=== PATIENT | female | born 1945 | race Caucasian/White ===

== ENCOUNTER → 2022-03-27 13:14 | Outpatient (CLI) | payer MEDICARE, OTHER, SELFPAY ==
[2022-03-27 14:10] VITALS: PULSE 93
--- NOTE | 2022-03-27 14:30 | PC.NURSE ---
ATTEMPTED DLCO MULTIPLE TIMES. PT UNABLE TO DO TEST. AUDIBLY WHEEZING AND WOULD BE SOA AFTER ANY EXERTION TAKING AWHILE TO RECOVER.
[2022-03-27 14:40] VITALS: BP 146/91; BP 164/97; PULSE 85; PULSE 86; RESP 24; RESP 28; O2SAT 91; O2SAT 95
--- NOTE | 2022-03-27 14:48 | CT_ITS ---
FINAL REPORT TECHNIQUE: Axial CT images were performed from the lung apices through the upper abdomen. Coronal reformats were submitted. This study was performed with techniques to keep radiation doses as low as reasonably achievable (ALARA). Individualized dose reduction techniques using automated exposure control or adjustment of mA and/or kV according to the patient's size were employed. CLINICAL HISTORY: f/u Lung nodule FINDINGS: There is no axillary adenopathy. There is no hilar or mediastinal mass or adenopathy. Heart size is normal. There is no pericardial or pleural effusion. Limited images of the upper abdomen are unremarkable. There is severe emphysema. Mild scarring is noted. There is a 5 mm nodule in the medial right upper lobe seen on image 14. A calcified granuloma is present in the left lower lobe. There is no dominant mass or suspicious nodule. IMPRESSION: 5 mm right upper lobe nodule. Recommend CT follow-up in 12 months. Reviewed, Interpreted and Dictated by Zeeshan Bullard III, MD Transcribed by Christina Anders Authenticated and [facility]
== END ==
PROVIDERS: PCP Internal Medicine Adolescent Medicine; Visit Provider Internal Medicine Pulmonary Disease
DX: R06.09 Other forms of dyspnea (principal); R91.8 Other nonspecific abnormal finding of lung field
CPT/HCPCS: 71250; 94060; 94618; 94640; 94727; 94729

== ENCOUNTER → 2022-07-27 09:27 | Outpatient (CLI) | payer MEDICARE, SELFPAY ==
--- NOTE | 2022-07-27 09:32 | XR_ITS ---
FINAL REPORT TECHNIQUE: Bone densitometry calculations of the lumbar spine and left hip were obtained. CLINICAL HISTORY: . OSTEOPOROSIS FINDINGS: DEXA BONE DENSITY AXIAL SKELETON Using L1-4, the bone mineral density of the spine is 0.966 g/cm2, corresponding to T-score of -0.7. Using the right hip, the bone mineral density of the femoral neck is 0.616 g/cm2, corresponding to a T-score of -2.7. NOTE: T-score: Standard deviation compared with peak bone mass of young adult mean. *Following the recommendations of the International Society of Bone Densitometry, classification of hip BMD is based on the lower of two T-scores; total hip or femoral neck. IMPRESSION: Osteoporosis: Lowest T-score is at or below -2.5. This patient's T-score meets the World Health Organization criteria for osteoporosis. Reviewed, Interpreted and Dictated by Zeeshan Bullard III, MD Transcribed by Antoinette Iglesias Authenticated and [facility]
--- NOTE | 2022-07-27 09:32 | MM_ITS ---
PROCEDURE INFORMATION: Exam: Bilateral Screening 3D Mammography Exam date and time: 07/27/2022 9:29 AM Age: 76 years old Clinical indication: Screening examination TECHNIQUE: Imaging protocol: Bilateral Screening tomosynthesis and 2D mammography including computer-aided detection (CAD) when performed. COMPARISON: No relevant prior studies available. FINDINGS: MAMMOGRAPHY: Breast composition: The breasts are extremely dense, which lowers the sensitivity of mammography. Mass: None. Architectural distortion: None. Calcifications: No suspicious calcifications. Asymmetric density: None. Skin thickening: None. Axillary adenopathy: None. IMPRESSION: No mammographic evidence of malignancy. Annual screening is recommended unless otherwise clinically indicated. ASSESSMENT: BI-RADS Category 1: Negative
== END ==
PROVIDERS: PCP Internal Medicine Adolescent Medicine; Visit Provider Nurse Practitioner Family
DX: Z12.31 Encounter for screening mammogram for malignant neoplasm of breast (principal); M81.0 Age-related osteoporosis without current pathological fracture
CPT/HCPCS: 77063; 77067; 77080

== ENCOUNTER → 2023-04-19 09:49 | Outpatient (CLI) | payer MEDICARE, OTHER, SELFPAY ==
--- NOTE | 2023-04-19 10:14 | CT_ITS ---
FINAL REPORT TECHNIQUE: The patient was injected with IV contrast. Axial images were obtained through the chest in a PE protocol. 3-D reconstruction images were also performed. Individualized dose reduction techniques using automated exposure control or adjustment of the MA and/or KV according to patient's size were employed. CLINICAL HISTORY: HYpoxia adn chest pain COMPARISON: 03/27/2022 FINDINGS: Mediastinal vasculature is adequately opacified. No pulmonary artery filling defects are identified to suggest PE. There is no aortic dissection. There is no axillary adenopathy. There is no hilar or mediastinal adenopathy. The heart size is normal. There is no pericardial or pleural effusion. There are advanced changes of centrilobular emphysema. Irregular density is seen in the posterior right upper lobe which appears less nodular than on prior exam, favor scarring. No new mass or nodule is seen. There is a moderate size hiatal hernia. Limited imaging of the upper abdomen demonstrates no acute abnormality. IMPRESSION: No pulmonary embolus or dissection. Advanced changes of centrilobular emphysema without significant progression from prior exam. Reviewed, Interpreted and Dictated by Enzo Harrell MD Transcribed by Shira Mays Authenticated and [facility]
[2023-04-19 10:21] LABS: Blood Urea Nitrogen 26 mg/dl (7-17); Estimated Glomerular Filt Rate 97 ml/min (>60); GFR (African American) 118 ML/MIN (>60)
== END ==
PROVIDERS: PCP Internal Medicine Adolescent Medicine; Visit Provider Internal Medicine Pulmonary Disease
DX: R06.09 Other forms of dyspnea; R07.9 Chest pain, unspecified
CPT/HCPCS: 36415; 71275; 82565; 84520; Q9967

== ENCOUNTER → 2023-05-13 12:07 | Outpatient (CLI) | payer MEDICARE, OTHER, SELFPAY ==
[2023-05-13 13:12] LABS: Basophils # 0.1 K/mm3 (0-0.2); Basophils % 1.9 % (0.1-2.0); Eosinophils # 0.3 K/mm3 (0.0-0.4); Eosinophils % 5.5 % (0.1-12.0); Hematocrit 41.5 % (37.0-47.0); Lymphocytes # 1.7 K/mm3 (0.7-4.5); Lymphocytes % 32.1 % (10-50); Mean Corpuscular HGB Conc 31.5 g/dL (31.8-35.4); Mean Corpuscular Hemoglobin 30.8 pg (27.0-31.2); Mean Corpuscular Volume 97.8 fl (81-99); Mean Platelet Volume 8.6 fl (7.4-10.4); Monocytes # 0.3 K/mm3 (0.1-1.0); Monocytes % 4.8 % (1.7-9.3); Neutrophils % 55.7 % (37.0-80.0); Platelet Count 233 K/mm3 (142-424); Red Blood Count 4.24 M/mm3 (4.20-5.40); Red Cell Distribution Width 12.4 % (11.5-17.5); White Blood Count 5.4 K/mm3 (4.8-10.8)
[2023-05-13 13:41] LABS: Alanine Aminotransferase 22 U/L (12-78); Albumin Level 4.1 g/dl (3.5-5.0); Alkaline Phosphatase 97 U/L (38-126); Anion Gap 11.6 mEq/L (5-15); Aspartate Amino Transferase 24 U/L (14-36); Bilirubin,Direct 0.2 mg/dl (0.0-0.4); Bilirubin,Indirect 0.4 mg/dL (0.0-0.9); Bilirubin,Total 0.6 mg/dl (0.2-1.3); Bilirubin,Unconjugated 0.4 mg/dL (0.0-1.1); Blood Urea Nitrogen 25 mg/dl (7-17); Calcium 9.4 mg/dl (8.4-10.2); Carbon Dioxide 36 mmol/L (22.0-30.0); Chloride 91 mmol/L (98-107); Chol/HDL Ratio 1.9 (1-3.5); Cholesterol 181 mg/dl (140-200); Estimated Glomerular Filt Rate 97 ml/min (>60); GFR (African American) 118 ML/MIN (>60); Glucose 84 mg/dl (74-100); HDL Cholesterol 96 mg/dl (40-60); Magnesium 1.6 mg/dl (1.6-2.3); Potassium 4.6 mmoL/L (3.5-5.1); Sodium 134 mmol/L (136-145); Triglycerides 71 mg/dl (30-150); VLDL Cholesterol 14 mg/dL (0-40)
[2023-05-13 13:53] LABS: Direct LDL Cholesterol 76.26 mg/dL (100-129)
[2023-05-13 13:58] LABS: Free T4 (Free Thyroxine) 1.11 ng/dl (0.78-2.19)
[2023-05-13 14:10] LABS: Thyroid Stimulating Hormone 0.89 uIU/mL (0.465-4.68)
== END ==
PROVIDERS: PCP Internal Medicine Adolescent Medicine; Visit Provider Physician Assistant
DX: I10 Essential (primary) hypertension (principal); J44.9 Chronic obstructive pulmonary disease, unspecified; R00.0 Tachycardia, unspecified; R06.09 Other forms of dyspnea; R07.89 Other chest pain
CPT/HCPCS: 36415; 80048; 80061; 80076; 83735; 84439; 84443; 85025; 93270

== ENCOUNTER → 2023-05-27 09:00 | Outpatient (CLI) | payer MEDICARE, OTHER, SELFPAY ==
[2023-05-27] VITALS (8 sets, daily range): BP systolic 133–161; BP diastolic 71–88; PULSE 68–88; RESP 18–22; TEMP 36.8; O2SAT 96–98; BMI 17.9
--- NOTE | 2023-05-27 09:01 | CT_ITS ---
APPROVED REPORT Sales Project Coordinator: CLINICAL INDICATION Chest Pain TECHNIQUE Image Acquisition: A 128 slice MDCT scanner (AG&Pa View) was used for data acquisition. A noncontrast coronary calcium scan was performed. Bolus tracking in the ascending aorta with a threshold of 180 HU was performed. Immediately afterwards, ECG synchronized cardiac CT was then performed from the cardiac base to apex using retrospective gating with ECG tube current modulation. A total of 85 mL of Isovue 370 mg/mL contrast medium was administered at 5 mL/sec followed by a saline flush using a biphasic injection protocol. A tube voltage of 120 KVp was used. The patient received the following medications prior to the cardiac CT. 100 mg of oral metoprolol 30 mg of intravenous metoprolol. 0.8 mg of sublingual nitroglycerin. The average heart rate at the time of acquisition was 66 bpm and regular. Image Reconstruction Transaxial images were reconstructed at 0.67 mm slide thickness. Data was reviewed interactively on an advanced workstation capable of 2 and 3-dimensional displays in all conventional reconstruction formats, including multiplanar reformations, maximum intensity projections, curved multiplanar reformations, and volume rendered reconstructions. When applicable, selected routine images describing the relevant coronary anatomy and pathology were saved and sent to PACS. Complications None Technical Quality Overall image quality was good. Coronary artery opacification was adequate. Total DLP (Dose-Length Product) is 1481.6 mGy-cm. The reported value represents the total of one or more individual components during the CT acquisition of this date and at this time, and as such, the same value may appear in more than one CT report depending on the interpreting/reporting physicians. COMPARISON None FINDINGS CT Coronary Calcium Scoring LMA (Left Main Artery) = 0 LAD (Left Anterior Descending) = 549 LCX (Left Coronary Circumflex) = 0 RCA (Right Coronary Artery) = 2 Total Calcium Score = 551 using the AJ-130 method. The interpretation of the calcium heart score is based on the following continuum*: 0 = no calcified plaque detected (risk of coronary artery disease is very low ??? less than 5%) 1-10 = calcium detected in extremely minimal levels (risk of coronary diseases is still low ??? less than 10%) 11-100 = mild levels of plaque detected with certainty (mild or minimal narrowing of heart arteries is likely) 101-400 = definite,at least moderate levels of plaque detected (relatively high risk of a heart attack within 3-5 years) >401-999 = extensive levels of plaque detected (high risk of heart attack, high levels of vascular disease are present, high likelihood of at least one significant coronary narrowing) *The calcium heart score quantifies the burden of coronary calcification/plaque in the coronary arteries. The calcium heart score is not able to evaluate the presence or burden of non-calcified (i.e. soft) plaque. The observed calcium score of 551 is at 75 percentile for subjects of the same age, sex, and race/ethnicity. There is also identifiable calcification in the ascending and descending aorta, aortic valve, and mitral annulus. Coronary CT Angiography Coronaries have normal origin and proximal course. The coronary arterial system is right dominant. Note: Stenosis is reported as maximum percentage diameter stenosis. Stenosis grading is reported using the following scheme: Quantitative Stenosis Grading: Left Main (LM): The left main originates normally from the left sinus of Valsalva. The LM bifurcates into the left anterior descending artery and left circumflex artery. The LM is patent with no evidence of atherosclerosis. Left A
--- NOTE | 2023-05-27 09:17 | CA_ITS ---
APPROVED REPORT EXAM: Comprehensive 2D, Doppler, and color-flow Echocardiogram Balance Wheel Arm Burnisher: LUIGI Dowling, RVS Ht: 5 ft 0 in Wt: 92lbs BSA: 1.34 BP: 135/75 mmHg Indications: COPD, SOB, HAMILTON, HTN, MURMUR Echo Enhancing Agent Comments: Patient scanned upright due to destauration of O2- dyspnea with any exertion. 2D Dimensions Aortic Root 2.19 cm F: 2.7 - 3.3 LA Volume 30.70 mL Left Atrium 2.14 cm F: 2.7 - 3.8 LA Volume Index 22.91 mL/m2 (M/F) 16-34 LVOT 1.89 cm (M/F) 1.5-2.5 M-Mode Dimensions RVDd 1.85 cm (0.9-2.6) LA Diam 3.67 cm (1.9-4.0) LVDd 4.20 cm (3.5-5.7) Ao Diam 3.53 cm (2.0-3.7) LVDs 2.95 cm (3.5-5.7) IVSd 0.81 cm (0.6-1.1) PWd 0.64 cm (0.6-1.1) EF (Teich) 57.30% EPSs 0.37 cm FS 29.80% EDV (Teich) 78.60 mL TAPSE 1.88 (<1.7) ESV (Teich) 33.60 mL LV Diastology E Decel Time 200.00 (160-240 msec) E/A Ratio 0.83 MED E' 7.00 (< 7 cm/sec) MED A' 13.00 cm/s E'/MED E' Ratio 12.56 (>14) LAT E' 8.80 (<10 cm/sec) LAT A' 14.00 cm/s E/LAT E' Ratio 9.99 (>14) Aortic Valve LVOT Max 110.00 (70-110 cm/s) LVOT VTI 26.71 cm AoV Peak Noe. 104.00 (50-130 cm/s) AO Peak GR. 4.40 mmHg AO Mean GR. 2.20 (<5 mmHg) AO VTI 23.67 (18-25 cm) JANIE (VTI) 3.17 (2.5-4.5 cm2) Mitral Valve MV A Velocity 107.00 (40-130 cm/s) E/A Ratio 0.83 MV Decel. Time 200.00 (160-240 ms) Pulmonary Valve PV Peak Velocity 80.00 (50-150 cm/s) IL End VMAX 252.00 cm/s Tricuspid Valve TR P. Velocity 285.00 cm/s RAP Estimate 12.00 mmHg RVSP 44.60 mmHg Left Ventricle The left ventricle is normal size. The left ventricular systolic function is normal. The left ventricular ejection fraction is within the normal range. There is increased LV wall thickness (IVSd=1.4 cm). There is no LVOT gradient at rest. There is normal LV segmental wall motion. Transmitral Doppler flow pattern suggests impaired LV relaxation. LVEF is 65%. Right Ventricle The right ventricle is normal size. The right ventricular systolic function is normal. Atria The left atrium size is normal. The right atrium size is normal. There is no Doppler evidence of interatrial shunt. Aortic Valve The aortic valve is mildly thickened. There is no aortic valvular stenosis. No aortic regurgitation is present. Mitral Valve The mitral valve is mildly thickened. There is chordal systolic anterior motion (COLIN), but no COLIN of the leaflet itself. No evidence of mitral valve stenosis. Mild mitral regurgitation. Tricuspid Valve The tricuspid valve leaflets are thin and pliable. Trace tricuspid regurgitation. There is insufficient TR jet to estimate RVSP. Pulmonic Valve The pulmonary valve is normal in structure. Trace pulmonic regurgitation. Great Vessels The aortic root is normal in size. The ascending aorta is not well visualized. IVC is normal in size and collapses >50% with inspiration. Pericardium There is no pericardial effusion. Other Information Study Quality: Fair Conclusion Normal biventricular systolic function. Markedly increased LV wall thickness (IVSd 1.4 cm). Mild MR. Further evaluation for infiltrative disease, namely amyloidosis and HCM, is recommended. Cardiac MRI, PYP scan, and lab testing for amyloidosis is suggested, if clinically indicated. Electronically signed by : Swetha Hale MD 05/29/2023 23:12:21
--- NOTE | 2023-05-27 13:52 | PC.NURSE ---
1215- pt arrived in postop via stretcher, [facility]I was given report from Viola- pt comfortable on stretcher with O2 NC @ 3L, VSS 1230- ECHO staff took pt for procedure via her WC with O2 NC @ 3L during transport, Echo staff to [place] pt
== END ==
PROVIDERS: PCP Internal Medicine Adolescent Medicine; Visit Provider Physician Assistant
DX: I10 Essential (primary) hypertension (principal); J44.9 Chronic obstructive pulmonary disease, unspecified; R00.0 Tachycardia, unspecified; R06.09 Other forms of dyspnea; R07.89 Other chest pain
CPT/HCPCS: 75574; 93306; Q9967

== ENCOUNTER 2023-06-24 08:05 | Day surgery (SDC) | payer MEDICARE, OTHER, SELFPAY ==
[2023-06-24] VITALS (13 sets, daily range): BP systolic 142–186; BP diastolic 52–105; PULSE 62–79; RESP 17–18; O2SAT 90–100; BMI 15.4
--- NOTE | 2023-06-24 07:08 | IR_ITS ---
APPROVED REPORT Patient Location: Outpatient Java Programmer Analyst: EDILMA Willingham RT (R) PROCEDURES Selective coronary angiogram Drug-eluting stent deployment to the mid LAD INDICATION Coronary artery disease, Abnormal CCTA, Informed consent was obtained prior to the procedure. COMPLICATIONS NONE Estimated Blood Loss: LESS THAN 10 ML TECHNIQUE One percent lidocaine used to anesthetize the right anterior aspect of the wrist. The right radial artery was accessed via the Seldinger technique. A 6 [place] sheath was placed in the right radial artery. 2.5 mg of Verapamil, 800 mcg of nitroglycerin, 1mg Lidocaine and 5000 U Heparin were given through the arterial sheath. The papa catheter was also used to perform selective coronary angiogram. At the end of the diagnostic angiogram therapeutic heparin was administered giving a therapeutic ACT and the guide catheter was placed in the left main artery followed by Choice PT extra-support wire placed distally. A 2.75 x 26 mm [place] frontier stent was deployed in the mid LAD at 18 taran reducing the severe stenosis to 0%. CARSON-3 flow was present before and after the procedure. At the end of the procedure the apparatus was removed the sheath was removed and hemostasis was achieved using TR banding patient was transferred to the postop holding in stable condition ANGIOGRAPHIC RESULTS The left main artery Normal The left anterior descending artery Has mild calcified proximal 10 to 20% stenosis with a mid vessel 30% stenosis followed by an additional mid vessel eccentric calcified 70 to 80% stenosis. A large first diagonal artery has an ostial proximal smooth 30% stenosis The circumflex artery Is nondominant yet still large and has mild atheromatous plaque nothing greater than 10 to 20% The right coronary artery Is a dominant vessel and has a proximal eccentric 30 to 40% calcified stenosis The HARDEN ventriculogram reveals Not performed The left ventricular end-diastolic pressure Not measured IMPRESSION Severe mid LAD disease as described above Successful stenting of the mid LAD severe disease reduced to 0% with 1 drug-eluting stent Persistent mild to moderate stenosis in the proximal dominant right coronary artery, first diagonal artery, and mild disease in the nondominant circumflex artery PLAN 1. Plavix 75+ aspirin 81 mg daily 2. LDL less than 55 to be achieved with high intensity statin 3. Avoidance of tobacco products 4. Risk factor modification 5. Cardiac rehabilitation Electronically signed by : Rory Simpson MD 06/24/2023 10:31:56
[2023-06-24 08:52] LABS: Basophils # 0.1 K/mm3 (0-0.2); Basophils % 1.2 % (0.1-2.0); Eosinophils # 0.4 K/mm3 (0.0-0.4); Eosinophils % 4.6 % (0.1-12.0); Hematocrit 41.3 % (37.0-47.0); Hemoglobin 13.5 g/dL (12.2-16.2); Lymphocytes # 1.9 K/mm3 (0.7-4.5); Lymphocytes % 24.9 % (10-50); Mean Corpuscular HGB Conc 32.7 g/dL (31.8-35.4); Mean Corpuscular Hemoglobin 32.4 pg (27.0-31.2); Mean Corpuscular Volume 99.1 fl (81-99); Mean Platelet Volume 8.3 fl (7.4-10.4); Monocytes # 0.3 K/mm3 (0.1-1.0); Monocytes % 3.8 % (1.7-9.3); Neutrophils # 5.1 K/mm3 (1.8-7.8); Neutrophils % 65.4 % (37.0-80.0); Platelet Count 229 K/mm3 (142-424); Red Blood Count 4.17 M/mm3 (4.20-5.40); Red Cell Distribution Width 12.2 % (11.5-17.5); White Blood Count 7.8 K/mm3 (4.8-10.8)
[2023-06-24 09:01] LABS: Blood Urea Nitrogen 21 mg/dl (7-17); Calcium 8.9 mg/dl (8.4-10.2); Carbon Dioxide 37 mmol/L (22.0-30.0); Chloride 93 mmol/L (98-107); Creatinine Clearance Estimated 31 mL/min (50-200); Estimated Glomerular Filt Rate 97 ml/min (>60); GFR (African American) 118 ML/MIN (>60); Glucose 101 mg/dl (74-100); Sodium 139 mmol/L (136-145)
[2023-06-24 11:07] LABS: CATHL Activated Clotting Time 351 SEC (74-125)
== END 2023-06-24 14:08 | disposition home or self-care (01) ==
LOC: CATHLAB 08:06
PROVIDERS: PCP Internal Medicine Adolescent Medicine; Visit Provider Internal Medicine
DX: R06.09 Other forms of dyspnea (principal); R93.1 Abnormal findings on diagnostic imaging of heart and coronary circulation; R94.31 Abnormal electrocardiogram [ECG] [EKG]; Z79.899 Other long term (current) drug therapy; J96.11 Chronic respiratory failure with hypoxia; Z99.81 Dependence on supplemental oxygen; J44.9 Chronic obstructive pulmonary disease, unspecified; I10 Essential (primary) hypertension; I25.10 Atherosclerotic heart disease of native coronary artery without angina pectoris
CPT/HCPCS: 80048; 85025; 85347; 92928; 93454; 99152; C1725; C1769; C1876; C9600; J1644; Q9967

== ENCOUNTER 2023-07-17 08:16 | Observation (INO) | payer MEDICARE, OTHER, SELFPAY ==
[2023-07-17] VITALS (27 sets, daily range): BP systolic 135–198; BP diastolic 75–135; PULSE 74–89; RESP 15–26; TEMP 36.6–36.7; O2SAT 90–99; BMI 17.9; BMI 18.2
--- NOTE | 2023-07-17 08:20 | XR_ITS ---
PROCEDURE INFORMATION: Exam: XR Chest Exam date and time: 07/17/2023 8:22 AM Age: 77 years old Clinical indication: Cough; Additional info: Copd, stents, SOA TECHNIQUE: Imaging protocol: Radiologic exam of the chest. Views: 1 view. COMPARISON: CT ANGIO CHEST PE PROTOCOL 04/19/2023 10:35 AM FINDINGS: Lungs: Hyperexpanded lung castro consistent with COPD. Opacities in both bases may represent atelectasis or pneumonia.. Emphysematous changes in the upper lobes Pleural spaces: Unremarkable. No pleural effusion. No pneumothorax. Heart/Mediastinum: Unremarkable. No cardiomegaly. Bones/joints: Unremarkable. IMPRESSION: 1. Hyperexpanded lung castro consistent with COPD. 2. Opacities in both bases may represent atelectasis or pneumonia..
--- NOTE | 2023-07-17 08:45 | HMH.EDCP ---
Discharge Plan Disposition Patient Disposition: Admitted Chief Complaint: Shortness of Breath/Dyspnea Clinical Impressions Clinical Impression: COPD exacerbation Discharge ED Provider: Moreno Glover HPI General Chief Complaint: Shortness of Breath/Dyspnea Stated Complaint: SOA/ no energy/ stent 2w ago Time Seen by Provider: 07/17/23 08:20 Mode of Arrival: Wheelchair Source of Information: Patient and Relative Limitations: No Limitations Description of Symptoms (Recalled from ER Triage Doc. by RN): Per relative patient has had increased shortness of breath and low energy since having a stent placed in her LAD on 06/24. Patient is requiring more oxygen that usual. History of Present Illness HPI narrative: 77-year-old female history of hypertension, hyperlipidemia, CAD status post LAD stenting on 06/24/2023 currently on aspirin and Plavix, COPD on 3 L nasal cannula at home presenting with shortness of breath. Patient states that shortness of breath has been going on for the past couple of days. Family at bedside to corroborate story. He states that for the past couple days, she has been getting short of breath with even standing up and ambulating across the room. Today, was so short of breath she was unable to get up out of bed and walk to a chair, so brought her in for further evaluation. They have not turned her oxygen up, but intermittently bouncing between 3-3.5, which they state is usual. Patient has been coughing, but denies change in cough, change in sputum, change in color, fevers or chills, nausea or vomiting, dysuria, hematuria, chest pain, PND, orthopnea, or any other concerns. Related Data Home Medications Medication Instructions Recorded Confirmed alendronate 70 mg tablet 70 mg PO WEEKLY 03/18/22 07/17/23 losartan 50 mg tablet 50 mg PO DAILY 03/18/22 07/17/23 cholecalciferol (vitamin D3) 1,250 1,250 mcg PO WEEKLY 08/05/22 07/17/23 mcg (50,000 unit) tablet metoprolol succinate 25 mg 25 mg PO DAILY 07/17/23 07/17/23 tablet,extended release 24 hr Previous Rx's Medication Instructions Recorded ipratropium 0.5 mg-albuterol 3 mg 3 ml inhalation QID PRN shortness 08/05/22 (2.5 mg base)/3 mL nebulization of breath or wheezing 90 days #270 soln mL umeclidinium 62.5 mcg/actuation 1 inh inhalation DAILY 90 days #90 08/05/22 blister powder for inhalation ea (Incruse Ellipta) fluticasone 500 mcg-salmeterol 50 1 inh inhalation BID #180 ea 03/23/23 mcg/dose blistr powdr for inhalation (Advair Diskus) albuterol sulfate 90 mcg/actuation 2 inh inhalation QID PRN shortness 06/24/23 aerosol inhaler of breath or wheezing 90 days #8.5 grams aspirin 81 mg chewable tablet 81 mg PO DAILY #30 tabs 06/24/23 atorvastatin 20 mg tablet 20 mg PO DAILY #30 tabs 06/24/23 clopidogrel 75 mg tablet (Plavix) 75 mg PO DAILY #30 tabs 06/24/23 Allergies Allergy/AdvReac Type Severity Reaction Status Date / Time No Known Allergies Allergy Verified 07/05/23 10:18 [facility] Disclaimer: The information contained in this section may have been updated after the patient was seen, as this information can be updated by other users. Medical History (Updated 07/17/23 @ 11:53 by Moreno Glover MD) Abnormal cardiac CT angiography Abnormal ECG Chest pain Chronic respiratory failure with hypoxia, on home oxygen therapy COPD (chronic obstructive pulmonary disease) COPD exacerbation Coronary artery disease Dyspnea on exertion History of COPD HTN (hypertension) Lung nodule Respiratory failure with hypoxia Stopped smoking with greater than 30 pack year history Tachycardia Surgical History (Updated 07/05/23 @ 10:17 by Christen Jennings, RN) History of arthroplasty of left ankle History of coronary artery stent placement Hx of cholecystectomy Family History Brother History of heart disease Social History Smoking
--- NOTE | 2023-07-17 08:55 | ECG_ITS ---
APPROVED REPORT Exam: Resting ECG HR:77 bpm ECG Measurements Heart Rate 77 AXES HI 154 P 78 QRSd 82 QRS 79 QT 379 T 69 QTc 411 Conclusion SINUS RHYTHM INDETERMINATE AXIS NORMAL ECG UNCONFIRMED REPORT Electronically signed by : Shawn Mata MD 07/19/2023 08:25:37
[2023-07-17 08:59] LABS: Basophils # 0.1 K/mm3 (0-0.2); Basophils % 0.8 % (0.1-2.0); Eosinophils # 0.3 K/mm3 (0.0-0.4); Eosinophils % 2.4 % (0.1-12.0); Hematocrit 42.2 % (37.0-47.0); Hemoglobin 13.3 g/dL (12.2-16.2); Lymphocytes # 1.4 K/mm3 (0.7-4.5); Mean Corpuscular HGB Conc 31.5 g/dL (31.8-35.4); Mean Corpuscular Hemoglobin 31.7 pg (27.0-31.2); Mean Corpuscular Volume 100.6 fl (81-99); Mean Platelet Volume 8.4 fl (7.4-10.4); Monocytes # 0.5 K/mm3 (0.1-1.0); Monocytes % 4.7 % (1.7-9.3); Neutrophils # 8.7 K/mm3 (1.8-7.8); Neutrophils % 79.1 % (37.0-80.0); Platelet Count 233 K/mm3 (142-424); Red Blood Count 4.19 M/mm3 (4.20-5.40); Red Cell Distribution Width 12.7 % (11.5-17.5)
[2023-07-17 09:00] LABS: VBG Base Excess 14.2 mmol/L (-2.4-2.3); VBG HCO3 40.4 mmol/L (23-30); VBG Oxygen Saturation 63.6 % (50-70); VBG PH 7.31 mmol/L (7.31-7.41); VBG PO2 33.2 mmol/L (28-40); VBG Total CO2 42.9 mmol/L (23-27)
[2023-07-17 09:03] LABS: VBG PCO2 81.7 mmol/L (35-51)
[2023-07-17 09:06] LABS: Alanine Aminotransferase 29 U/L (12-78); Albumin/Globulin Ratio 1.3 (1.1-1.8); Alkaline Phosphatase 147 U/L (38-126); Aspartate Amino Transferase 28 U/L (14-36); Bilirubin,Total 0.5 mg/dl (0.2-1.3); Blood Urea Nitrogen 22 mg/dl (7-17); Calcium 8.6 mg/dl (8.4-10.2); Chloride 89 mmol/L (98-107); Creatinine Clearance Estimated 32 mL/min (50-200); Estimated Glomerular Filt Rate 97 ml/min (>60); GFR (African American) 118 ML/MIN (>60); Globulin 3.1 g/dL (1.3-3.2); Glucose 109 mg/dl (74-100); Potassium 4.1 mmoL/L (3.5-5.1); Sodium 136 mmol/L (136-145); Total Protein,Serum 7.1 g/dl (6.3-8.2)
--- NOTE | 2023-07-17 09:06 | PC.NURSE ---
VBG results called to . Bipap order placed by
--- NOTE | 2023-07-17 09:12 | PC.NURSE ---
Respiratory at BS for BIPAP
[2023-07-17 09:13] LABS: Anion Gap 10.1 mEq/L (5-15); Carbon Dioxide 41 mmol/L (22.0-30.0)
[2023-07-17 09:18] LABS: NT Pro Brain Natriuretic Pep. 1350 pg/mL (0-450); Troponin I < 0.01 ng/ml (0.00-0.034)
[2023-07-17 10:48] LABS: VBG Base Excess 15.6 mmol/L (-2.4-2.3); VBG HCO3 41.6 mmol/L (23-30); VBG Oxygen Saturation 70.3 % (50-70); VBG PH 7.32 mmol/L (7.31-7.41); VBG PO2 36.8 mmol/L (28-40); VBG Total CO2 44.2 mmol/L (23-27)
[2023-07-17 10:51] LABS: VBG PCO2 82.1 mmol/L (35-51)
--- NOTE | 2023-07-17 11:31 | PC.NURSE ---
Dr Barahona, hospitalist at the bedside
--- NOTE | 2023-07-17 11:49 | EXP.HP ---
History of Present Illness *Admission Date: 07/17/23 *Reason for visit:: dyspnea *History of present illness: Ms. Rodríguez is a 77-year-old female on chronic oxygen therapy with COPD and CAD. Recently had stents placed to her LAD on 06 24. Has been requiring more oxygen than usual. She presented to the ER because of her shortness of breath. States that over the past few days she has been having increased dyspnea with exertion. Had to go up from 3 L to 4 L. Nebulizer not giving her benefit. On arrival to the ER. In distress. Shortness of breath with inability to walk from bed to her chair. On evaluation, chest imaging concerning for hyperinflation. White cell count elevated 11,000. Also has an elevation in her BNP. Was initiated on BiPAP. Given her distress, medicine was consulted for admission and further management. No significant improvement in air movement with nebulizers. On evaluation, patient states she is breathing a little bit better than when she came in. She denies any change in her cough, increased sputum, fever or chills, nausea or vomiting. Denies any chest pain. Discussed adjusting treatment and sending her home with treatment for COPD versus inpatient management and observation overnight. Patient does not feel comfortable going home given her current situation and distress with symptoms. [facility] Disclaimer: The information contained in this section may have been updated after the patient was seen, as this information can be updated by other users. Medical History Abnormal cardiac CT angiography Abnormal ECG Chest pain Chronic respiratory failure with hypoxia, on home oxygen therapy COPD (chronic obstructive pulmonary disease) COPD exacerbation Coronary artery disease Dyspnea on exertion History of COPD HTN (hypertension) Lung nodule Respiratory failure with hypoxia Stopped smoking with greater than 30 pack year history Tachycardia Surgical History History of arthroplasty of left ankle History of coronary artery stent placement Hx of cholecystectomy Family History History of heart disease Brother Social History Smoking Status: Former smoker alcohol intake: never current occupational status: retired Travel in the last 8 weeks: None Review of Systems Review of Systems Review of systems (narrative): Review of system Meds Home Medications and Allergies Home Medications Medication Instructions Recorded Confirmed Type alendronate 70 mg tablet 70 mg PO WEEKLY Oseoporosis 03/18/22 07/17/23 History losartan 50 mg tablet 50 mg PO DAILY High Blood Pressure 03/18/22 07/17/23 History cholecalciferol (vitamin D3) 1,250 1,250 mcg PO WEEKLY Supplement 08/05/22 07/17/23 History mcg (50,000 unit) tablet albuterol sulfate 90 mcg/actuation 2 inh inhalation QIDP PRN 07/17/23 07/17/23 History aerosol inhaler shortness of breath or wheezing aspirin 81 mg chewable tablet 81 mg PO DAILY Heart Disease 07/17/23 07/17/23 History atorvastatin 20 mg tablet 20 mg PO DAILY Cholesterol 07/17/23 07/17/23 History clopidogrel 75 mg tablet (Plavix) 75 mg PO DAILY Blood Thinner 07/17/23 07/17/23 History fluticasone 500 mcg-salmeterol 50 1 inh inhalation BIDRT Copd 07/17/23 07/17/23 History mcg/dose blistr powdr for inhalation (Advair Diskus) ipratropium 0.5 mg-albuterol 3 mg 3 ml inhalation QIDP PRN shortness 07/17/23 07/17/23 History (2.5 mg base)/3 mL nebulization of breath or wheezing soln metoprolol succinate 25 mg 25 mg PO DAILY High Blood Pressure 07/17/23 07/17/23 History tablet,extended release 24 hr umeclidinium 62.5 mcg/actuation 1 inh inhalation DAILY Copd 07/17/23 07/17/23 History blister powder for inhalation (Incruse Ellipta) New Prescriptions to Start Prescriptions:
--- NOTE | 2023-07-17 12:42 | HMH.PHAINT1 ---
Pharmacy Intervention Comments: MEDICATION RECONCILIATION COMPLETE USING EXTERNAL PHARMACY FILL HISTORY AND MOST RECENT CARDIOLOGY OFFICE VISIT NOTE.
--- NOTE | 2023-07-17 12:45 | PC.NURSE ---
Per MD Gray pt to come off bipap and be put on 4 L NC. Respiratory aware
--- NOTE | 2023-07-17 13:31 | PC.NURSE ---
arrived by w/c from ED
[2023-07-17 13:59] LABS: Adenovirus,PCR Not Detected (NotDetected); Coronavirus 19, PCR Not Detected (NotDetected); Coronavirus 229E Not Detected (NotDetected); Coronavirus NL63 Not Detected (NotDetected); Coronavirus OC43 Not Detected (NotDetected); Coronovirus HKU1,PCR Not Detected (NotDetected); Human Metapneumovirus Not Detected (NotDetected); Influenza A, PCR Not Detected (NotDetected); Influenza AH1, 2009 Not Detected (NotDetected); Influenza AH1, PCR Not Detected (NotDetected); Influenza AH3,PCR Not Detected (NotDetected); Influenza B, PCR Not Detected (NotDetected); Parainfluenza 1, PCR Not Detected (NotDetected); Parainfluenza 2, PCR Not Detected (NotDetected); Parainfluenza 3, PCR Not Detected (NotDetected); Parainfluenza 4, PCR Not Detected (NotDetected); Respiratory Syncytial Virus Not Detected (NotDetected); Rhinovirus/Enterovirus Not Detected (NotDetected)
[2023-07-18 00:04] VITALS: PULSE 81
[2023-07-18 00:05] VITALS: PULSE 80
[2023-07-18 04:00] VITALS: BP 141/90; PULSE 95; RESP 20; TEMP 36.8; O2SAT 90; BMI 18.2
--- NOTE | 2023-07-18 05:35 | PC.NURSE ---
Patient has been asleep most the shift. No acute changes. Complained at beginning of shift of increased shortness of breath called respiratory and breathing treatment was given. Patient since has had no complaints. New orders received for Ativan PRN patient did not have any episodes of anxiety this shift. Patients lungs are clear but diminished throughout. Remains on 3LNC, no edema noted. Call chester, personal belongings, water pitcher, and bedside table all within reach. Will continue with POC and medsurg protocols.
[2023-07-18 06:27] VITALS: PULSE 87; PULSE 89; O2SAT 94
[2023-07-18 07:43] VITALS: BP 160/94; PULSE 99; RESP 19; TEMP 36.6; O2SAT 92
[2023-07-18 07:44] LABS: Basophils % 0.2 % (0.1-2.0); Eosinophils % 0.1 % (0.1-12.0); Hematocrit 40.7 % (37.0-47.0); Hemoglobin 13.1 g/dL (12.2-16.2); Lymphocytes # 0.7 K/mm3 (0.7-4.5); Lymphocytes % 10.9 % (10-50); Mean Corpuscular HGB Conc 32.2 g/dL (31.8-35.4); Mean Corpuscular Hemoglobin 32.1 pg (27.0-31.2); Mean Corpuscular Volume 99.6 fl (81-99); Mean Platelet Volume 8.5 fl (7.4-10.4); Monocytes # 0.1 K/mm3 (0.1-1.0); Monocytes % 1.8 % (1.7-9.3); Neutrophils # 5.6 K/mm3 (1.8-7.8); Platelet Count 225 K/mm3 (142-424); Red Blood Count 4.09 M/mm3 (4.20-5.40); Red Cell Distribution Width 12.6 % (11.5-17.5); White Blood Count 6.4 K/mm3 (4.8-10.8)
[2023-07-18 07:56] LABS: MANUAL DIFFERENTIAL MANUAL DIFFERENTIAL (MANUAL DIFF)
[2023-07-18 07:59] LABS: Alanine Aminotransferase 25 U/L (12-78); Albumin Level 3.7 g/dl (3.5-5.0); Albumin/Globulin Ratio 1.2 (1.1-1.8); Alkaline Phosphatase 127 U/L (38-126); Aspartate Amino Transferase 32 U/L (14-36); Bilirubin,Total 0.4 mg/dl (0.2-1.3); Blood Urea Nitrogen 23 mg/dl (7-17); Calcium 8.6 mg/dl (8.4-10.2); Chloride 87 mmol/L (98-107); Creatinine Clearance Estimated 32 mL/min (50-200); Estimated Glomerular Filt Rate 120 ml/min (>60); GFR (African American) 145 ML/MIN (>60); Globulin 3.2 g/dL (1.3-3.2); Glucose 166 mg/dl (74-100); Magnesium 1.3 mg/dl (1.6-2.3); Potassium 4.1 mmoL/L (3.5-5.1); Sodium 134 mmol/L (136-145); Total Protein,Serum 6.9 g/dl (6.3-8.2)
--- NOTE | 2023-07-18 08:00 | XR_ITS ---
PROCEDURE INFORMATION: Exam: XR Chest Exam date and time: 07/18/2023 8:20 AM Age: 77 years old Clinical indication: Dyspnea TECHNIQUE: Imaging protocol: Radiologic exam of the chest. Views: 1 view. COMPARISON: 1. CR XR CHEST PORTABLE 07/17/2023 8:[address] ANGIO CHEST PE PROTOCOL 04/19/2023 10:35 AM FINDINGS: Lungs: Pulmonary hyperexpansion, similar to comparison. Minimal hazy interstitial prominence at the right lung base. Small area of nodular consolidation at the left lung base. No other focal consolidation. Pleural spaces: Unremarkable. No pleural effusion. No pneumothorax. Heart/Mediastinum: Unremarkable. No cardiomegaly. Bones/joints: Unremarkable. IMPRESSION: 1. Chronic obstructive pulmonary disease. 2. Interstitial prominence at the right lung base may represent edema or pneumonia. Area of nodular consolidation at the left lung base may represent pneumonia or neoplasm. If clinical concern exists, further evaluation with CT would be helpful to differentiate.
[2023-07-18 08:12] LABS: Anion Gap 11.1 mEq/L (5-15); Carbon Dioxide 40 mmol/L (22.0-30.0)
[2023-07-18 10:52] LABS: Eosinophils % 1 % (0-3); Lymphocytes % 4 % (10-50); Monocytes % 2 % (2-9); Neutrophils % 93 % (42-76); Platelet Estimate Normal; RBC Morphology Normal; Total Cells Counted 100
[2023-07-18 11:01] VITALS: PULSE 84; PULSE 87
--- NOTE | 2023-07-18 11:27 | EXP.DC.SUM ---
General Admission date:: 07/17/23 Discharge date: 07/18/23 HPI HPI HPI: Ms. Rodríguez is a 77-year-old female on chronic oxygen therapy with COPD and CAD. Recently had stents placed to her LAD on 06 24. Has been requiring more oxygen than usual. She presented to the ER because of her shortness of breath. States that over the past few days she has been having increased dyspnea with exertion. Had to go up from 3 L to 4 L. Nebulizer not giving her benefit. On arrival to the ER. In distress. Shortness of breath with inability to walk from bed to her chair. On evaluation, chest imaging concerning for hyperinflation. White cell count elevated 11,000. Also has an elevation in her BNP. Was initiated on BiPAP. Given her distress, medicine was consulted for admission and further management. No significant improvement in air movement with nebulizers. On evaluation, patient states she is breathing a little bit better than when she came in. She denies any change in her cough, increased sputum, fever or chills, nausea or vomiting. Denies any chest pain. Discussed adjusting treatment and sending her home with treatment for COPD versus inpatient management and observation overnight. Patient does not feel comfortable going home given her current situation and distress with symptoms. Hospital Course Hospital Course Hospital Course: 77-year-old female with COPD on chronic oxygen therapy, presents with exacerbation and acute hypoxia. Initial concern on workup in the ER for hypercarbia, appears chronic and compensated however. No improvement with BiPAP. Mentation normal. Discussed case with ER physician, request admission for further management given patient's respiratory distress, increased oxygen requirement, high risk of decompensation. Medicine agreed to admit for further management. Patient started on antibiotics and steroids. Showing improvement by morning. On baseline oxygen. Moving air better though still poorly. Appears at baseline function. Patient comfortable with going home for continued treatment for COPD exacerbation. Noted to have anxiety overnight. Stable for discharge. Problems addressed as follows Acute on chronic hypoxemic respiratory failure COPD exacerbation increased oxygen from baseline, respiratory distress on arrival, -X-ray personally reviewed with significant hyperexpansion of lungs and flattening of diaphragm. Bilateral lower lobe patchy airspace findings concerning for pneumonia versus CHF versus scarring. Given elevation in BNP, diuresed with Lasix 40 mg IV x 1. Patient had good response. Had some anxiety overnight as well that responded well to low-dose Ativan. Started on ceftriaxone in the ER and methylprednisolone. Initiated on DuoNebs and budesonide at admission. Stable oxygen requirement since arriving to the floor at baseline 3 L. Transition to prednisone 40 mg daily to complete 5-day course and cefdinir to complete 5-day course of antibiotics. Continue home oxygen 3 L for goal saturation greater 90%. Leukocytosis improved to 6.4 by morning. Recommend repeat CBC and CMP in 1 week Hypertension Hyperlipidemia CAD -Continue metoprolol 25 mg daily, losartan 50 mg daily, Plavix 75 mg daily, Lipitor 20 mg daily, aspirin 81 mg daily Exam Data for Last 24 hours Vital signs and Labs for Last 24 Hours: Temp Pulse Resp BP Pulse Ox O2 Del Method O2 Flow Rate 97.8 F 87 19 160/94 H 92 L Nasal Cannula 3 07/18/23 07:43 07/18/23 11:01 07/18/23 07:43 07/18/23 07:43 07/18/23 07:43 07/18/23 07:43 07/18/23 07:43 FiO2 40 07/17/23 09:28 Laboratory Results - last 24 hr 07/17/23 13:55: Chlamy pneumoniae PCR TNP, Adenovirus (PCR) Not detected, B. pertussis DNA (PCR) TNP, Coronavirus OC43 (PCR) Not detected, Coronavirus HKU1 (PCR) Not detected, Coronavirus 229E (PCR) Not detected, SARS-CoV-2 (PCR) Not detected, Coronavirus NL63 (PCR) Not detected, Human Metapneumovir PCR Not detected, Influenza A (H
--- NOTE | 2023-07-18 12:10 | HMH.PHAINT1 ---
Pharmacy Intervention Comments: DISCHARGE MEDICATION COUNSELING PROVIDED. DISCUSSED STARTING THE FOLLOWING: -CEFDINIR (ANTIBIOTIC, TWICE DAILY, TAKE WITH FOOD, N/V/D POSSIBLE) -PREDNISONE (STEROID, DAILY, TAKE WITH FOOD IN THE MORNING, INSOMNIA, N/V/D POSSIBLE) -LORAZEPAM (TWICE DAILY NEEDED FOR ANXIETY, DIZZINESS, LIGHTHEADEDNESS, DROWSINESS, DECREASED RESPIRATIONS POSSIBLE) PATIENT VERBALIZED NO QUESTIONS AT THIS TIME.
--- NOTE | 2023-07-19 15:52 | CARE MANAGER ---
Called and spoke with patient regarding recent discharge. Patient stated that she is doing well, has started new medication prescribed at discharge. Patient plans to call and schedule her f/u appts. No questions or concerns at time of call.
== END 2023-07-18 13:06 | disposition home or self-care (01) ==
LOC: ER 08:34 → 2ND 11:51
PROVIDERS: Admitting Provider Internal Medicine Adolescent Medicine; Emergency Provider Emergency Medicine; PCP Internal Medicine Adolescent Medicine; Visit Provider Internal Medicine Adolescent Medicine
DX: J44.1 Chronic obstructive pulmonary disease with (acute) exacerbation (principal); J96.21 Acute and chronic respiratory failure with hypoxia; Z99.81 Dependence on supplemental oxygen; I25.10 Atherosclerotic heart disease of native coronary artery without angina pectoris; I10 Essential (primary) hypertension; Z87.891 Personal history of nicotine dependence; Z79.01 Long term (current) use of anticoagulants; Z79.899 Other long term (current) drug therapy; Z95.5 Presence of coronary angioplasty implant and graft; R06.9 Unspecified abnormalities of breathing
CPT/HCPCS: 71045; 80053; 82803; 83735; 83880; 84484; 85007; 85025; 87632; 87635; 93005; 94640; 99291; G0378; J0696; J3475

== ENCOUNTER → 2023-07-26 11:51 | Outpatient (CLI) | payer MEDICARE, OTHER, SELFPAY ==
[2023-07-26 12:44] LABS: Basophils # 0.1 K/mm3 (0-0.2); Basophils % 0.7 % (0.1-2.0); Eosinophils # 0.4 K/mm3 (0.0-0.4); Eosinophils % 4.3 % (0.1-12.0); Hematocrit 40.5 % (37.0-47.0); Mean Corpuscular HGB Conc 32.1 g/dL (31.8-35.4); Mean Corpuscular Volume 99.8 fl (81-99); Mean Platelet Volume 7.7 fl (7.4-10.4); Monocytes # 0.5 K/mm3 (0.1-1.0); Monocytes % 5.7 % (1.7-9.3); Neutrophils % 67.3 % (37.0-80.0); Platelet Count 226 K/mm3 (142-424); Red Blood Count 4.06 M/mm3 (4.20-5.40); Red Cell Distribution Width 12.4 % (11.5-17.5); White Blood Count 8.9 K/mm3 (4.8-10.8)
[2023-07-26 13:14] LABS: Chloride 91 mmol/L (98-107); Potassium 4.3 mmoL/L (3.5-5.1); Sodium 136 mmol/L (136-145)
[2023-07-26 13:17] LABS: Anion Gap 10.3 mEq/L (5-15); Blood Urea Nitrogen 23 mg/dl (7-17); Calcium 9.6 mg/dl (8.4-10.2); Carbon Dioxide 39 mmol/L (22.0-30.0); Estimated Glomerular Filt Rate 97 ml/min (>60); GFR (African American) 118 ML/MIN (>60); Glucose 90 mg/dl (74-100)
== END ==
PROVIDERS: PCP Internal Medicine Adolescent Medicine; Visit Provider Nurse Practitioner Family
DX: J44.1 Chronic obstructive pulmonary disease with (acute) exacerbation (principal)
CPT/HCPCS: 36415; 80048; 85025

== ENCOUNTER → 2023-08-20 09:54 | Outpatient (CLI) | payer MEDICARE, OTHER, SELFPAY ==
[2023-08-20 10:41] LABS: Blood Urea Nitrogen 21 mg/dl (7-17); Estimated Glomerular Filt Rate 70 ml/min (>60); GFR (African American) 84 ML/MIN (>60)
== END ==
LOC: LAB 09:56
PROVIDERS: PCP Internal Medicine Adolescent Medicine; Visit Provider Nurse Practitioner Family
DX: Z01.812 Encounter for preprocedural laboratory examination (principal)
CPT/HCPCS: 36415; 82565; 84520

== ENCOUNTER 2023-08-25 09:48 | Outpatient (CLI) | payer MEDICARE, OTHER, SELFPAY | END 2023-08-25 23:59 | LOC: RAD 09:49 | PROVIDERS: PCP Internal Medicine Adolescent Medicine; Visit Provider Nurse Practitioner Family | DX: I42.1 Obstructive hypertrophic cardiomyopathy (principal); R93.1 Abnormal findings on diagnostic imaging of heart and coronary circulation ==

== ENCOUNTER 2023-09-23 09:45 | Outpatient (CLI) | payer MEDICARE, OTHER, SELFPAY ==
[2023-09-23 10:15] VITALS: PULSE 78; PULSE 79
[2023-09-23] MEDS: ALBUTEROL 0.083% 2.5 MG/3 ML NEB IH (10:15)
== END 2023-09-23 23:59 ==
LOC: RT 09:45
PROVIDERS: PCP Internal Medicine Adolescent Medicine; Visit Provider Internal Medicine Pulmonary Disease
DX: R06.09 Other forms of dyspnea
CPT/HCPCS: 94060; 94618; 94640

== ENCOUNTER 2024-03-17 08:54 | Outpatient (CLI) | payer MEDICARE, OTHER, SELFPAY ==
--- NOTE | 2024-03-17 08:58 | XR_ITS ---
FINAL REPORT CLINICAL HISTORY: SCREENING COMPARISON: 07/27/2022 FINDINGS: Using L1-4, the bone mineral density of the spine is 0.963 g/cm2, corresponding to T-score of -0.8 which is within normal limits. Previously was 0.966 with a T-score of -0.7. Using the left hip, the bone mineral density of the femoral neck is 0.560 g/cm2, corresponding to a T-score of -2.6 which is consistent with osteoporosis. Previously was 0.619 with T-score of -2.6. Using the right hip, the bone mineral density of the femoral neck is 0.527 g/cm2, corresponding to a T-score of -2.9 which is consistent with osteoporosis. Previously was 0.616 with T-score of -2.7. FRAX not reported because the patient is being treated for osteoporosis. NOTE: T-score: Standard deviation compared with peak bone mass of young adult mean. *Following the recommendations of the International Society of Bone densitometry, classification of hip BMD is based on the lower of two T-scores; total hip or femoral neck. IMPRESSION: Diminished bone mineral density consistent with osteoporosis with no significant interval bone loss. Reviewed, Interpreted and Dictated by Gene Mesa MD Transcribed by Larisa Tyler Authenticated and . [facility]
== END 2024-03-17 23:59 | disposition home or self-care (01) ==
LOC: RAD 08:55
PROVIDERS: PCP Nurse Practitioner Family; Visit Provider Nurse Practitioner Family
DX: M81.0 Age-related osteoporosis without current pathological fracture (principal)
CPT/HCPCS: 77080

== ENCOUNTER 2024-05-23 08:37 | Inpatient (IN) | payer MEDICARE, OTHER, SELFPAY ==
[2024-05-23] VITALS (53 sets, daily range): BP systolic 93–154; BP diastolic 55–95; PULSE 61–91; RESP 10–22; TEMP 33.1–37.2; O2SAT 23–100; BMI 16.7
--- NOTE | 2024-05-23 08:53 | XR_ITS ---
FINAL REPORT CLINICAL HISTORY: tube placement COMPARISON: 07/18/2023 FINDINGS: SINGLE-VIEW CHEST The heart size is normal. The mediastinum is normal. Patient has been intubated. Endotracheal tube tip is approximately 5 cm superior to the reginald. Chronic changes are seen in both lungs. Interstitial opacity in the lung bases is less evident than prior, probably due to resolved edema. There is no pneumothorax. IMPRESSION: Endotracheal tube as above. Interstitial opacity is less evident than previous, probably due to resolved edema. Reviewed, Interpreted and Dictated by Enzo Harrell MD Transcribed by Nita Nichols Authenticated and [facility]
--- NOTE | 2024-05-23 08:58 | CT_ITS ---
FINAL REPORT TECHNIQUE: NASCET technique utilized for stenosis evaluation. This study was performed with techniques to keep radiation doses as low as reasonably achievable (ALARA). Individualized dose reduction techniques using automated exposure control or adjustment of mA and/or kV according to the patient's size were employed. CLINICAL HISTORY: found down copd FINDINGS: The patient has been intubated. RIGHT CAROTID: No significant stenosis is seen of the cervical common or internal carotid artery. There is vascular calcification at the carotid bifurcation. LEFT CAROTID: No significant stenosis seen of the cervical common or internal carotid artery. There is vascular calcification at the carotid bifurcation. VERTEBRALS: The left vertebral artery is dominant. The right vertebral artery is diminutive. No significant stenosis is present. IMPRESSION: No significant arterial abnormality. Reviewed, Interpreted and Dictated by Enzo Harrell MD Transcribed by Nita Nichols Authenticated and . [facility]
--- NOTE | 2024-05-23 08:58 | CT_ITS ---
FINAL REPORT TECHNIQUE: thin section axial CT with and without IV contrast supplemented with multiplanar 3-D reconstruction of the head. This study was performed with techniques to keep radiation doses as low as reasonably achievable, (ALARA)individualized dose reduction techniques using automated exposure control or adjustment of mA and/or kV according to the patient's size were employed. NASCET technique utilized for stenosis evaluation. CLINICAL HISTORY: found down copd FINDINGS: HEAD CT: There is moderate diffuse cortical atrophy and proportional ventriculomegaly. There is patchy but confluent decreased attenuation throughout the deep white matter bilaterally. 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 There is no evidence of acute hemorrhage, mass effect, or edema. There is a small retention cyst or polyp in the left maxillary sinus. CTA: The cranial circulation is unremarkable. There is no significant stenosis, aneurysm or occlusion. IMPRESSION: Chronic appearing findings without acute intracranial abnormality. No significant stenosis or major branch occlusion. Reviewed, Interpreted and Dictated by Enzo Harrell MD Transcribed by Nita Nichols Authenticated and . [facility]
--- NOTE | 2024-05-23 08:58 | CT_ITS ---
FINAL REPORT TECHNIQUE: After the administration of intravenous contrast, axial images were obtained through the abdomen and pelvis by computed tomography. The study was performed with techniques to keep radiation dose as low as reasonably achievable, (ALARA). Individual dose reduction techniques using automated exposure control or adjustment of mA and/or kV according to the patient's size were employed. CLINICAL HISTORY: found down copd FINDINGS: Abdomen: The liver parenchyma is homogeneous. The gallbladder is absent. The spleen and pancreas are unremarkable. There is bilateral adrenal gland hyperplasia. There is a benign-appearing cyst in the left kidney. The right kidney is unremarkable. The aorta is normal in caliber. There is no free fluid or adenopathy. Pelvis: The appendix is not identified. There is a large amount of retained stool throughout the colon. Barahona balloon catheter is seen in a decompressed urinary bladder. There is no free fluid or adenopathy. IMPRESSION: Bilateral adrenal gland hyperplasia. Reviewed, Interpreted and Dictated by Enzo Harrell MD Transcribed by Nita Nichols Authenticated and [facility]
--- NOTE | 2024-05-23 08:58 | CT_ITS ---
FINAL REPORT TECHNIQUE: The patient was injected with IV contrast. Axial images were obtained through the chest in a PE protocol. 3-D reconstruction images were also performed. Individualized dose reduction techniques using automated exposure control or adjustment of the MA and/or KV according to patient's size were employed. CLINICAL HISTORY: found down copd COMPARISON: 04/19/2023 FINDINGS: Patient has been intubated. Endotracheal tube is in proper position. Mediastinal vasculature is adequately opacified. No pulmonary artery filling defects are identified to suggest PE. There is no aortic dissection. There is no axillary adenopathy. There is no hilar or mediastinal adenopathy. The heart size is normal. There is no pericardial or pleural effusion. There are advanced changes of centrilobular emphysema. There is scarring at the right apex. No suspicious infiltrate or nodule is identified. IMPRESSION: No pulmonary embolus or dissection. Advanced centrilobular emphysema. Reviewed, Interpreted and Dictated by Enzo Harrell MD Transcribed by Nita Nichols Authenticated and [facility]
--- NOTE | 2024-05-23 09:00 | ECG_ITS ---
APPROVED REPORT Exam: Resting ECG HR:83 bpm ECG Measurements Heart Rate 83 AXES IA 180 P 84 QRSd 84 QRS 67 QT 407 T 46 QTc 447 Conclusion SINUS RHYTHM POSSIBLE LEFT ATRIAL ENLARGEMENT [-0.1mV P-WAVE IN V1/V2] LOW QRS VOLTAGE IN EXTREMITY LEADS [QRS DEFLECTION < 0.5 mV IN LIMB LEADS] SEPTAL MYOCARDIAL INFARCTION , OF INDETERMINATE AGE [40+ ms Q WAVE IN V1/V2] ABNORMAL ECG UNCONFIRMED REPORT Electronically signed by : ALFIE MARTINEZ, 05/24/2024 05:20:00
[2024-05-23 09:06] LABS: Basophils # 0.1 K/mm3 (0-0.2); Basophils % 0.7 % (0.1-2.0); Eosinophils % 0.4 % (0.1-12.0); Hematocrit 39.3 % (37.0-47.0); Hemoglobin 11.7 g/dL (12.2-16.2); Lymphocytes # 0.9 K/mm3 (0.7-4.5); Lymphocytes % 9.9 % (10-50); Mean Corpuscular HGB Conc 29.8 g/dL (31.8-35.4); Mean Corpuscular Volume 110.9 fl (81-99); Mean Platelet Volume 8.4 fl (7.4-10.4); Monocytes # 0.6 K/mm3 (0.1-1.0); Monocytes % 6.9 % (1.7-9.3); Neutrophils # 7.6 K/mm3 (1.8-7.8); Neutrophils % 82.2 % (37.0-80.0); Platelet Count 302 K/mm3 (142-424); Red Blood Count 3.55 M/mm3 (4.20-5.40); Red Cell Distribution Width 13.4 % (11.5-17.5); White Blood Count 9.2 K/mm3 (4.8-10.8)
[2024-05-23] MEDS: MAGNESIUM SULFATE IN WATER 2 GM/50 ML PIGGYBACK IV (09:09)
[2024-05-23] MEDS: METHYLPREDNISOLONE SOD SUCC 125MG VIAL 125 MG IV (09:09)
[2024-05-23 09:15] LABS: Chloride 95 mmol/L (98-107)
[2024-05-23] MEDS: IPRATROPIUM/ALBUTEROL 3 ML NEB IH ×3 (09:15→23:32)
[2024-05-23 09:16] LABS: Potassium 5.7 mmoL/L (3.5-5.1); Sodium 141 mmol/L (136-145)
[2024-05-23 09:18] LABS: Blood Urea Nitrogen 28 mg/dl (7-17); Creatinine Clearance Estimated 29 mL/min (50-200); Estimated Glomerular Filt Rate 81 ml/min (>60); GFR (African American) 98 ML/MIN (>60)
[2024-05-23 09:19] LABS: Alanine Aminotransferase 175 U/L (12-78); Albumin/Globulin Ratio 1.5 (1.1-1.8); Alkaline Phosphatase 94 U/L (38-126); Anion Gap 26.7 mEq/L (5-15); Aspartate Amino Transferase 230 U/L (14-36); Bilirubin,Total 1.3 mg/dl (0.2-1.3); Calcium 9.1 mg/dl (8.4-10.2); Carbon Dioxide 25 mmol/L (22.0-30.0); Globulin 2.6 g/dL (1.3-3.2); Glucose 57 mg/dl (74-100); Lipase 89 U/L (23-300); Magnesium 1.5 mg/dl (1.6-2.3); Total Protein,Serum 6.6 g/dl (6.3-8.2)
[2024-05-23] MEDS: VANCOMYCIN CONSULT REQUEST 1 EACH NOTAPPLIC (09:27)
--- NOTE | 2024-05-23 09:33 | PC.NURSE ---
Troponin of 0.[address] Stephen.
[2024-05-23 09:41] LABS: NT Pro Brain Natriuretic Pep. 15200 pg/mL (0-450)
--- NOTE | 2024-05-23 09:41 | ED_ITS ---
Discharge Plan Disposition Chief Complaint: Altered Mental Status Prescriptions Prescriptions: No Action cholecalciferol (vitamin D3) 1,250 mcg (50,000 unit) tablet 1,250 mcg PO WEEKLY fluticasone propionate [Flonase Allergy Relief] 50 mcg/actuation spray,suspension 1 spray intranasal DAILY 90 Days Qty: 16 3RF Rx Instructions: administer into each nostril losartan 50 mg tablet 50 mg PO DAILY alendronate 70 mg tablet 70 mg PO WEEKLY Incruse Ellipta 62.5 mcg/actuation blister with device 1 inh inhalation DAILY 90 Days Qty: 90 3RF atorvastatin 20 mg tablet 20 mg PO DAILY Qty: 30 5RF clopidogrel [Plavix] 75 mg tablet 75 mg PO DAILY Qty: 30 5RF metoprolol succinate 25 mg tablet extended release 24 hr 25 mg PO DAILY Qty: 90 1RF ipratropium-albuterol 0.5 mg-3 mg(2.5 mg base)/3 mL solution for nebulization 3 ml IH QIDP PRN (Reason: shortness of breath or wheezing) fluticasone propion-salmeterol [Advair Diskus] 500-50 mcg/dose blister with device 1 inh IH BIDRT aspirin 81 mg tablet,chewable 81 mg PO DAILY albuterol sulfate 90 mcg/actuation HFA aerosol inhaler 2 inh IH QIDP PRN (Reason: shortness of breath or wheezing) lorazepam 0.5 mg Tablet 0.25 mg PO BIDP PRN (Reason: Anxiety) 3 Days Qty: 3 0RF Referrals Follow up/Referrals: Provider,Referral, MD [Primary Care Provider] - See instructions Clinical Impressions Clinical Impression: Acidosis, lactic, COPD exacerbation, Acute and chronic respiratory failure with hypoxia, Hyperkalemia, Adrenal hyperplasia, Non-ST elevation SC (NSTEMI), Hypertrophic cardiomyopathy, Transaminitis Instructions Patient Instructions: DI for Altered Mental Status Print Language Print Language: Slovenian Discharge ED Provider: Efrain Stephen General Adult HPI General Chief complaint: Altered Mental Status Stated complaint: very non responsive cold to touch Time Seen by Provider: 05/23/24 08:40 Mode of Arrival: Wheelchair Source of Information: Relative Limitations: Altered Mental Status Description of Symptoms (Recalled from ER Triage Doc. by RN): pt was brought in by wheelchair due to being less responsive,pale, and cold @ home. pt noted to have slow respirations. unresponsive, fsbs 60 History of Present Illness HPI narrative: Patient is a 78-year-old female with history of hypertrophic cardiomyopathy without definitive diagnosis of outflow obstruction, hypertension, COPD on 3.5 L at home who presents to the emergency department after being found down. Last night in the evening between 9 and 10 PM patient was at her her baseline which is able to complete activities of daily living with difficulty on her home oxygen but is largely bedbound. Her daughter works manager [employer] and found her curled up in a position minimally responsive at home. Brief discussion was had as to the patient's wishes and per and daughter we will proceed with full code at this time. Related Data Home Medications ?Medication ?Instructions ?Recorded ?Confirmed alendronate 70 mg tablet 70 mg PO WEEKLY Oseoporosis 03/18/22 01/04/24 losartan 50 mg tablet 50 mg PO DAILY High Blood Pressure 03/18/22 01/04/24 cholecalciferol (vitamin D3) 1,250 1,250 mcg PO WEEKLY Supplement 08/05/22 01/04/24 mcg (50,000 unit) tablet albuterol sulfate 90 mcg/actuation 2 inh inhalation QIDP PRN 07/17/23 01/04/24 aerosol inhaler shortness of breath or wheezing aspirin 81 mg chewable tablet 81 mg PO DAILY Heart Disease 07/17/23 01/04/24 fluticasone 500 mcg-salmeterol 50 1 inh inhalation BIDRT Copd 07/17/23 01/04/24 mcg/dose blistr powdr for inhalation (Advair Diskus) ipratropium 0.5 mg-albuterol 3 mg 3 ml inhalation QIDP PRN shortness 07/17/23 01/04/24 (2.5 mg base)/3 mL nebulization of breath or wheezing soln Previous Rx's ?Medication ?Instructions ?Recorded lorazepam 0.5 mg tablet 0.25 mg (1/2 x 0.5 mg) PO BIDP PRN 07/18/23 Anxiety 3 days #3 tabs umeclidinium 62.5 mcg/actuation 1 inh inhalation DAILY 90 days #90 10/27/23 blister powder for inhalation ea (Incruse Ellipta) fluticasone propionate 50 1 spray intranasal DAILY 90 days 01/04/24 mcg/actuation nasal #16 grams spray,suspension (Flonase Allergy Relief) atorvastatin 20 mg tablet 20 mg PO DAILY Cholesterol #30 tabs 01/19/24 clopidogrel 75 mg tablet (Plavix) 75 mg PO DAILY Blood Thinner #30 03/20/24 tabs metoprolol succinate 25 mg 25 mg PO DAILY High Blood Pressure 05/18/24 tablet,extended release 24 hr #90 tabs Allergies Allergy/AdvReac Type Severity Reaction Status Date / Time No Known Allergies Allergy Verified 01/04/24 14:35 ROS Obtained: Yes unobtainable due to mental status Physical Exam General General appearance: lethargic Head Head exam: atraumatic Eye Eye exam: Present PERRL ENT ENT exam: Present other (Dentures in place) Respiratory Respiratory exam: Present other (Minimal air movement with wheezing in all lung castro, bradypnic) Cardiovascular Cardiovascular exam: Present regular rate and normal rhythm Abdominal Exam Abdominal exam: Present soft; Absent distention or tenderness Extremities Exam Extremities exam: Present other (1+ edema around the ankles) Neurological Exam Neurological exam: Present other (GCS 3 the majority of the time not responding to noxious stimuli with intermittent nonsensical movement throughout my examination of all extremities) Medical Decision Making Medical Records Screening: Per USPSTF and CDC recommendations, given the prevalence of disease in our region, it is our hospital?s policy to screen for HIV and viral Hepatitis for all patients aged 18 and over and those with ongoing risk factors. Moe Inquiry Pt receiving controlled substance: No Vital Signs: 05/23/24 08:39 05/23/24 08:55 05/23/24 09:33 Temperature 91.6 F L 95.0 F L Temperature Source Core Pulse Rate 91 H Pulse Rate [Right] 86 Respiratory Rate 10 L 18 18 Blood Pressure 109/79 L Blood Pressure [Right Arm] 133/70 Blood Pressure Mean Blood Pressure Mean [Right Arm] 91 02 Sat by Pulse Oximetry 23 L 94 L Oxygen Delivery Method Nasal Cannula Mechanical Ventilation 05/23/24 09:34 05/23/24 09:35 05/23/24 09:38 Temperature 95.0 F L 95.2 F L 95.2 F L Temperature Source Pulse Rate Pulse Rate [Right] Respiratory Rate 18 18 18 Blood Pressure 121/70 118/84 145/89 H Blood Pressure [Right Arm] Blood Pressure Mean Blood Pressure Mean [Right Arm] 02 Sat by Pulse Oximetry Oxygen Delivery Method Mechanical Ventilation Mechanical Ventilation 05/23/24 09:40 05/23/24 10:06 05/23/24 10:11 Temperature 95.2 F L 95.0 F L 95.0 F L Temperature Source Pulse Rate 72 Pulse Rate [Right] Respiratory Rate 18 18 17 Blood Pressure 131/81 120/64 152/80 H Blood Pressure [Right Arm] Blood Pressure Mean 82 104 Blood Pressure Mean [Right Arm] 02 Sat by Pulse Oximetry 63 L 68 L Oxygen Delivery Method Mechanical Ventilation Mechanical Ventilation 05/23/24 10:16 05/23/24 10:21 05/23/24 10:23 Temperature 95.0 F L 95.2 F L Temperature Source Pulse Rate 61 77 77 Pulse Rate [Right] Respiratory Rate 18 18 Blood Pressure 129/89 132/87 Blood Pressure [Right Arm] Blood Pressure Mean 107 102 Blood Pressure Mean [Right Arm] 02 Sat by Pulse Oximetry 66 L 92 L Oxygen Delivery Method Mechanical Ventilation Mechanical Ventilation 05/23/24 10:23 05/23/24 10:27 05/23/24 11:30 Temperature 96.6 F L Temperature Source Pulse Rate 75 75 Pulse Rate [Right] Respiratory Rate 18 Blood Pressure 93/55 L Blood Pressure [Right Arm] Blood Pressure Mean Blood Pressure Mean [Right Arm] 02 Sat by Pulse Oximetry 94 L Oxygen Delivery Method Mechanical Ventilation Mechanical Ventilation 05/23/24 11:45 05/23/24 12:00 05/23/24 12:15 Temperature 97.0 F L 97.3 F L 97.7 F Temperature Source Pulse Rate 76 77 79 Pulse Rate [Right] Respiratory Rate 18 18 18 Blood Pressure Blood Pressure [Right Arm] Blood Pressure Mean Blood Pressure Mean [Right Arm] 02 Sat by Pulse Oximetry 94 L 94 L 95 Oxygen Delivery Method Mechanical Ventilation Mechanical Ventilation Mechanical Ventilation 05/23/24 12:21 05/23/24 12:25 05/23/24 12:30 Temperature 97.9 F 98.1 F 98.1 F Temperature Source Pulse Rate 78 Pulse Rate [Right] Respiratory Rate 18 18 18 Blood Pressure 96/64 L 120/74 109/71 L Blood Pressure [Right Arm] Blood Pressure Mean Blood Pressure Mean [Right Arm] 02 Sat by Pulse Oximetry 96 Oxygen Delivery Method Mechanical Ventilation 05/23/24 12:35 05/23/24 12:40 05/23/24 12:45 Temperature 97.9 F 97.9 F 97.9 F Temperature Source Pulse Rate 74 Pulse Rate [Right] Respiratory Rate 18 18 18 Blood Pressure 119/78 119/76 119/77 Blood Pressure [Right Arm] Blood Pressure Mean Blood Pressure Mean [Right Arm] 02 Sat by Pulse Oximetry 96 96 Oxygen Delivery Method Mechanical Ventilation Mechanical Ventilation 05/23/24 12:50 Temperature 97.9 F Temperature Source Pulse Rate 75 Pulse Rate [Right] Respiratory Rate 18 Blood Pressure 117/80 Blood Pressure [Right Arm] Blood Pressure Mean Blood Pressure Mean [Right Arm] 02 Sat by Pulse Oximetry 97 Oxygen Delivery Method Mechanical Ventilation Lab Data Lab Results 05/23/24 08:57: WBC 9.2, RBC 3.55 L, Hgb 11.7 L, Hct 39.3, MCV 110.9 H, MCH 33.0 H, MCHC 29.8 L, RDW 13.4, Plt Count 302, MPV 8.4, Neut % (Auto) 82.2 H, Lymph % (Auto) 9.9 L, Evans % (Auto) 6.9, Eos % (Auto) 0.4, Baso % (Auto) 0.7, Neut # (Auto) 7.6, Lymph # (Auto) 0.9, Evans # (Auto) 0.6, Eos # (Auto) 0.0, Baso # (Auto) 0.1, Sodium 141, Potassium 5.7 H, Chloride 95 L, Carbon Dioxide 25, Anion Gap 26.7 H, BUN 28 H, Creatinine 0.70, Estimated Creat Clear 29, Estimated GFR 81, Est GFR ( Amer) 98, Glucose 57 L, Calcium 9.1, Magnesium 1.5 L, Total Bilirubin 1.3, AST 230 H, ALT 175 H, Alkaline Phosphatase 94, Total Creatine Kinase 85, Troponin I 0.20 H, NT-Pro-B Natriuret Pep 50437 H, Total Protein 6.6, Albumin 4.0, Globulin 2.6, Albumin/Globulin Ratio 1.5, Lipase 89, Salicylates < 1.0 L, Acetaminophen < 10 L, Plasma/Serum Alcohol < 10 05/23/24 09:11: Urine Color Yellow, Urine Appearance Clear, Urine pH 6.0, Ur Specific [place] >= 1.030, Urine Protein 1+ A, Urine Glucose (UA) Negative, Urine Ketones Negative, Urine Blood Negative, Urine Nitrate Negative, Urine Bilirubin 1+ A, Urine Urobilinogen 4.0, Ur Leukocyte Esterase Negative, Urine RBC Occasional, Urine WBC Occasional, Ur Squamous Epith Cells Occasional, Urine Bacteria None, Urine Opiates Screen Negative, Urine Methadone Screen Negative, Ur Barbituates Screen Negative, Ur Phencyclidine Scrn Negative, Ur Amphetamines Screen Negative, U Benzodiazepines Scrn Negative, Urine Cocaine Screen Negative, U Marijuana (THC) Screen Negative 05/23/24 09:42: Specimen Source [place], O2 % 100%, ABG pH 7.28 L, ABG pCO2 47.3 H, ABG pO2 67.0 L, ABG HCO3 21.5 L, ABG Total CO2 22.9 L, ABG O2 Saturation 89 L , ABG Base Excess -5.3 L, ABG Sodium 138, ABG Potassium 4.6, ABG Chloride 99, A BG Lactate 8.5 H, Vent Rate 18, Tidal Volume 320, PEEP 5, Arterial Blood Potassium 4.6, Arterial Blood Chloride 99 05/23/24 11:10: HIV 1&2 Antibody Rapid Nonreactive 05/23/24 11:25: Specimen Source [place], O2 % 100, ABG pH 7.31 L, ABG pCO2 47.4 H, ABG pO2 70.6 L, ABG HCO3 23.4, ABG Total CO2 24.9, ABG O2 Saturation 92, ABG Base Excess -2.8 L, ABG Lactate 4.3 H, Vent Rate 18, Tidal Volume 320, PEEP 10 05/23/24 : TSH 0.25 L, Thyroxine (T4) 11.1 H 05/23/24 08:57 05/23/24 08:57 Orders (Tests/Meds): ED MEDICATIONS Generic Name Dose Route Start Last Admin Trade Name Freq PRN Reason Stop Dose Admin Lactated Ringer's 1,000 mls @ 75 mls/hr 05/23/24 12:00 Lactated Ringer's 1000 Ml Bag IV 06/22/24 11:59 .[id number] LAINE Miscellaneous 1 each 05/23/24 09:00 05/23/24 09:27 Vancomycin Consult Request NOTAPPLIC 06/22/24 08:59 1 each CONSULT PHARMACY LAINE Administration Discontinued Medications Generic Name Dose Route Start Last Admin Trade Name Freq PRN Reason Stop Dose Admin Albuterol/Ipratropium 3 ml 05/23/24 08:59 10/01/24 09:15 Ipratropium/Albuterol 3 Ml Neb IH 05/23/24 09:00 3 ml ONCE ONE Administration Magnesium Sulfate 2 gm in 50 mls @ 50 mls/hr 05/23/24 08:59 05/23/24 09:09 Magnesium Sulfate 2gm/50ml Premix IV 05/23/24 09:58 50 mls/hr ONCE ONE Administration Piperacillin Sod/Tazobactam 100 mls @ 200 mls/hr 05/23/24 09:01 05/23/24 11:14 Sod 4.5 gm/ Sodium Chloride IV 05/23/24 09:30 200 mls/hr ONCE ONE Administration Vancomycin HCl 750 mg/ Sodium 250 mls @ 125 mls/hr 05/23/24 09:30 05/23/24 13:18 Chloride IV 05/23/24 11:29 125 mls/hr ONCE ONE Administration Lactated Ringer's 500 mls @ 999 mls/hr 05/23/24 12:15 05/23/24 12:15 Lactated Ringer's 500ml IV 05/23/24 12:45 999 mls/hr .Q31M ONE Administration Iopamidol 100 ml 05/23/24 09:52 05/23/24 09:53 Iopamidol-370 (76%);100ml Bottle IV 05/23/24 09:53 100 ml ONCE ONE Administration Methylprednisolone Sodium Succinate 125 mg 05/23/24 08:59 05/23/24 09:09 Methylprednisolone Sod Succ 125mg Vial IV 05/23/24 09:00 125 mg ONCE ONE Administration Sodium Chloride 10 ml 05/23/24 09:52 05/23/24 09:53 Sodium Chloride 0.9% 10ml Syr (Rad Only) IV 05/23/24 09:53 10 ml ONCE ONE Administration Sodium Chloride 50 ml 05/23/24 09:52 05/23/24 09:53 0.9 % Sodium Chloride 50 Ml Vial IV 05/23/24 09:53 50 ml ONCE ONE Administration ORDERS Category Date Time Status CT abdomen pelvis w con Stat Cat Scan 05/23/24 08:[address] angio chest - dissection Stat Cat Scan 05/23/24 08:[address] angio neck Stat Cat Scan 05/23/24 08:58 Completed Cardiology Consult [Consult to Cardiology] [CONS] Cons 05/23/24 11:09 Active Routine Pulmonology Consult [Consult to Pulmonology] [CONS] Cons 05/23/24 12:[address] angio head with & w/o Stat Exams 05/23/24 08:58 Completed Chest XR -- portable [XR chest portable] Stat Exams 05/23/24 08:53 Completed POCUS Point of Care (ER Only) Stat Exams 05/23/24 08:58 Completed Acetaminophen Stat Lab 05/23/24 08:57 Completed BNP [NT Pro Brain Natriuretic Pep.] Stat Lab 05/23/24 08:57 Completed CBC w/Auto Diff [Complete Blood Count Auto Diff] Stat Lab 05/23/24 08:57 Completed CMP [Comprehensive Metabolic Panel] Stat Lab 05/23/24 08:57 Completed Creatine Kinase Stat Lab 05/23/24 08:57 Completed Drug Screen,Urine Stat Lab 05/23/24 09:11 Completed Ethanol [Ethyl Alcohol] Stat Lab 05/23/24 08:57 Completed HIV (1&2) Antibody Rapid Stat Lab 05/23/24 11:10 Completed Hep C Ab with Reflex to RNA Stat Lab 05/23/24 09:13 Ordered Lipase Stat Lab 05/23/24 08:57 Completed MG [Magnesium] Stat Lab 05/23/24 08:57 Completed Salicylate Stat Lab 05/23/24 08:57 Completed T4 (Thyroxine) Stat Lab 05/23/24 Completed TSH [Thyroid Stimulating Hormone] Stat Lab 05/23/24 Completed Trop I [Troponin I] Stat Lab 05/23/24 08:57 Completed Troponin I Q3H Lab 05/23/24 15:00 Ordered Troponin I Routine Lab 05/23/24 Received UA [Urinalysis and Microscopic] Stat Lab 05/23/24 09:11 Completed Blood Culture Stat Micro 05/23/24 Received Sputum Culture & Gram Stain Stat Micro 05/23/24 09:05 Received ABG [Arterial Blood Gas] Stat RT 05/23/24 09:42 Results ABG [Arterial Blood Gas] Stat RT 05/23/24 11:25 Completed Electrolytes Arterial Stat RT 05/23/24 09:42 Results Lactate Arterial Stat RT 05/23/24 09:42 Results Lactate Arterial Stat RT 05/23/24 11:25 Completed CA echo doppler complete Stat Y 05/23/24 11:36 Ordered ECG Data Tracing #1: Independently interpreted by me rate is 83, rhythm is regular, axis is normal, no ST elevation in anatomical contiguous leads, QTc 447. Tracing #2: Independently interpreted by me rate of 77, rhythm is regular, no ST elevation in anatomical contiguous leads, QTc 464 Medical Decision Narrative: In summary patient is 78-year-old female past medical history described above who presents emergency department for being found down. Patient is hypotensive upon arrival, hypothermic, borderline silent chest with extremely low ventilation on auscultation. Passive rewarming will be initiated. Fingerstick blood glucose borderline acceptable at 60. Patient underwent [id number] while set up for intubation with rocuronium and etomidate which was successfully completed with 1 attempt. EKG at bedside shows no ST elevation in anatomical contiguous leads, no dysrhythmia currently. Differential includes severe CO2 narcosis with COPD exacerbation, NSTEMI, sepsis, among others. Workup will be conducted with broad hematologic labs, 1 L crystalloid will be administered, [id number] ultrasound at bedside shows lung sliding, very thickened left ventricle with decreased ejection fraction. Chest x-ray shows both lungs are up. Broad-spectrum antibiotics will be initiated with vancomycin and Zosyn after blood cultures were obtained. Left brachial vein 18-gauge IV was placed due to difficulty obtaining IV access and need for large-bore IV. Left radial A-line placed with success. Patient will undergo CT imaging of the head, neck, thorax. Upon further family discussion at bedside it is unknown exactly how many hours she was down and giving her significant hypoxia in the 20s upon arrival neuro prognostication in my opinion is very poor. Due to this at bedside wishes to continue ventilation at this time however does not want CPR or feeding tube as of 10:45 AM. Initial workup reviewed by me, no significant leukocytosis, no actionable anemia, metabolic acidosis with mild hypercapnia, severely elevated lactate 8.5 is being volume resuscitated, hypomagnesemia which is being repleted, mild hyperkalemia which is not high enough to cause cardiac dysrhythmias and is currently nonactionable, mild transaminitis, initial troponin 0.2 and BNP 15,200. EKG will be repeated. Tissue reperfusion assessment performed approximately 11 AM, delayed capillary refill. Patient's blood pressure is acceptable at this point or additional crystalloid resuscitation in the setting of thickened LVH without definitive diagnosis of HOCM with significantly elevated BNP will be deferred. Cardiology will be consulted at this point for recommendations. Per review of their last note 07-05-2023 patient had normal biventricular function with severely increased LV wall thickness, 1 drug-eluting stent placed to the mid LAD. CTA chest informally visualized by me, no saddle pulmonary embolism, no obvious significant dissection. No large pneumothorax, significant pulmonary disease. Repeat VBG shows improving acid-base status. Maintenance fluids will be initiated. Upon repeat evaluation mean arterial pressure is downtrending, 500 cc of Ringer's will be bolused. CT imaging formally reviewed, no acute intracranial abnormality, no major branch occlusion, no significant stenosis. Neck CTA nonactionable. Chest CTA advanced emphysema, no PE or dissection. Abdomen pelvis CT no acute findings, bilateral adrenal gland hyperplasia. Coingestants with salicylates and Tylenol level, UDS, ethanol level, TSH and free T4 will be added on. My current suspicion is that patient had cardiac dysrhythmia with resultant hypoxia with prolonged downtime. Patient is volume responsive to 500 cc bolus of lactated Ringer's. At this time she has received 38 cc /kg crystalloid resuscitation and further blood pressure support will need to be conducted with vasopressor should fall again. Repeat physical exam conducted approximately 12:35 PM. Patient reacts to confrontation of her eyes, winces to pain but does not have any meaningful movement of any extremity, does gag with her endotracheal tube. In my opinion her prognosis is still poor however true neuro prognostication cannot be conducted at this time. The case was discussed with hospital medicine at length regarding management and patient will be admitted to their service for continued evaluation at this time. Procedure: Procedure performed was left radial A-line. Procedure performed by Efrain Stepehn. Indication was hypotension and need for continuous blood pressure monitoring. 20-gauge left radial A-line was placed, number of attempts was 1. It was sutured in place with nonabsorbable suture. It was secured in place with dressing. Images were not saved to apartment archive. There were no immediate complications. Procedure: Procedure performed was ultrasound-guided IV. Procedure performed by Efrain Stephen. Using real-time ultrasound the left brachial vein was identified and an 18-gauge long peripheral IV catheter was placed with success. Vessel cannula was patent. Images were not saved to apartment archive. There were no immediate complications. Procedure: Procedure performed was cardiac ultrasound. Procedure performed by Efrain Stephen. Using real-time ultrasound curvilinear probe with subxiphoid approach apical four-chamber was obtained. Grossly normal ejection fraction, severely thickened left ventricle, no large pericardial effusion. Images were saved to permanent archive. There were no immediate complications. Procedures Intubation Time out performed: No sedative: Etomidate Mg Given: 20 paralytic: Rocuronium Mg Given: 100 Laryngoscope: Gloria ET Tube Size: 7 ET Tube Uncuffed: Yes Tube Secured Depth (cm): 19 Tube Secured Location: other (gum) Tube Placement Confirmation: visualized tube passing through cords, equal breath sounds bilaterally and confirmation by capnometry Patient Tolerated Procedure: no complications Intubation Complications: none Critical Care Critical Care Time Critical Care Time: Yes Attestation: On 05/23/24, the high probability of a clinically significant, sudden or life threatening deterioration of the following system(s) required my full and direct attention, intervention and personal management. The time I documented below is in addition to time spent performing reported procedures but includes the following listed in this critical care notation. Total Time Total Critical Care Time: 80
--- NOTE | 2024-05-23 09:44 | PC.NURSE ---
Patient is gone to CT.
[2024-05-23 09:45] LABS: ABG Base Excess -5.3 mmol/L (-2.4-2.3); ABG HCO3 21.5 mmhg (22.0-26.0); ABG Oxygen Saturation 89 % (90-100); ABG PCO2 47.3 mmhg (35.0-45.0); ABG PH 7.28 mmol/L (7.35-7.45); ABG TCO2 22.9 mmhg (23-27); Chloride, Arterial 99 mmol/L (98-107); Potassium, Arterial 4.6 mmoL/L (3.5-5.1); Sodium Arterial 138 mmol/L (137-145)
[2024-05-23] MEDS: SODIUM CHLORIDE 0.9% 10ML SYR (RAD ONLY) 10 ML IV (09:53)
[2024-05-23] MEDS: 0.9 % SODIUM CHLORIDE 50 ML VIAL IV (09:53)
[2024-05-23] MEDS: IOPAMIDOL-370 (76%);100ML BOTTLE 100 ML IV (09:53)
[2024-05-23 09:54] LABS: Oxygen 100% %; Tidal Volume 320
[2024-05-23 09:55] LABS: Calcium, Arterial 4.5 mg/dL (8.5-10.1); PEEP 5; Source ARTLINE; Vent Rate 18
[2024-05-23 09:56] LABS: Lactate Arterial 8.5 mmol/L (0.4-2.0)
--- NOTE | 2024-05-23 09:58 | PC.NURSE ---
0835 PT PLACED ON ZOLL 0851 ORDERS FOR INTUBATION ETOMIDATE 20 JAH 100 0852 20 TO BILATERAL AC, BLOOD DRAWN 0854, INTUBATION 7.0 ETT, COLOR CHANGE. BILATERAL BREATH SOUNDS, ETT 19 AT THE GUM PT MOVED TO ROOM 2, 0855 TEMP SENSING JOSÉ PLACED UNDER STERILE TECHNIQUE, WARM BLANKETS ON PT, TEMP 95.0 0856 18G IV PLACED VIA US BY DR MATHEWS, LEFT UPPER ARM 0900 ARTERIAL LINE PLACED LEFT WRIST BY DR MATHEWS [address]
--- NOTE | 2024-05-23 10:00 | PC.NURSE ---
Patient is back in room from CT.
--- NOTE | 2024-05-23 10:20 | PC.NURSE ---
DR MATHEWS AT BEDSIDE TO UPDATE FAMILY ON POC
[2024-05-23 10:24] LABS: Creatine Kinase 85 U/L (30-135)
--- NOTE | 2024-05-23 10:30 | PC.NURSE ---
attempted mutiple times to get bc, unable to obtain at this time, lab is aware and will be to collect
--- NOTE | 2024-05-23 11:10 | PC.NURSE ---
MULTIPLE ATTEMPTS TO COLLECT ADDITIONAL BLOOD AND BLOOD CULTURE BY ED RNS AND LAB STAFF. ONE SET OF BLOOD CULTURES COLLECTED. OK'D BY DR MATHEWS TO START IV ABX
[2024-05-23] MEDS: PIPERACILLIN/TAZO 4.5 GM in 0.9 % SODIUM CHLORIDE 100 ML IV (11:14)
--- NOTE | 2024-05-23 11:16 | ECG_ITS ---
APPROVED REPORT Exam: Resting ECG HR:77 bpm ECG Measurements Heart Rate 77 AXES ND 189 P 86 QRSd 87 QRS 79 QT 432 T 41 QTc 464 Conclusion SINUS RHYTHM POSSIBLE LEFT ATRIAL ENLARGEMENT [-0.1mV P-WAVE IN V1/V2] LOW QRS VOLTAGE IN EXTREMITY LEADS [QRS DEFLECTION < 0.5 mV IN LIMB LEADS] MINIMAL ST DEPRESSION [0.025+ mV ST DEPRESSION] PROLONGED QT INTERVAL ABNORMAL ECG UNCONFIRMED REPORT Electronically signed by : ALFIE MARTINEZ, 05/24/2024 05:19:36
[2024-05-23 11:33] LABS: Microscopic, Urine URINE MICROSCOPIC (MICROSCOPIC)
--- NOTE | 2024-05-23 11:33 | PC.NURSE ---
CARDIOLOGY AT BEDSIDE
[2024-05-23 11:36] LABS: ABG Base Excess -2.8 mmol/L (-2.4-2.3); ABG HCO3 23.4 mmhg (22.0-26.0); ABG Oxygen Saturation 92 % (90-100); ABG PCO2 47.4 mmhg (35.0-45.0); ABG PH 7.31 mmol/L (7.35-7.45); ABG PO2 70.6 mmhg (80-100); ABG TCO2 24.9 mmhg (23-27)
--- NOTE | 2024-05-23 11:36 | CA_ITS ---
APPROVED REPORT EXAM: Comprehensive 2D, Doppler, and color-flow Echocardiogram Project Portfolio Analyst: Shweta Stringer, RT(R) Ht: 5 ft 0 in Wt: 86lbs BSA: 1.30 BP: 93/55 mmHg Indications: Found unresponsvie, cold to touch, mechanical ventilalation, CAD, abn EKG, hx LVH, ex smoker, COPD, HTN, home O2. 2D Dimensions IVSd 1.36 cm F: 0.6-1.0 LVEF (Visual) 43.20 % PWd 1.03 cm F: 0.6 - 1.0 LVDd 1.94 cm F: 3.9 - 5.3 LVDs 1.56 cm F: 2.2 - 3.5 M-Mode Dimensions RVDd 1.87 cm (0.9-2.6) LVDd 2.52 cm (3.5-5.7) LVDs 1.90 cm (3.5-5.7) IVSd 1.53 cm (0.6-1.1) PWd 0.72 cm (0.6-1.1) EF (Teich) 50.90% FS 24.60% EDV (Teich) 22.80 mL ESV (Teich) 11.20 mL LV Diastology E Decel Time 150 (160-240 msec) E/A Ratio 0.6 Mitral Valve MV E Max Noe. 49.0 (40-130 cm/s) MV A Velocity 80.0 (40-130 cm/s) E/A Ratio 0.61 MV PHT 44.0 ms Tricuspid Valve TR P. Velocity 214.00 cm/s RAP Estimate 10.00 mmHg RVSP 28.40 mmHg Left Ventricle The left ventricle is normal size. The left ventricular systolic function is normal. The left ventricular ejection fraction is within the normal range. There is increased LV wall thickness. There is normal LV segmental wall motion. Diastolic function is indeterminate. LVEF is 55%. Right Ventricle Right ventricle is moderately dilated. Right ventricle is severely hypokinetic. Atria The left atrium size is normal. The right atrium is moderately dilated. The interatrial septum is not well-visualized. Aortic Valve The aortic valve is mildly thickened. There is no aortic valvular stenosis. No aortic regurgitation is present. Mitral Valve The mitral valve is mildly thickened. No evidence of mitral valve stenosis. Trace mitral regurgitation. Tricuspid Valve The tricuspid valve leaflets are thin and pliable. Mild tricuspid regurgitation. RVSP is 30 mmHg + RA pressure. Pulmonic Valve The pulmonary valve is normal in structure. Mild pulmonic regurgitation. Great Vessels The aortic root is not well-visualized. The IVC is not well-visualized. Pericardium There is no pericardial effusion. Other Information Study Quality: Technically Difficult Conclusion Technically difficult study due to poor acoustic windows. Normal LV systolic function. Moderate RV dilation with severe reduction in LV function. Moderate RA dilation. Mild TR. RVSP 30 mmHg + RA pressure. Electronically signed by : Swetha Hale MD 05/23/2024 13:31:12
[2024-05-23 11:38] LABS: Lactate Arterial 4.3 mmol/L (0.4-2.0)
[2024-05-23 11:39] LABS: Oxygen 100 %; PEEP 10; Source ALINE; Tidal Volume 320; Vent Rate 18
[2024-05-23 11:43] LABS: Appearance,Urine CLEAR (Clear); Blood, Urine Negative (Negative); Color,Urine YELLOW (Yellow); Glucose,Urine (UA) Negative (Negative); Ketones,Urine Negative (Negative); Leukocyte Esterase,Urine Negative (Negative); Nitrate,Urine Negative (Negative); Protein,Urine 1+ (Negative); Specific Gravity, Urine >= 1.030 (1.005-1.030)
--- NOTE | 2024-05-23 11:43 | P.CONCA_ITS ---
History of Present Illness History of Present Illness Consult date: 05/23/24 Requesting physician: Efrain Stephen Chief complaint: AMS History of present illness: 78-year-old white female established patient of our office last seen in June 2023. She had stenting of her LAD at that time. RCA had mild persistent disease. She had normal BiV function but severe LVH at 1.4 cm. Further cardiac testing was ordered to evaluate her hypertrophy and but she did not follow-up or keep any of these tests. In addition to cardiac history patient has severe COPD on 3.5 L/min O2. She lives with her daughter for the past 15 years. Patient's daughter reports she came home this morning and found patient in position and very cool to touch. She was responsive but altered. EMS was called and patient was found to have O2 around 20% and she was hypotensive and hypothermic around 90 ?F. Extensive workup is in process. White count normal. Lactic acid 8, proBNP 15,000, EKG shows sinus rhythm without Q waves or ST changes. All CTs are currently pending but per ER physician no large PE or saddle embolus. Initial troponin 0.2, AST ALT mildly elevated, creatinine normal. Patient is intubated but family does not want CPR if it were to be necessary. She is on telemetry normal sinus rhythm. [facility] Disclaimer: The information contained in this section may have been updated after the patient was seen, as this information can be updated by other users. Medical History Allergic rhinitis Coronary artery disease Abnormal ECG Abnormal cardiac CT angiography HTN (hypertension) Tachycardia COPD exacerbation Respiratory failure with hypoxia Chest pain Stopped smoking with greater than 30 pack year history COPD (chronic obstructive pulmonary disease) Lung nodule History of COPD Chronic respiratory failure with hypoxia, on home oxygen therapy Dyspnea on exertion Surgical History History of coronary artery stent placement History of arthroplasty of left ankle Hx of cholecystectomy Family History Brother History of heart disease Social History Smoking Status: Former smoker alcohol intake: never current occupational status: retired Travel in the last 8 weeks: None Review of Systems Review of Systems Review of systems:: unable to obtain Exam Data for Last 24 hours Vital signs and Labs for Last 24 Hours: Temp Pulse Resp BP Pulse Ox O2 Del Method FiO2 96.6 F L 75 18 93/55 L 94 L Mechanical Ventilation 100 05/23/24 11:30 05/23/24 11:30 05/23/24 11:30 05/23/24 11:30 05/23/24 11:30 05/23/24 11:30 05/23/24 10:27 Laboratory Results - last 24 hr 05/23/24 08:57: WBC 9.2, RBC 3.55 L, Hgb 11.7 L, Hct 39.3, MCV 110.9 H, MCH 33.0 H, MCHC 29.8 L, RDW 13.4, Plt Count 302, MPV 8.4, Neut % (Auto) 82.2 H, Lymph % (Auto) 9.9 L, [place] % (Auto) 6.9, Eos % (Auto) 0.4, Baso % (Auto) 0.7, Neut # (Auto) 7.6, Lymph # (Auto) 0.9, [place] # (Auto) 0.6, Eos # (Auto) 0.0, Baso # (Auto) 0.1, Sodium 141, Potassium 5.7 H, Chloride 95 L, Carbon Dioxide 25, Anion Gap 26.7 H, BUN 28 H, Creatinine 0.70, Estimated Creat Clear 29, Estimated GFR 81, Est GFR ( Amer) 98, Glucose 57 L, Calcium 9.1, Magnesium 1.5 L, Total Bilirubin 1.3, AST 230 H, ALT 175 H, Alkaline Phosphatase 94, Total Creatine Kinase 85, Troponin I 0.20 H, NT-Pro-B Natriuret Pep 02381 H, Total Protein 6.6, Albumin 4.0, Globulin 2.6, Albumin/Globulin Ratio 1.5, Lipase 89 05/23/24 09:42: Specimen Source Artline, O2 % 100%, ABG pH 7.28 L, ABG pCO2 47.3 H, ABG pO2 67.0 L, ABG HCO3 21.5 L, ABG Total CO2 22.9 L, ABG O2 Saturation 89 L , ABG Base Excess -5.3 L, ABG Sodium 138, ABG Potassium 4.6, ABG Chloride 99, ABG Lactate 8.5 H, Vent Rate 18, Tidal Volume 320, PEEP 5, Arterial Blood Potassium 4.6, Arterial Blood Chloride 99 05/23/24 11:25: Specimen Source Karyn, O2 % 100, ABG pH 7.31 L, ABG pCO2 47.4 H, ABG pO2 70.6 L, ABG HCO3 23.4, ABG Total CO2 24.9, ABG O2 Saturation 92, ABG Bas e Excess -2.8 L, ABG Lactate 4.3 H, Vent Rate 18, Tidal Volume 320, PEEP 10 I & O for Last 24 hours: Intake & Output 05/20/24 05/21/24 05/22/24 05/23/24 23:59 23:59 23:59 23:59 Weight 86 lb Constitutional Constitutional: cachectic and obtunded *Routine HEENT Exam Eye: Present PERRL *Routine Respiratory Exam Respiratory: Present CTA bilaterally; Absent accessory muscle use, wheezes or crackles Comments: intubated *Routine Cardiovascular Exam Cardiovascular: Present RRR, Normal S1 and Normal S2; Absent murmur, gallop or rubs *Routine Abdominal Exam Abdominal: Present soft and tenderness; Absent distended *Routine Extremities Exam Extremities: Present pulses intact; Absent cyanosis or edema Comments: BLE cold and mottled *Routine Skin Exam Skin: Present intact; Absent erythema or wounds *Routine Neurological Exam Neurological: Present alert and oriented X3 Routine Psychiatric Exam Psychiatric: Present cooperative Meds Home Medications and Allergies Home Medications ?Medication ?Instructions ?Recorded ?Confirmed ?Type alendronate 70 mg tablet 70 mg PO WEEKLY Oseoporosis 03/18/22 01/04/24 History losartan 50 mg tablet 50 mg PO DAILY High Blood Pressure 03/18/22 01/04/24 History cholecalciferol (vitamin D3) 1,250 1,250 mcg PO WEEKLY Supplement 08/05/22 01/04/24 History mcg (50,000 unit) tablet albuterol sulfate 90 mcg/actuation 2 inh inhalation QIDP PRN 07/17/23 01/04/24 History aerosol inhaler shortness of breath or wheezing aspirin 81 mg chewable tablet 81 mg PO DAILY Heart Disease 07/17/23 01/04/24 History fluticasone 500 mcg-salmeterol 50 1 inh inhalation BIDRT Copd 07/17/23 01/04/24 History mcg/dose blistr powdr for inhalation (Advair Diskus) ipratropium 0.5 mg-albuterol 3 mg 3 ml inhalation QIDP PRN shortness 07/17/23 01/04/24 History (2.5 mg base)/3 mL nebulization of breath or wheezing soln lorazepam 0.5 mg tablet 0.25 mg (1/2 x 0.5 mg) PO BIDP PRN 07/18/23 01/04/24 Rx Anxiety 3 days #3 tabs umeclidinium 62.5 mcg/actuation 1 inh inhalation DAILY 90 days #90 10/27/23 Rx blister powder for inhalation ea (Incruse Ellipta) fluticasone propionate 50 1 spray intranasal DAILY 90 days 01/04/24 01/04/24 Rx mcg/actuation nasal #16 grams spray,suspension (Flonase Allergy Relief) atorvastatin 20 mg tablet 20 mg PO DAILY Cholesterol #30 tabs 01/19/24 Rx clopidogrel 75 mg tablet (Plavix) 75 mg PO DAILY Blood Thinner #30 03/20/24 Rx tabs metoprolol succinate 25 mg 25 mg PO DAILY High Blood Pressure 05/18/24 Rx tablet,extended release 24 hr #90 tabs New Prescriptions to Start Prescriptions: Allergies Allergy/AdvReac Type Severity Reaction Status Date / Time No Known Allergies Allergy Verified 01/04/24 14:35 Assessment and Plan *Assessment and plan (1) Multiorgan failure: Status: Acute Category: Medical (2) Anoxic brain injury: Status: Acute Category: Medical Code(s): G93.1 - Anoxic brain damage, not elsewhere classified (3) Acute on chronic hypoxic respiratory failure: Status: Acute Category: Medical Code(s): J96.21 - Acute and chronic respiratory failure with hypoxia (4) Coronary artery disease: Status: Chronic Qualifiers: Coronary Disease-Associated Artery/Lesion type: [place] artery [place] vs. transplanted heart: [place] heart Associated angina: without angina Qualified Code(s): I25.10 - Atherosclerotic heart disease of [place] coronary a rtery without angina pectoris Category: Medical Code(s): I25.10 - Atherosclerotic heart disease of [place] coronary artery without angina pectoris (5) COPD (chronic obstructive pulmonary disease): Status: Chronic Qualifiers: COPD type: emphysema Emphysema type: unspecified Qualified Code(s): J43.9 - Emphysema, unspecified Category: Medical Code(s): J44.9 - Chronic obstructive pulmonary disease, unspecified (6) Cachexia: Status: Acute Category: Medical Code(s): R64 - Cachexia Plan Multiorgan failure - O2 20% Temp 90F, Rising Troponin, LFTs, AMS - Broad Differential, workup in process - Consider CV etiology EKG: SR without ischemic changes Trop: 0.[address] Chest: Pending, prelim shows no large PE ECHO: Bedside ECHO per ER MD - normal EF, severe LVH. Full ECHO is pending - Continue Telemetry Monitoring - UA pending Anoxic Brain Injury - pt found down in position with O2 20% - Lactic 8 - CT head pending CAD s/p TRACEY 06/2023 - Trop 0.2 - No recent c/o CP per family - EKG: SR without ischemia - ECHO pending LVH - LVH 1.4cm 06/2023 on ECHO but pt did not f/u for HOCM evaluation -monitor for VT Acute on Chronic Hypoxic Resp Failure - 3.5L/min baseline - O2 20% and Temp 90F on arrival - CT chest pending - Nml WBC Hypotension - fluid resusc in process *Pt severely hypothermic and unresponsive which portends a very poor prognosis - family aware. Further CV recommendations pending test results.
[2024-05-23 11:49] LABS: Bilirubin,Urine 1+ (Negative)
[2024-05-23 12:09] LABS: RBC,Urine Occasional #/hpf (0-3); Squamous Epithelial Cell,Urine Occasional #/hpf (0-5); WBC,Urine Occasional #/hpf (0-3)
--- NOTE | 2024-05-23 12:10 | PC.NURSE ---
DR MATHEWS NOTIFIED OF ARTERIAL PRESSURE 87/50, ORDERS FOR 500ML LR BOLUS
[2024-05-23 12:14] LABS: HIV (1&2) Antibody Rapid NONREACTIVE (NONREACTIVE)
[2024-05-23] MEDS: RINGERS SOLUTION,LACTATED 500 ML 999 ML IV (12:15)
[2024-05-23 12:16] LABS: Ethyl Alcohol < 10 mg/dl (0-10)
--- NOTE | 2024-05-23 12:17 | PC.NURSE ---
Dr. Panda's office made aware of patient status.
[2024-05-23 12:24] LABS: Acetaminophen < 10 ug/ml (10-30); Salicylate < 1.0 mg/dL (2.0-20.0)
--- NOTE | 2024-05-23 12:24 | PC.NURSE ---
CURRENT ARTERIAL PRESSURE 104/59
[2024-05-23 12:25] LABS: Amphetamine/Metha Screen,Urine Negative ng/ml (<1000)
[2024-05-23 12:26] LABS: Barbiturates Screen,Urine Negative ng/ml (<200); Benzodiazepines Screen,Urine Negative ng/ml (<200)
[2024-05-23 12:27] LABS: Cannabinoid Screen,Urine Negative ng/ml (<50); Cocaine Screen,Urine Negative ng/ml (<300)
[2024-05-23 12:28] LABS: Methadone Screen,Urine Negative ng/ml (<300)
[2024-05-23 12:29] LABS: Opiate Screen,Urine Negative ng/ml (<300); Phencyclidine Screen,Urine Negative ng/ml (<25)
--- NOTE | 2024-05-23 12:30 | PC.NURSE ---
DR MATHEWS AT BEDSIDE TO UPDATE FAMILY
[2024-05-23 12:58] LABS: T4 (Thyroxine) 11.1 ug/dl (5.53-11.0)
--- NOTE | 2024-05-23 13:01 | PC.NURSE ---
ECHO AT BEDSIDE
[2024-05-23 13:12] LABS: Thyroid Stimulating Hormone 0.25 uIU/mL (0.465-4.68)
--- NOTE | 2024-05-23 13:15 | PC.NURSE ---
DR CESPEDES AT BEDSIDE
[2024-05-23] MEDS: VANCOMYCIN HCL 750 MG in 0.9 % SODIUM CHLORIDE 250 ML 125 MG IV (13:18)
--- NOTE | 2024-05-23 13:23 | P.CONS_ITS ---
History of Present Illness History of present illness: Ms. Rodríguez is a 78-year-old female greater than [id number] smoking history last month around 1999 because of diagnosis of COPD chronic hypoxic respiratory failure on 3 to 4 L oxygen supplementation at baseline, CAD status post stenting was found to be altered and lethargic when family presented to house this morning and was brought to the ER for further evaluation and management. Patient family states that she was fine yesterday evening before the daughter left to work. [facility] Disclaimer: The information contained in this section may have been updated after the patient was seen, as this information can be updated by other users. Medical History (Updated 05/23/24 @ 14:57 by Kayleigh Sibley MD) On mechanically assisted ventilation Allergic rhinitis Coronary artery disease Abnormal ECG Abnormal cardiac CT angiography HTN (hypertension) Tachycardia COPD exacerbation Respiratory failure with hypoxia Chest pain Stopped smoking with greater than 30 pack year history COPD (chronic obstructive pulmonary disease) Lung nodule History of COPD Chronic respiratory failure with hypoxia, on home oxygen therapy Dyspnea on exertion Surgical History History of coronary artery stent placement History of arthroplasty of left ankle Hx of cholecystectomy Family History Brother History of heart disease Social History Smoking Status: Former smoker alcohol intake: never current occupational status: retired Travel in the last 8 weeks: None Review of Systems Review of Systems Review of systems:: unable to obtain Pulmonology Exam Inpatient Vital signs and Labs for Last 24 Hours: Temp Pulse Resp BP Pulse Ox O2 Del Method FiO2 97.9 F 75 18 117/80 97 Mechanical Ventilation 100 05/23/24 12:50 05/23/24 12:50 05/23/24 12:50 05/23/24 12:50 05/23/24 12:50 05/23/24 12:50 05/23/24 10:27 Laboratory Results - last 24 hr 05/23/24 08:57: WBC 9.2, RBC 3.55 L, Hgb 11.7 L, Hct 39.3, MCV 110.9 H, MCH 33.0 H, MCHC 29.8 L, RDW 13.4, Plt Count 302, MPV 8.4, Neut % (Auto) 82.2 H, Lymph % (Auto) 9.9 L, [place] % (Auto) 6.9, Eos % (Auto) 0.4, Baso % (Auto) 0.7, Neut # (Auto) 7.6, Lymph # (Auto) 0.9, [place] # (Auto) 0.6, Eos # (Auto) 0.0, Baso # (Auto) 0.1, Sodium 141, Potassium 5.7 H, Chloride 95 L, Carbon Dioxide 25, Anion Gap 26.7 H, BUN 28 H, Creatinine 0.70, Estimated Creat Clear 29, Estimated GFR 81, Est GFR ( Amer) 98, Glucose 57 L, Calcium 9.1, Magnesium 1.5 L, Total Bilirubin 1.3, AST 230 H, ALT 175 H, Alkaline Phosphatase 94, Total Creatine Kinase 85, Troponin I 0.20 H, NT-Pro-B Natriuret Pep 68154 H, Total Protein 6.6, Albumin 4.0, Globulin 2.6, Albumin/Globulin Ratio 1.5, Lipase 89, Salicylates < 1.0 L, Acetaminophen < 10 L, Plasma/Serum Alcohol < 10 05/23/24 09:11: Urine Color Yellow, Urine Appearance Clear, Urine pH 6.0, Ur Specific [place] >= 1.030, Urine Protein 1+ A, Urine Glucose (UA) Negative, Urine Ketones Negative, Urine Blood Negative, Urine Nitrate Negative, Urine Bilirubin 1+ A, Urine Urobilinogen 4.0, Ur Leukocyte Esterase Negative, Urine RBC Occasional, Urine WBC Occasional, Ur Squamous Epith Cells Occasional, Urine Bacteria None, Urine Opiates Screen Negative, Urine Methadone Screen Negative, Ur Barbituates Screen Negative, Ur Phencyclidine Scrn Negative, Ur Amphetamines Screen Negative, U Benzodiazepines Scrn Negative, Urine Cocaine Screen Negative, U Marijuana (THC) Screen Negative 05/23/24 09:42: Specimen Source Artline, O2 % 100%, ABG pH 7.28 L, ABG pCO2 47.3 H, ABG pO2 67.0 L, ABG HCO3 21.5 L, ABG Total CO2 22.9 L, ABG O2 Saturation 89 L , ABG Base Excess -5.3 L, ABG Sodium 138, ABG Potassium 4.6, ABG Chloride 99, A BG Lactate 8.5 H, Vent Rate 18, Tidal Volume 320, PEEP 5, Arterial Blood Potassium 4.6, Arterial Blood Chloride 99 05/23/24 11:10: HIV 1&2 Antibody Rapid Nonreactive 05/23/24 11:25: Specimen Source Karyn, O2 % 100, ABG pH 7.31 L, ABG pCO2 47.4 H, ABG pO2 70.6 L, ABG HCO3 23.4, ABG Total CO2 24.9, ABG O2 Saturation 92, ABG Base Excess -2.8 L, ABG Lactate 4.3 H, Vent Rate 18, Tidal Volume 320, PEEP 10 05/23/24 : TSH 0.25 L, Thyroxine (T4) 11.1 H I & O for Labs for Last 24 Hours: Intake & Output 05/20/24 05/21/24 05/22/24 05/23/24 23:59 23:59 23:59 23:59 Output Total 700 / 700 Balance -700 / -700 Weight 86 lb Constitutional: Present severe distress Comment:: Intubated and Sedated Head: Present normocephalic and atraumatic ENT: Present normal exam, normal oropharynx and mucous membranes moist Neck: Present normal inspection and full ROM Respiratory: Present prolonged expiratory phase, respiratory distress and diminished air movement; Absent wheezes, crackles or able to speak in complete sentences Cardiac: Present S1/S2, Tachycardia and radial pulses present GI: Present soft and distention; Absent tenderness or guarding Rectal (female): Present deferred (female): Present deferred Skin: Present intact; Absent cyanosis or jaundice Neuro: Absent alert, awake or oriented x 3 Comment:: Intubated and sedated Extremities: Present normal inspection; Absent clubbing or cyanosis Meds Home Medications and Allergies Home Medications ?Medication ?Instructions ?Recorded ?Confirmed ?Type alendronate 70 mg tablet 70 mg PO WEEKLY Oseoporosis 03/18/22 01/04/24 History losartan 50 mg tablet 50 mg PO DAILY High Blood Pressure 03/18/22 01/04/24 History cholecalciferol (vitamin D3) 1,250 1,250 mcg PO WEEKLY Supplement 08/05/22 01/04/24 History mcg (50,000 unit) tablet albuterol sulfate 90 mcg/actuation 2 inh inhalation QIDP PRN 07/17/23 01/04/24 History aerosol inhaler shortness of breath or wheezing aspirin 81 mg chewable tablet 81 mg PO DAILY Heart Disease 07/17/23 01/04/24 History fluticasone 500 mcg-salmeterol 50 1 inh inhalation BIDRT Copd 07/17/23 01/04/24 History mcg/dose blistr powdr for inhalation (Advair Diskus) ipratropium 0.5 mg-albuterol 3 mg 3 ml inhalation QIDP PRN shortness 07/17/23 01/04/24 History (2.5 mg base)/3 mL nebulization of breath or wheezing soln lorazepam 0.5 mg tablet 0.25 mg (1/2 x 0.5 mg) PO BIDP PRN 07/18/23 01/04/24 Rx Anxiety 3 days #3 tabs umeclidinium 62.5 mcg/actuation 1 inh inhalation DAILY 90 days #90 10/27/23 01/04/24 Rx blister powder for inhalation ea (Incruse Ellipta) fluticasone propionate 50 1 spray intranasal DAILY 90 days 01/04/24 01/04/24 Rx mcg/actuation nasal #16 grams spray,suspension (Flonase Allergy Relief) atorvastatin 20 mg tablet 20 mg PO DAILY Cholesterol #30 tabs 01/19/24 Rx clopidogrel 75 mg tablet (Plavix) 75 mg PO DAILY Blood Thinner #30 03/20/24 Rx tabs metoprolol succinate 25 mg 25 mg PO DAILY High Blood Pressure 05/18/24 Rx tablet,extended release 24 hr #90 tabs New Prescriptions to Start Prescriptions: Allergies Allergy/AdvReac Type Severity Reaction Status Date / Time No Known Allergies Allergy Verified 01/04/24 14:35 Results Laboratory Findings 05/23/24 08:57 05/23/24 08:57 ABG ABG pH 7.31 mmol/L (7.35-7.45) L 05/23/24 11:25 ABG pCO2 47.4 mmhg (35.0-45.0) H 05/23/24 11:25 ABG pO2 70.6 mmhg (80-100) L 05/23/24 11:25 ABG O2 Saturation 92 % (90-100) 05/23/24 11:25 Abnormal lab findings: Abnormal Labs 10/01/24 10/01/24 10/01/24 08:57 09:11 09:42 RBC 3.55 L Hgb 11.7 L MCV 110.9 H MCH 33.0 H MCHC 29.8 L Neut % (Auto) 82.2 H Lymph % (Auto) 9.9 L ABG pH 7.28 L ABG pCO2 47.3 H ABG pO2 67.0 L ABG HCO3 21.5 L ABG Total CO2 22.9 L ABG O2 Saturation 89 L ABG Base Excess -5.3 L ABG Lactate 8.5 H Potassium 5.7 H Chloride 95 L Anion Gap 26.7 H BUN 28 H Glucose 57 L Magnesium 1.5 L AST 230 H ALT 175 H Troponin I 0.20 H NT-Pro-B Natriuret Pep 42279 H TSH Thyroxine (T4) Urine Protein 1+ A Urine Bilirubin 1+ A Salicylates < 1.0 L Acetaminophen < 10 L 05/23/24 05/23/24 11:25 Unknown RBC Hgb MCV MCH MCHC Neut % (Auto) Lymph % (Auto) ABG pH 7.31 L ABG pCO2 47.4 H ABG pO2 70.6 L ABG HCO3 ABG Total CO2 ABG O2 Saturation ABG Base Excess -2.8 L ABG Lactate 4.3 H Potassium Chloride Anion Gap BUN Glucose Magnesium AST ALT Troponin I NT-Pro-B Natriuret Pep TSH 0.25 L Thyroxine (T4) 11.1 H Urine Protein Urine Bilirubin Salicylates Acetaminophen Assessment and Plan *Assessment and plan (1) Acute and chronic respiratory failure with hypoxia: Status: Acute Category: Medical Code(s): J96.21 - Acute and chronic respiratory failure with hypoxia (2) On mechanically assisted ventilation: Status: Acute Category: Medical Code(s): Z99.11 - Dependence on respirator [ventilator] status Plan Much of the history is obtained from chart review and patient family greater than sedated. Ms. Rodríguez is a 78-year-old female greater than [id number] smoking history last month around 1999 because of diagnosis of COPD chronic hypoxic respiratory failure on 3 to 4 L oxygen supplementation at baseline, CAD status post stenting was found to be altered and lethargic when family presented to house this morning and was brought to the ER for further evaluation and management. Patient family states that she was fine yesterday evening before the daughter left to work. Patient upon presentation visitor were found to be hypotensive and hypothermic. Warming blankets applied. Hemodynamics improved after volume resuscitation. No need for vasopressor support. Patient was also given steroids given hypothermia upon presentation pending TSH and T4. Afebrile. Hemodynamically stable. No evidence of leukocytosis. CT chest NO evidence of pulmonary embolism. Diffuse centrilobular emphysematous changes. No Consolidative/airspace disease noted. No effusion/groundglass opacities noted. ABG upon admission mixed metabolic and respiratory acidosis. BNP significantly elevated. Plan: Continue Analgo sedation with propofol and fentanyl Mechanical ventilatory support, 2 FiO2 of 10%. 10 of volume and rate of 18. ABG from admission showed mixed metabolic and respiratory acidosis. Lactate improving from 8.5-2.3. Most recent ABG pH of 7.43 with a pCO2 of 40.3 and a pO2 of 75.4. DuoNebs every 6 hours along with Pulmicort every 12 scheduled Ceftriaxone azithromycin pending culture results Hemodynamically stable. Follow-up blood cultures. Echo normal EF. RV Dilated with hypokinesis. CT no evidence of pulmonary embolism. Recommend Levothyroxine 12.5 mcg IV daily Abdomen soft nondistended CKD stage III with reduced GFR. Renally dose medications. Monitor urine output. MAP goal greater than 65. - Continue mechanical ventilatory support - Continue AnalgoSedation with Propofol and Fentanyl with CPOT gal less than or euqal to 2 and RASS goal of to 2 (No need for deep sedation) - VAP bundle Recommend elevate head of the bed at 30 to 45 degrees Recommend oral care with chlorhexidne Recommend GI ulcer prophylaxis - Famotidine 20mg IV BID Recommend chemical DVT prophylaxis Total critical care time spent on this patient is 35 minutes managing acute hypoxic respiratory failure needing mechanical ventilation. This time spent include reviewing test results including interpreting chest x-rays, labs and arterial blood gas, optimizing the ventilator settings,formulating plan of care, discussing the plan of care with the team and the nursing staff.
--- NOTE | 2024-05-23 13:27 | PC.NURSE ---
[employer] FACULTY MEMBER NOTIFIED OF ADMISSION
[2024-05-23 13:55] LABS: Reflex Lactic Add Lactic Reflex
--- NOTE | 2024-05-23 13:58 | PC.NURSE ---
Dr. Stephen notified of troponin of 0.20.
--- NOTE | 2024-05-23 14:21 | PC.NURSE ---
REPORT CALLED JUAN F RÍOS
--- NOTE | 2024-05-23 14:35 | PC.NURSE ---
Dr. Panda at bedside.
[2024-05-23] MEDS: LACTATED RINGERS 1000ML 1,000 ML 75 ML IV (15:38)
[2024-05-23] MEDS: FENTANYL CITRATE/PF 1,000 MCG in 0.9 % SODIUM CHLORIDE 80 ML 2.5 MCG IV (15:38)
[2024-05-23] MEDS: propofoL 100 ML 1.17 MG IV (15:46)
[2024-05-23 17:01] LABS: Lactic Acid Follow Up (RFLX 1) 1.3 mmol/L (0.7-2.1)
[2024-05-23 17:17] LABS: Troponin I 0.28 ng/ml (0.00-0.034)
--- NOTE | 2024-05-23 17:47 | DIET.NUTRFU ---
Consulted secondary to low cori score putting her at increased risk for skin breakdown. Patient is currently NPO on vent. Based on providers note tubefeeding is not within family wishes. Will continue to follow patients condition to determine nutritional needs and route.
--- NOTE | 2024-05-23 17:51 | EXP.HP ---
History of Present Illness *Admission Date: 05/23/24 *Reason for visit:: Acute encephalopathy, GCS less than 3 requiring intubation *History of present illness: Patient is a 78-year-old female with a medical history significant for COPD, hypertension, CAD s/p stent who presented to the ED via EMS after she was found to be unresponsive at home. Per daughter who was at bedside, she states patient became more weak, slurring speech over the course of the day at which point she was ultimately found to be unresponsive at home. On arrival, patient was hypotensive, hypothermic, and very minimal breath sounds (GCS) and decision was made to rapid sequence intubate patient. Workup significant for ABG pH 7.31, pCO2 47.4, potassium 5.7, magnesium 1.5, AST/ALT 230/175, troponin 0.2, BNP 94535, TSH low 0.25, T4 normal high 11.1. CT abdomen/pelvis revealed bilateral adrenal gland hyperplasia. CTA chest, head/neck CTA did not find reveal acute findings. ECHO does show increased LV wall thickness, LVEF 55%, normal systolic function. Case discussed with the ED provider and decision was made to admit patient for acute encephalopathy of unknown cause requiring mechanical intubation. [facility] Disclaimer: The information contained in this section may have been updated after the patient was seen, as this information can be updated by other users. Medical History On mechanically assisted ventilation Allergic rhinitis Coronary artery disease Abnormal ECG Abnormal cardiac CT angiography HTN (hypertension) Tachycardia COPD exacerbation Respiratory failure with hypoxia Chest pain Stopped smoking with greater than 30 pack year history COPD (chronic obstructive pulmonary disease) Lung nodule History of COPD Chronic respiratory failure with hypoxia, on home oxygen therapy Dyspnea on exertion Surgical History History of coronary artery stent placement History of arthroplasty of left ankle Hx of cholecystectomy Family History Brother History of heart disease Social History (Updated 05/23/24 @ 15:56 by Daisha Meade RN) Smoking Status: Former smoker alcohol intake: never current occupational status: retired Travel in the last 8 weeks: None Meds Home Medications and Allergies Home Medications ?Medication ?Instructions ?Recorded ?Confirmed ?Type alendronate 70 mg tablet 70 mg PO WEEKLY Oseoporosis 03/18/22 05/23/24 History losartan 50 mg tablet 50 mg PO DAILY High Blood Pressure 03/18/22 05/23/24 History cholecalciferol (vitamin D3) 1,250 1,250 mcg PO WEEKLY Supplement 08/05/22 05/23/24 History mcg (50,000 unit) tablet albuterol sulfate 90 mcg/actuation 2 inh inhalation QIDP PRN 07/17/23 05/23/24 History aerosol inhaler shortness of breath or wheezing aspirin 81 mg chewable tablet 81 mg PO DAILY Heart Disease 07/17/23 05/23/24 History fluticasone 500 mcg-salmeterol 50 1 inh inhalation BIDRT Copd 07/17/23 05/23/24 History mcg/dose blistr powdr for inhalation (Advair Diskus) ipratropium 0.5 mg-albuterol 3 mg 3 ml inhalation QIDP PRN shortness 07/17/23 05/23/24 History (2.5 mg base)/3 mL nebulization of breath or wheezing soln lorazepam 0.5 mg tablet 0.25 mg (1/2 x 0.5 mg) PO BIDP PRN 07/18/23 05/23/24 Rx Anxiety 3 days #3 tabs umeclidinium 62.5 mcg/actuation 1 inh inhalation DAILY 90 days #90 10/27/23 05/23/24 Rx blister powder for inhalation ea (Incruse Ellipta) atorvastatin 20 mg tablet 20 mg PO DAILY Cholesterol #30 tabs 01/19/24 05/23/24 Rx clopidogrel 75 mg tablet (Plavix) 75 mg PO DAILY Blood Thinner #30 03/20/24 05/23/24 Rx tabs metoprolol succinate 25 mg 25 mg PO DAILY High Blood Pressure 05/18/24 05/23/24 Rx tablet,extended release 24 hr #90 tabs New Prescriptions to Start Prescriptions: Allergies Allergy/AdvReac Type Severity Reaction Status Date / Time No Known Allergies Allergy Verified 01/04/24 14:35 Exam Data for Last 24 hours Vital signs and Labs for Last 24 Hours: Temp Pulse Resp BP Pulse Ox O2 Del Method FiO2 98.0 F 90 19 127/67 95 Mechanical Ventilation 100 05/23/24 17:00 05/23/24 17:00 05/23/24 17:00 05/23/24 17:00 05/23/24 17:00 05/23/24 17:00 05/23/24 14:05 Laboratory Results - last 24 hr 05/23/24 08:57: WBC 9.2, RBC 3.55 L, Hgb 11.7 L, Hct 39.3, MCV 110.9 H, MCH 33.0 H, MCHC 29.8 L, RDW 13.4, Plt Count 302, MPV 8.4, Neut % (Auto) 82.2 H, Lymph % (Auto) 9.9 L, [place] % (Auto) 6.9, Eos % (Auto) 0.4, Baso % (Auto) 0.7, Neut # (Auto) 7.6, Lymph # (Auto) 0.9, [place] # (Auto) 0.6, Eos # (Auto) 0.0, Baso # (Auto) 0.1, Sodium 141, Potassium 5.7 H, Chloride 95 L, Carbon Dioxide 25, Anion Gap 26.7 H, BUN 28 H, Creatinine 0.70, Estimated Creat Clear 29, Estimated GFR 81, Est GFR ( Amer) 98, Glucose 57 L, Calcium 9.1, Magnesium 1.5 L, Total Bilirubin 1.3, AST 230 H, ALT 175 H, Alkaline Phosphatase 94, Total Creatine Kinase 85, Troponin I 0.20 H, NT-Pro-B Natriuret Pep 03464 H, Total Protein 6.6, Albumin 4.0, Globulin 2.6, Albumin/Globulin Ratio 1.5, Lipase 89, Salicylates < 1.0 L, Acetaminophen < 10 L, Plasma/Serum Alcohol < 10 05/23/24 09:11: Urine Color Yellow, Urine Appearance Clear, Urine pH 6.0, Ur Specific [place] >= 1.030, Urine Protein 1+ A, Urine Glucose (UA) Negative, Urine Ketones Negative, Urine Blood Negative, Urine Nitrate Negative, Urine Bilirubin 1+ A, Urine Urobilinogen 4.0, Ur Leukocyte Esterase Negative, Urine RBC Occasional, Urine WBC Occasional, Ur Squamous Epith Cells Occasional, Urine Bacteria None, Urine Opiates Screen Negative, Urine Methadone Screen Negative, Ur Barbituates Screen Negative, Ur Phencyclidine Scrn Negative, Ur Amphetamines Screen Negative, U Benzodiazepines Scrn Negative, Urine Cocaine Screen Negative, U Marijuana (THC) Screen Negative 05/23/24 09:42: Specimen Source Artline, O2 % 100%, ABG pH 7.28 L, ABG pCO2 47.3 H, ABG pO2 67.0 L, ABG HCO3 21.5 L, ABG Total CO2 22.9 L, ABG O2 Saturation 89 L, ABG Base Excess -5.3 L, ABG Sodium 138, ABG Potassium 4.6, ABG Chloride 99, ABG Lactate 8.5 H, Vent Rate 18, Tidal Volume 320, PEEP 5, Arterial Blood Potassium 4.6, Arterial Blood Chloride 99 05/23/24 11:10: HIV 1&2 Antibody Rapid Nonreactive 05/23/24 11:25: Specimen Source Karyn, O2 % 100, ABG pH 7.31 L, ABG pCO2 47.4 H, ABG pO2 70.6 L, ABG HCO3 23.4, ABG Total CO2 24.9, ABG O2 Saturation 92, ABG Base Excess -2.8 L, ABG Lactate 4.3 H, Vent Rate 18, Tidal Volume 320, PEEP 10 05/23/24 16:30: Lactate 1.3, Troponin I 0.28 H 05/23/24 : Troponin I 0.20 H, TSH 0.25 L, Thyroxine (T4) 11.1 H I & O for Last 24 hours: Intake & Output 05/20/24 05/21/24 05/22/24 05/23/24 23:59 23:59 23:59 23:59 Output Total 1200 / 1200 Balance -1200 / -1200 Weight 39.009 kg Constitutional Constitutional: no acute distress Comments: Intubated and partially sedated. *Routine HEENT Exam Head: Present normocephalic Eye: Present EOMI and PERRL ENT: Present mucous membranes moist *Routine Neck Exam Neck: Present supple; Absent lymphadenopathy *Routine Respiratory Exam Respiratory: Present CTA bilaterally *Routine Cardiovascular Exam Cardiovascular: Present RRR *Routine Abdominal Exam Abdominal: Present soft and normoactive bowel sounds; Absent tenderness *Routine Rectal Exam Rectal:: deferred *Routine Genitalia Exam Genitalia:: deferred *Routine Extremities Exam Extremities: Absent cyanosis, clubbing or edema *Routine Skin Exam Skin: Present warm; Absent rash *Routine Neurological Exam Neurological: Present alert and oriented X3 Comments: Alert, responding to commands. Nodding appropriately to yes/no questions. Assessment and Plan *Assessment and plan (1) On mechanically assisted ventilation: Status: Acute Category: Medical Code(s): Z99.11 - Dependence on respirator [ventilator] status Plan Patient is a 78-year-old female with a medical history significant for COPD, hypertension, CAD s/p stent who presented to the ED via EMS after she was found to be unresponsive at home. Per daughter who was at bedside, she states patient became more weak, slurring speech over the course of the day at which point she was ultimately found to be unresponsive at home. On arrival, patient was hypotensive, hypothermic, and very minimal breath sounds (GCS) and decision was made to rapid sequence intubate patient. Workup significant for ABG pH 7.31, pCO2 47.4, potassium 5.7, magnesium 1.5, AST/ALT 230/175, troponin 0.2, BNP 45973, TSH low 0.25, T4 normal high 11.1. CT abdomen/pelvis revealed bilateral adrenal gland hyperplasia. CTA chest, head/neck CTA did not find reveal acute findings. ECHO does show increased LV wall thickness, LVEF 55%, normal systolic function. Case discussed with the ED provider and decision was made to admit patient for acute encephalopathy of unknown cause requiring mechanical intubation as patient had very poor breath sounds. #Acute encephalopathy, unknown etiology, resolving #? Anoxic brain injury #Mechanically intubated #Hypotension, resolved #Hypothermia, resolved ? She was reportedly found to be unresponsive with oxygen saturating 20%. Per family, she was normal about 1 days ago. ? She was also hypotensive, and hypothermic on arrival and both resolved with fluid resuscitation and warming blankets. - Lactate improving from 8.5-2.3. ABG from admission showed mixed metabolic and respiratory acidosis. ? Upon my interview, patient was more alert and responding to commands, moving limbs appropriately. ? Initial workup including CTA chest, head/neck did not reveal acute findings. CT abdomen/pelvis did reveal bilateral adrenal gland hyperplasia. UDS unremarkable. ? TSH low 0.25, T4 high normal 11.1. ? Patient is on near minimal vent settings. Continue propofol, fentanyl. ? Patient can likely be weaned off sedation tomorrow, and perform SBT for likely extubation. ? Plan for brain MRI tomorrow to evaluate for CVA, anoxic brain injury. ? No leukocytosis, fevers. Vancomycin, Zosyn given in the ED. Plan to start ceftriaxone, azithromycin for now, wean antibiotics if not indicated based on cultures. #Elevated BNP, troponin ? Initial BNP 15,200, troponin 0.28?0.2. ? Likely reactive from stress response from hypotension, hypothermia. ? No signs of fluid overload at this time. Chest pain-free. EKG does not show acute ischemic findings. #Abnormal thyroid function test ? TSH low 0.25, T4 high normal 11.1 indicating possible primary hyperthyroidism. ? Follow-up thyroid ultrasound. CODE STATUS: Full code DVT prophylaxis: Lovenox 30 mg
--- NOTE | 2024-05-23 18:25 | HMH.ITSTN ---
spoke with mateus about patients mri brain wo . we are going to plan to do it tomorrow around noon but she is aware that patient needs to be off of everything before we do the scan . she will pass it along to the nurses.
[2024-05-23] MEDS: BUDESONIDE 0.5MG/2ML NEB 0.5 MG IH (18:34)
[2024-05-23] MEDS: CEFTRIAXONE 1 GM 1 GM in 0.9 % SODIUM CHLORIDE 50 ML IV (18:44)
--- NOTE | 2024-05-23 18:50 | XR_ITS ---
PROCEDURE INFORMATION: Exam: XR Abdomen Exam date and time: 05/23/2024 7:07 PM Age: 78 years old Clinical indication: Device placement; Gi device; Other: Og; Additional info: Og placement TECHNIQUE: Imaging protocol: Radiologic exam of the abdomen. Views: Frontal supine view of the abdomen. 1 View. COMPARISON: CT ABDOMEN PELVIS W CON 05/23/2024 9:56 AM FINDINGS: Tubes, catheters and devices: Enteric tube terminates in the mid stomach on the 2nd film. Endotracheal tube in good position terminating 3.3 cm from the reginald. Lungs: Hyperinflated lungs consistent with emphysema. No consolidation. Gastrointestinal tract: Normal. No bowel dilation. Intraperitoneal space: Right upper quadrant cholecystectomy clips in place. Vasculature: Atherosclerotic thoracic aorta. Bones/joints: Osteopenia. IMPRESSION: Enteric tube terminates in the mid stomach on the 2nd film.
--- NOTE | 2024-05-23 18:57 | PC.NURSE ---
Pt lightly sedated. Will respond to voice. Pt denies any discomfort at this time. Remains intubated. Vent settings: AC, FiO2 50%, R 18, PEEP, 10, TV 320. F/C with urometer in place. Urine output has decreased this evening. IV ABX infusing. Pt remains on Propofol @ 15 mcg, Fentanyl @ 37.5 mcg. Tolerating vent well. OG placed. KUB ordered and obtained. Aterial line patent. VS have remained stable. Call light within reach.
[2024-05-23] MEDS: AZITHROMYCIN 500 MG in 0.9 % SODIUM CHLORIDE 250 ML 250 MG IV (19:15)
[2024-05-23] MEDS: PANTOPRAZOLE 40MG VIAL 40 MG IV (21:52)
[2024-05-24] VITALS (39 sets, daily range): BP systolic 92–158; BP diastolic 52–86; PULSE 80–115; RESP 16–25; TEMP 37–38; O2SAT 92–97; BMI 16.7
--- NOTE | 2024-05-24 | US_ITS ---
FINAL REPORT TECHNIQUE: Real-time grayscale and color ultrasound of the thyroid was performed. CLINICAL HISTORY: .elevated labs COMPARISON: None FINDINGS: The thyroid gland measures 44 x 21 x 15 mm on the right and 41 x 16 x 16 mm on the left. The isthmus measures 6 mm. The parenchyma is unremarkable . Nodules: There are multiple small anechoic and mixed hypoechoic/anechoic nodules in both lobes of the thyroid measuring up to 6 mm in greatest dimension. These are consistent with TR 3 nodules. IMPRESSION: Bilateral TR 3 nodules less than 1 cm. No follow-up required per TI-RADS criteria. Reviewed, Interpreted and Dictated by Enzo Harrell MD Transcribed by Larisa Tyler Authenticated and [facility]
[2024-05-24] MEDS: LACTATED RINGERS 1000ML 1,000 ML 75 ML IV ×2 (01:45→20:42)
--- NOTE | 2024-05-24 04:42 | PC.NURSE ---
Patient tolerated shift well without acute changes. Remains on Vent: AC, tV 32, FiO2 50%, RR 18, Peep 10. Patient RASS -1 to -2, GCS 10T without distress. Urinary output has been below 30mL/hr via vance. Lungs and heart sounds WNL. Turned q2 without noted pressure areas. Arterial line patent and working. Plan for patient is to complete an SBT this AM and come off of ventilator. NAD, VSS, ICU care continued.
[2024-05-24] MEDS: BUDESONIDE 0.5MG/2ML NEB 0.5 MG IH ×2 (06:53→18:13)
[2024-05-24] MEDS: IPRATROPIUM/ALBUTEROL 3 ML NEB IH ×4 (06:53→23:43)
[2024-05-24 07:06] LABS: Albumin Level 3.2 g/dl (3.5-5.0); Chloride 96 mmol/L (98-107); Potassium 4.6 mmoL/L (3.5-5.1); Sodium 136 mmol/L (136-145)
[2024-05-24 07:08] LABS: Alanine Aminotransferase 357 U/L (12-78); Aspartate Amino Transferase 243 U/L (14-36); Blood Urea Nitrogen 39 mg/dl (7-17); Creatinine Clearance Estimated 29 mL/min (50-200); Estimated Glomerular Filt Rate 81 ml/min (>60); GFR (African American) 98 ML/MIN (>60)
[2024-05-24 07:09] LABS: Albumin/Globulin Ratio 1.4 (1.1-1.8); Alkaline Phosphatase 91 U/L (38-126); Anion Gap 7.6 mEq/L (5-15); Bilirubin,Total 0.4 mg/dl (0.2-1.3); Calcium 8.2 mg/dl (8.4-10.2); Carbon Dioxide 37 mmol/L (22.0-30.0); Globulin 2.3 g/dL (1.3-3.2); Glucose 106 mg/dl (74-100); Total Protein,Serum 5.5 g/dl (6.3-8.2)
[2024-05-24 08:30] LABS: Basophils # 0.1 K/mm3 (0-0.2); Basophils % 0.3 % (0.1-2.0); Hematocrit 34.7 % (37.0-47.0); Hemoglobin 10.9 g/dL (12.2-16.2); Lymphocytes % 10.9 % (10-50); Mean Corpuscular HGB Conc 31.3 g/dL (31.8-35.4); Mean Corpuscular Volume 105.3 fl (81-99); Monocytes # 1.3 K/mm3 (0.1-1.0); Monocytes % 6.9 % (1.7-9.3); Neutrophils # 15.2 K/mm3 (1.8-7.8); Neutrophils % 81.9 % (37.0-80.0); Platelet Count 217 K/mm3 (142-424); Red Cell Distribution Width 13.4 % (11.5-17.5); White Blood Count 18.6 K/mm3 (4.8-10.8)
[2024-05-24 08:54] LABS: MANUAL DIFFERENTIAL MANUAL DIFFERENTIAL (MANUAL DIFF)
[2024-05-24 09:09] LABS: Lymphocytes % 10 % (10-50); Macrocytosis 2+; Monocytes % 3 % (2-9); Neutrophils % 87 % (42-76); Platelet Estimate Normal; Total Cells Counted 100
--- NOTE | 2024-05-24 09:09 | HMH.PHAINT1 ---
Pharmacy Intervention Comments: Home medication list verified using list from pharmacy and interview with daughter at bedside.
--- NOTE | 2024-05-24 09:33 | US_ITS ---
FINAL REPORT CLINICAL HISTORY: Rising LFTs COMPARISON: None FINDINGS: Sonographic images of the right upper quadrant were obtained. The pancreas is obscured. There is a hypoechoic focus in the posterior lateral segment of the left lobe of the liver which appears to represent focal fatty infiltration. The gallbladder is surgically absent. There is no evidence of biliary ductal dilatation.The common duct measures 4mm. Limited images of the right kidney are unremarkable. IMPRESSION: Focal fatty infiltration of the liver. Reviewed, Interpreted and Dictated by Enzo Harrell MD Transcribed by Larisa Tlyer Authenticated and [facility]
--- NOTE | 2024-05-24 09:38 | EXP.PHA.CONS ---
Pharmacy Consult Date: 05/24/24 Time: 09:38 Referring provider: DR. CORTEZ Reason for Consult:: VANCOMYCIN DOSING Allergies Allergy/AdvReac Type Severity Reaction Status Date / Time No Known Allergies Allergy Verified 01/04/24 14:35 Home Medications ?Medication ?Instructions ?Recorded ?Confirmed ?Type losartan 50 mg tablet 50 mg PO DAILY High Blood Pressure 03/18/22 05/23/24 History cholecalciferol (vitamin D3) 1,250 1,250 mcg PO WEEKLY Supplement 08/05/22 05/23/24 History mcg (50,000 unit) tablet albuterol sulfate 90 mcg/actuation 2 inh inhalation QIDP PRN 07/17/23 05/23/24 History aerosol inhaler shortness of breath or wheezing aspirin 81 mg chewable tablet 81 mg PO DAILY Heart Disease 07/17/23 05/23/24 History fluticasone 500 mcg-salmeterol 50 1 inh inhalation BIDRT Copd 07/17/23 05/23/24 History mcg/dose blistr powdr for inhalation (Advair Diskus) ipratropium 0.5 mg-albuterol 3 mg 3 ml inhalation QIDP PRN shortness 07/17/23 05/23/24 History (2.5 mg base)/3 mL nebulization of breath or wheezing soln lorazepam 0.5 mg tablet 0.25 mg (1/2 x 0.5 mg) PO BIDP PRN 07/18/23 05/23/24 Rx Anxiety 3 days #3 tabs umeclidinium 62.5 mcg/actuation 1 inh inhalation DAILY 90 days #90 10/27/23 05/23/24 Rx blister powder for inhalation ea (Incruse Ellipta) atorvastatin 20 mg tablet 20 mg PO DAILY Cholesterol #30 tabs 01/19/24 05/23/24 Rx clopidogrel 75 mg tablet (Plavix) 75 mg PO DAILY Blood Thinner #30 03/20/24 05/23/24 Rx tabs metoprolol succinate 25 mg 25 mg PO DAILY High Blood Pressure 05/18/24 05/23/24 Rx tablet,extended release 24 hr #90 tabs New Prescriptions to Start Prescriptions: Height: 1.52 m Weight: 39 kg Laboratory Results:: Laboratory Results - last 24 hr 05/23/24 08:57: Total Creatine Kinase 85, NT-Pro-B Natriuret Pep 05417 H, Salicylates < 1.0 L, Acetaminophen < 10 L, Plasma/Serum Alcohol < 10 05/23/24 09:11: Urine Color Yellow, Urine Appearance Clear, Urine pH 6.0, Ur Specific [place] >= 1.030, Urine Protein 1+ A, Urine Glucose (UA) Negative, Urine Ketones Negative, Urine Blood Negative, Urine Nitrate Negative, Urine Bilirubin 1+ A, Urine Urobilinogen 4.0, Ur Leukocyte Esterase Negative, Urine RBC Occasional, Urine WBC Occasional, Ur Squamous Epith Cells Occasional, Urine Bacteria None, Urine Opiates Screen Negative, Urine Methadone Screen Negative, Ur Barbituates Screen Negative, Ur Phencyclidine Scrn Negative, Ur Amphetamines Screen Negative, U Benzodiazepines Scrn Negative, Urine Cocaine Screen Negative, U Marijuana (THC) Screen Negative 05/23/24 09:42: Specimen Source Artline, O2 % 100%, ABG pH 7.28 L, ABG pCO2 47.3 H, ABG pO2 67.0 L, ABG HCO3 21.5 L, ABG Total CO2 22.9 L, ABG O2 Saturation 89 L, ABG Base Excess -5.3 L, ABG Sodium 138, ABG Potassium 4.6, ABG Chloride 99, ABG Lactate 8.5 H, Vent Rate 18, Tidal Volume 320, PEEP 5, Arterial Blood Potassium 4.6, Arterial Blood Chloride 99 05/23/24 11:10: HIV 1&2 Antibody Rapid Nonreactive 05/23/24 11:25: Specimen Source Karyn, O2 % 100, ABG pH 7.31 L, ABG pCO2 47.4 H, ABG pO2 70.6 L, ABG HCO3 23.4, ABG Total CO2 24.9, ABG O2 Saturation 92, ABG Base Excess -2.8 L, ABG Lactate 4.3 H, Vent Rate 18, Tidal Volume 320, PEEP 10 05/23/24 16:30: Lactate 1.3, Troponin I 0.28 H 05/23/24 : Troponin I 0.20 H, TSH 0.25 L, Thyroxine (T4) 11.1 H 05/24/24 06:20: WBC 18.6 H D, RBC 3.30 L, Hgb 10.9 L, Hct 34.7 L, MCV 105.3 H, MCH 33.0 H, MCHC 31.3 L, RDW 13.4, Plt Count 217 D, MPV 10.0, Neut % (Auto) 81.9 H, Lymph % (Auto) 10.9, [place] % (Auto) 6.9, Eos % (Auto) 0.0 L, Baso % (Auto) 0.3, Neut # (Auto) 15.2 H, Lymph # (Auto) 2.0, [place] # (Auto) 1.3 H, Eos # (Auto) 0.0, Baso # (Auto) 0.1, Total Counted 100, Neutrophils % (Manual) 87 H, Lymphocytes % (Manual) 10, Monocytes % (Manual) 3, Platelet Estimate Normal, Macrocytosis 2+, Sodium 136, Potassium 4.6, Chloride 96 L, Carbon Dioxide 37 H, Anion Gap 7.6, BUN 39 H D, Creatinine 0.70, Estimated Creat Clear 29, Estimated GFR 81, Est GFR ( Amer) 98, Glucose 106 H D, Calcium 8.2 L, Total Bilirubin 0.4, AST 243 H, ALT 357 H*, Alkaline Phosphatase 91, Total Protein 5.5 L, Albumin 3.2 L D, Globulin 2.3, Albumin/Globulin Ratio 1.4 Medical History: Medical History (Updated 05/23/24 @ 14:57 by Kayleigh Sibley MD) On mechanically assisted ventilation Allergic rhinitis Coronary artery disease Abnormal ECG Abnormal cardiac CT angiography HTN (hypertension) Tachycardia COPD exacerbation Respiratory failure with hypoxia Chest pain Stopped smoking with greater than 30 pack year history COPD (chronic obstructive pulmonary disease) Lung nodule History of COPD Chronic respiratory failure with hypoxia, on home oxygen therapy Dyspnea on exertion Assessment and Plan Assessment and plan all Dx Assessment and Plan for all problems:: Pharmacokinetic dosing service Objective: Patient: Floor: Age: 78 yo Serum creatinine: 1 mg/dL Height: 60.0 Inches Weight (kg): 39 Assessment: IBW (kg): 45.50 Dosing wt(kg): 39 Estimated Creatinine clearance (ml/min): 29.0 CRCL method: Cockcroft and Gault using ibw(default). Drug selected: Vancomycin Loading dose (mg): 0 Vd (liters): 31.2 (factor used: 0.8 L/kg) [place] (hr-1): 0.028 Half life (hrs): 24.76 Recommended dose: 750 mg Interval: 36 hrs Infusion time (hrs): 2.0 Predicted peak (mcg/mL): 36.8 Predicted trough (mcg/mL): 14.20 Total body weight is being used for vancomycin dosing. Renal function is stable [ ] /unstable [ ] Recommendations: Give Vancomycin 750 mg q 36 hrs with an expected Cpeak of 36.8 mcg/ml and an expected Ctrough of 14.20 mcg/ml ----Vanco only - ignore for aminoglycosides----- CLvanco= 0.87 L/hr AUC 0-24 /LIEN Data: LIEN 0.5 mcg/mL: AUC/LIEN: 1149.4 LIEN 1.0 mcg/mL: AUC/LIEN: 574.7 --------- LIEN 1.5 mcg/mL: AUC/LIEN: 383.1 LIEN 2.0 mcg/mL: AUC/LIEN: 287.4
--- NOTE | 2024-05-24 09:45 | P.PN_ITS ---
Subjective *Date: 05/24/24 *Time: 10:51 Interval history: No acute respiratory events overnight. Pulmonology Exam Inpatient Vital signs and Labs for Last 24 Hours: Temp Pulse Resp BP Pulse Ox O2 Del Method FiO2 98.6 F 85 18 123/73 95 Mechanical Ventilation 50 05/24/24 08:00 05/24/24 06:59 05/24/24 06:00 05/24/24 06:00 05/24/24 06:00 05/24/24 06:00 05/24/24 06:54 Laboratory Results - last 24 hr 05/23/24 08:57: Total Creatine Kinase 85, NT-Pro-B Natriuret Pep 81981 H, Salicylates < 1.0 L, Acetaminophen < 10 L, Plasma/Serum Alcohol < 10 05/23/24 09:11: Urine Color Yellow, Urine Appearance Clear, Urine pH 6.0, Ur Specific [place] >= 1.030, Urine Protein 1+ A, Urine Glucose (UA) Negative, Urine Ketones Negative, Urine Blood Negative, Urine Nitrate Negative, Urine Bilirubin 1+ A, Urine Urobilinogen 4.0, Ur Leukocyte Esterase Negative, Urine RBC Occasional, Urine WBC Occasional, Ur Squamous Epith Cells Occasional, Urine Bacteria None, Urine Opiates Screen Negative, Urine Methadone Screen Negative, Ur Barbituates Screen Negative, Ur Phencyclidine Scrn Negative, Ur Amphetamines Screen Negative, U Benzodiazepines Scrn Negative, Urine Cocaine Screen Negative, U Marijuana (THC) Screen Negative 05/23/24 09:42: Specimen Source [place], O2 % 100%, ABG pH 7.28 L, ABG pCO2 47.3 H, ABG pO2 67.0 L, ABG HCO3 21.5 L, ABG Total CO2 22.9 L, ABG O2 Saturation 89 L , ABG Base Excess -5.3 L, ABG Sodium 138, ABG Potassium 4.6, ABG Chloride 99, ABG Lactate 8.5 H, Vent Rate 18, Tidal Volume 320, PEEP 5, Arterial Blood Potassium 4.6, Arterial Blood Chloride 99 05/23/24 11:10: HIV 1&2 Antibody Rapid Nonreactive 05/23/24 11:25: Specimen Source [place], O2 % 100, ABG pH 7.31 L, ABG pCO2 47.4 H, ABG pO2 70.6 L, ABG HCO3 23.4, ABG Total CO2 24.9, ABG O2 Saturation 92, ABG Base Excess -2.8 L, ABG Lactate 4.3 H, Vent Rate 18, Tidal Volume 320, PEEP 10 05/23/24 16:30: Lactate 1.3, Troponin I 0.28 H 05/23/24 : Troponin I 0.20 H, TSH 0.25 L, Thyroxine (T4) 11.1 H 05/24/24 06:20: WBC 18.6 H D, RBC 3.30 L, Hgb 10.9 L, Hct 34.7 L, MCV 105.3 H, MCH 33.0 H, MCHC 31.3 L, RDW 13.4, Plt Count 217 D, MPV 10.0, Neut % (Auto) 81.9 H, Lymph % (Auto) 10.9, [place] % (Auto) 6.9, Eos % (Auto) 0.0 L, Baso % (Auto) 0.3, Neut # (Auto) 15.2 H, Lymph # (Auto) 2.0, [place] # (Auto) 1.3 H, Eos # (Auto) 0.0, Baso # (Auto) 0.1, Total Counted 100, Neutrophils % (Manual) 87 H, Lymphocytes % (Manual) 10, Monocytes % (Manual) 3, Platelet Estimate Normal, Macrocytosis 2+, Sodium 136, Potassium 4.6, Chloride 96 L, Carbon Dioxide 37 H, Anion Gap 7.6, BUN 39 H D, Creatinine 0.70, Estimated Creat Clear 29, Estimated GFR 81, Est GFR ( Amer) 98, Glucose 106 H D, Calcium 8.2 L, Total Bilirubin 0.4, AST 243 H, ALT 357 H*, Alkaline Phosphatase 91, Total Protein 5.5 L, Albumin 3.2 L D, Globulin 2.3, Albumin/Globulin Ratio 1.4 Temp Pulse Resp BP Pulse Ox O2 Del Method FiO2 97.9 F 75 18 117/80 97 Mechanical Ventilation 100 05/23/24 12:50 05/23/24 12:50 05/23/24 12:50 05/23/24 12:50 05/23/24 12:50 05/23/24 12:50 05/23/24 10:27 Laboratory Results - last 24 hr 05/23/24 08:57: WBC 9.2, RBC 3.55 L, Hgb 11.7 L, Hct 39.3, MCV 110.9 H, MCH 33.0 H, MCHC 29.8 L, RDW 13.4, Plt Count 302, MPV 8.4, Neut % (Auto) 82.2 H, Lymph % (Auto) 9.9 L, [place] % (Auto) 6.9, Eos % (Auto) 0.4, Baso % (Auto) 0.7, Neut # (Auto) 7.6, Lymph # (Auto) 0.9, [place] # (Auto) 0.6, Eos # (Auto) 0.0, Baso # (Auto) 0.1, Sodium 141, Potassium 5.7 H, Chloride 95 L, Carbon Dioxide 25, Anion Gap 26.7 H, BUN 28 H, Creatinine 0.70, Estimated Creat Clear 29, Estimated GFR 81, Est GFR ( Amer) 98, Glucose 57 L, Calcium 9.1, Magnesium 1.5 L, Total Bilirubin 1.3, AST 230 H, ALT 175 H, Alkaline Phosphatase 94, Total Creatine Kinase 85, Troponin I 0.20 H, NT-Pro-B Natriuret Pep 92567 H, Total Protein 6.6, Albumin 4.0, Globulin 2.6, Albumin/Globulin Ratio 1.5, Lipase 89, Salicylates < 1.0 L, Acetaminophen < 10 L, Plasma/Serum Alcohol < 10 05/23/24 09:11: Urine Color Yellow, Urine Appearance Clear, Urine pH 6.0, Ur Specific [place] >= 1.030, Urine Protein 1+ A, Urine Glucose (UA) Negative, Urine Ketones Negative, Urine Blood Negative, Urine Nitrate Negative, Urine Bilirubin 1+ A, Urine Urobilinogen 4.0, Ur Leukocyte Esterase Negative, Urine RBC Occasional, Urine WBC Occasional, Ur Squamous Epith Cells Occasional, Urine Bacteria None, Urine Opiates Screen Negative, Urine Methadone Screen Negative, Ur Barbituates Screen Negative, Ur Phencyclidine Scrn Negative, Ur Amphetamines Screen Negative, U Benzodiazepines Scrn Negative, Urine Cocaine Screen Negative, U Marijuana (THC) Screen Negative 05/23/24 09:42: Specimen Source [place], O2 % 100%, ABG pH 7.28 L, ABG pCO2 47.3 H, ABG pO2 67.0 L, ABG HCO3 21.5 L, ABG Total CO2 22.9 L, ABG O2 Saturation 89 L , ABG Base Excess -5.3 L, ABG Sodium 138, ABG Potassium 4.6, ABG Chloride 99, ABG Lactate 8.5 H, Vent Rate 18, Tidal Volume 320, PEEP 5, Arterial Blood Potassium 4.6, Arterial Blood Chloride 99 05/23/24 11:10: HIV 1&2 Antibody Rapid Nonreactive 05/23/24 11:25: Specimen Source [place], O2 % 100, ABG pH 7.31 L, ABG pCO2 47.4 H, ABG pO2 70.6 L, ABG HCO3 23.4, ABG Total CO2 24.9, ABG O2 Saturation 92, ABG Base Excess -2.8 L, ABG Lactate 4.3 H, Vent Rate 18, Tidal Volume 320, PEEP 10 05/23/24 : TSH 0.25 L, Thyroxine (T4) 11.1 H I & O for Labs for Last 24 Hours: Intake & Output 05/21/24 05/22/24 05/23/24 05/24/24 23:59 23:59 23:59 23:59 Intake Total 1236.030 / 1311.030 578.726 / 578.726 Output Total 1350 / 1375 135 / 135 Balance -113.970 / -63.970 443.726 / 443.726 Weight 86 lb 85 lb 15.684 oz Intake & Output 05/20/24 05/21/24 05/22/24 05/23/24 23:59 23:59 23:59 23:59 Output Total 700 / 700 Balance -700 / -700 Weight 86 lb Microbiology Reports for the Last 24 Hours: Microbiology 05/23/24 09:05 Sputum - Endotracheal Tube Aspirate Gram Stain - Preliminary Constitutional: Present severe distress Comment:: Intubated and Sedated Head: Present normocephalic and atraumatic ENT: Present normal exam, normal oropharynx and mucous membranes moist Neck: Present normal inspection and full ROM Respiratory: Present prolonged expiratory phase, respiratory distress and diminished air movement; Absent wheezes, crackles or able to speak in complete sentences Cardiac: Present S1/S2, Tachycardia and radial pulses present GI: Present soft and distention; Absent tenderness or guarding Rectal (female): Present deferred (female): Present deferred Skin: Present intact; Absent cyanosis or jaundice Neuro: Present awake; Absent alert or oriented x 3 Comment:: Intubated Extremities: Present normal inspection; Absent clubbing or cyanosis Assessment and Plan *Assessment and plan (1) Acute and chronic respiratory failure with hypoxia: Status: Acute Category: Medical Code(s): J96.21 - Acute and chronic respiratory failure with hypoxia (2) On mechanically assisted ventilation: Status: Acute Category: Medical Code(s): Z99.11 - Dependence on respirator [ventilator] status Plan Much of the history is obtained from chart review and patient family greater than sedated. Ms. Rodríguez is a 78-year-old female greater than [id number] smoking history last month around 1999 because of diagnosis of COPD chronic hypoxic respiratory failure on 3 to 4 L oxygen supplementation at baseline, CAD status post stenting was found to be altered and lethargic when family presented to house this morning and was brought to the ER for further evaluation and management. Patient family states that she was fine yesterday evening before the daughter left to work. Patient upon presentation visitor were found to be hypotensive and hypothermic. Warming blankets applied. Hemodynamics improved after volume resuscitation. No need for vasopressor support. Patient was also given steroids given hypothermia upon presentation pending TSH and T4. Afebrile. Hemodynamically stable. No evidence of leukocytosis. CT chest NO evidence of pulmonary embolism. Diffuse centrilobular emphysematous changes. No Consolidative/airspace disease noted. No effusion/groundglass opacities noted. ABG upon admission mixed metabolic and respiratory acidosis. BNP significantly elevated. Intralipid: No acute respiratory vents overnight. Plan: On SBT this morning. Tolerating well. Following commands. Post SBT ABG concerning for mild hypercarbia with a pH of 7.33 and pCO2 of 63.8. No significant wheezing noted on auscultation. Extubated to BiPAP at 12/6 with a rate of 18. DuoNebs every 6 hours along with Pulmicort every 12 scheduled Ceftriaxone azithromycin pending culture results Lasix 20 mg IV once Hemodynamically stable. Follow-up blood cultures. Echo normal EF. RV Dilated with hypokinesis. CT no evidence of pulmonary embolism. No need for levothyroxine. TSH low and T4 high from labs yesterday. Abdomen soft nondistended Adequate urine output. Renally dose medications. - Continue mechanical ventilatory support - Continue AnalgoSedation with Propofol and Fentanyl with CPOT gal less than or euqal to 2 and RASS goal of to 2 (No need for deep sedation) - VAP bundle Recommend elevate head of the bed at 30 to 45 degrees Recommend oral care with chlorhexidne Recommend GI ulcer prophylaxis - Famotidine 20mg IV BID Recommend chemical DVT prophylaxis Total critical care time spent on this patient is 35 minutes managing acute hypoxic respiratory failure needing mechanical ventilation. This time spent include reviewing test results including interpreting chest x-rays, labs and arterial blood gas, optimizing the ventilator settings,formulating plan of care, discussing the plan of care with the team and the nursing staff.
--- NOTE | 2024-05-24 09:46 | XR_ITS ---
FINAL REPORT CLINICAL HISTORY: hypoxia COMPARISON: 05/23/2024 FINDINGS: SINGLE-VIEW CHEST The heart size is normal. The mediastinum is normal. Endotracheal tube tip terminates 4.8 cm superior to the reginald. NG tube tip lies off the inferior margin of the film. The lungs are hyperinflated. There is mild airspace opacity at the right base, more evident than previous. Findings probably due to developing pneumonia. There is no pneumothorax. IMPRESSION: Airspace opacity at right base, probably due to developing pneumonia. Reviewed, Interpreted and Dictated by Enzo Harrell MD Transcribed by Nita Nichols Authenticated and [facility]
[2024-05-24] MEDS: ENOXAPARIN 30MG/0.3ML SYRINGE 30 MG SQ (09:57)
[2024-05-24] MEDS: PIPERCILLIN/TAZO 3.375 GM in 0.9 % SODIUM CHLORIDE 50 ML IV ×2 (09:57→17:27)
--- NOTE | 2024-05-24 10:20 | HMH.ITSTN ---
Spoke with JUAN F Farmer this morning, patient is still on the vent. Unable to do MRI until patient is off the vent and stable. RN is aware and will let MRI know of changes.
[2024-05-24 10:45] LABS: ABG Base Excess 7.3 mmol/L (-2.4-2.3); ABG HCO3 33.2 mmhg (22.0-26.0); ABG Oxygen Saturation 97 % (90-100); ABG PH 7.33 mmol/L (7.35-7.45); ABG PO2 100.6 mmhg (80-100); ABG TCO2 35.1 mmhg (23-27)
[2024-05-24 10:49] LABS: Oxygen 50 %; PEEP 5; Pressure Support 5; Source A-LINE
[2024-05-24 10:50] LABS: ABG PCO2 63.8 mmhg (35.0-45.0)
--- NOTE | 2024-05-24 11:24 | PC.NURSE ---
pt extubated by RT at 1125. extubated to bipap at this time.
[2024-05-24] MEDS: VANCOMYCIN HCL 750 MG in 0.9 % SODIUM CHLORIDE 250 ML 125 MG IV (11:53)
[2024-05-24] MEDS: FUROSEMIDE 20 MG/2 ML VIAL IV (11:54)
--- NOTE | 2024-05-24 12:16 | EXP.CARD.PN ---
Subjective Subjective Date: 05/24/24 Time: 10:00 Principal diagnosis: MOF Interval history: Remarkable improvement overnight. Patient is awake and responsive. Temp restored to normal, all vitals are within range this morning. She is on spontaneous breathing trial. Workup largely benign aside from elevated T4. Echo showed normal LV function but severe RV dilation and dysfunction likely secondary to chronic respiratory failure. CT significant for severe emphysema. Exam Data for Last 24 hours Vital signs and Labs for Last 24 Hours: Temp Pulse Resp BP Pulse Ox O2 Del Method FiO2 98.6 F 97 H 16 115/75 96 Mechanical Ventilation 40 05/24/24 08:00 05/24/24 11:18 05/24/24 09:40 05/24/24 08:00 05/24/24 11:25 05/24/24 11:00 05/24/24 11:25 Laboratory Results - last 24 hr 05/23/24 08:57: Salicylates < 1.0 L, Acetaminophen < 10 L, Plasma/Serum Alcohol < 10 05/23/24 09:11: Urine Opiates Screen Negative, Urine Methadone Screen Negative, Ur Barbituates Screen Negative, Ur Phencyclidine Scrn Negative, Ur Amphetamines Screen Negative, U Benzodiazepines Scrn Negative, Urine Cocaine Screen Negative, U Marijuana (THC) Screen Negative 05/23/24 16:30: Lactate 1.3, Troponin I 0.28 H 05/23/24 : Troponin I 0.20 H, TSH 0.25 L, Thyroxine (T4) 11.1 H 05/24/24 06:20: WBC 18.6 H D, RBC 3.30 L, Hgb 10.9 L, Hct 34.7 L, MCV 105.3 H, MCH 33.0 H, MCHC 31.3 L, RDW 13.4, Plt Count 217 D, MPV 10.0, Neut % (Auto) 81.9 H, Lymph % (Auto) 10.9, [place] % (Auto) 6.9, Eos % (Auto) 0.0 L, Baso % (Auto) 0.3, Neut # (Auto) 15.2 H, Lymph # (Auto) 2.0, [place] # (Auto) 1.3 H, Eos # (Auto) 0.0, Baso # (Auto) 0.1, Total Counted 100, Neutrophils % (Manual) 87 H, Lymphocytes % (Manual) 10, Monocytes % (Manual) 3, Platelet Estimate Normal, Macrocytosis 2+, Sodium 136, Potassium 4.6, Chloride 96 L, Carbon Dioxide 37 H, Anion Gap 7.6, BUN 39 H D, Creatinine 0.70, Estimated Creat Clear 29, Estimated GFR 81, Est GFR ( Amer) 98, Glucose 106 H D, Calcium 8.2 L, Total Bilirubin 0.4, AST 243 H, ALT 357 H*, Alkaline Phosphatase 91, Total Protein 5.5 L, Albumin 3.2 L D, Globulin 2.3, Albumin/Globulin Ratio 1.4 05/24/24 10:43: Specimen Source [place], O2 % 50, ABG pH 7.33 L, ABG pCO2 63.8 H, ABG pO2 100.6 H, ABG HCO3 33.2 H, ABG Total CO2 35.1 H, ABG O2 Saturation 97, ABG Base Excess 7.3 H, Neptali Test N/a, PEEP 5 I & O for Last 24 hours: Intake & Output 05/21/24 05/22/24 05/23/24 05/24/24 23:59 23:59 23:59 23:59 Intake Total 1236.030 / 7930.078 7799.994 / 1773.994 Output Total 1350 / 1375 250 / 250 Balance -113.970 / -63.970 1523.994 / 1523.994 Weight 86 lb 85 lb 15.684 oz Microbiology Reports for the Last 24 Hours: Microbiology 05/23/24 11:10 Blood Blood Culture - Preliminary NO GROWTH AFTER 24 HOURS 05/23/24 09:05 Sputum - Endotracheal Tube Aspirate Gram Stain - Final 05/23/24 09:05 Sputum - Endotracheal Tube Aspirate Sputum Culture - Preliminary Constitutional Constitutional: no acute distress, cachectic and cooperative *Routine HEENT Exam Eye: Present PERRL *Routine Respiratory Exam Respiratory: Present CTA bilaterally; Absent accessory muscle use, wheezes or crackles Comments: Intubated, awake *Routine Cardiovascular Exam Cardiovascular: Present RRR, Normal S1 and Normal S2; Absent murmur, gallop or rubs *Routine Abdominal Exam Abdominal: Present soft; Absent tenderness *Routine Extremities Exam Extremities: Present pulses intact; Absent cyanosis or edema *Routine Skin Exam Skin: Present intact; Absent erythema or wounds *Routine Neurological Exam Neurological: Present alert and oriented X3 Routine Psychiatric Exam Psychiatric: Present cooperative Progress Note: A&P Assessment and plan (1) Acute and chronic respiratory failure with hypoxia: Status: Acute (2) On mechanically assisted ventilation: Status: Acute (3) Adrenal hyperplasia: Status: Acute (4) Acidosis, lactic: Status: Acute (5) COPD exacerbation: Status: Acute (6) Cachexia: Status: Acute (7) Multiorgan failure: Status: Acute Assessment and Plan Assessment and Plan for All Diagnoses:: Multiorgan failure - on arrival - O2 20% Temp 90F, Rising Troponin, LFTs, AMS - Broad Differential, workup in process - Consider CV etiology EKG: SR without ischemic changes Trop: 0.[address] Chest: Neg for PE, pos for severe emphsema ECHO: Normal LV function, moderate RV dilation with severe reduction in RV function, moderate RA dilation. - Continue Telemetry Monitoring - UA negative 05/24 Improving on all fronts Anoxic Brain Injury - pt found down in position with O2 20% and temp 90F - Lactic 8 - CT head negative for acute findings - 05/24 Patient is awake and responsive CAD s/p TRACEY 06/2023 - Trop 0.2 - No recent complaints of CP per family - EKG: SR without ischemia - ECHO: EF normal but now has severe RV dysfunction compared with last year - [facility] 06/2023: LAD stented, RCA mild-moderate prox RCA dz - 05/24 Resume ASA, Plavix, Statin once she can take PO meds - consider predischarge [facility] LVH - LVH 1.4cm 06/2023 on ECHO but pt did not f/u for HOCM evaluation -monitor for VT Acute on Chronic Hypoxic Resp Failure - 3.5L/min baseline - O2 20% and Temp 90F on arrival - CT chest pending - Nml WBC Hypotension - fluid resusc in process
[2024-05-24] MEDS: CLOPIDOGREL 75MG TAB 75 MG PO (13:33)
[2024-05-24] MEDS: ASPIRIN EC 81MG TABLET 81 MG PO (13:33)
[2024-05-24 13:54] LABS: ABG Oxygen Saturation 93 % (90-100); ABG PH 7.39 mmol/L (7.35-7.45); ABG PO2 69.5 mmhg (80-100); ABG TCO2 37.9 mmhg (23-27)
[2024-05-24 14:01] LABS: Oxygen 40% %; Source A LINE
[2024-05-24 14:02] LABS: Lactate Arterial 1.5 mmol/L (0.4-2.0)
--- NOTE | 2024-05-24 14:21 | HMH.ITSTN ---
spoke with melva , pt is on bipap, she will update us on when we can scan
[2024-05-24] MEDS: AZITHROMYCIN 500 MG in 0.9 % SODIUM CHLORIDE 250 ML 250 MG IV (16:26)
--- NOTE | 2024-05-24 16:50 | HMH.ITSTN ---
spoke with melva , she stated we will push the mri back to tomorrow, left note for multi craft maintenance technician to call back tomorrow.
[2024-05-24] MEDS: ACETAMINOPHEN 1,000MG/100ML VIAL 1000 MG IV (20:11)
[2024-05-24] MEDS: SODIUM CHLORIDE 0.9% 10ML VIAL 10 ML IV (20:12)
[2024-05-24] MEDS: PANTOPRAZOLE 40MG VIAL 40 MG IV (20:12)
--- NOTE | 2024-05-24 21:28 | P.PN_ITS ---
Subjective *Date: 05/25/24 *Time: 12:00 Interval history: Patient is intubated and sedated. Plan to extubate today. Exam Data for Last 24 hours Vital signs and Labs for Last 24 Hours: Temp Pulse Resp BP Pulse Ox O2 Del Method O2 Flow Rate 99 F 100 H 21 135/73 94 L Nasal Cannula 4 05/24/24 20:41 05/24/24 20:41 05/24/24 20:41 05/24/24 20:00 05/24/24 20:41 05/24/24 20:41 05/24/24 20:41 FiO2 40 05/24/24 21:00 Laboratory Results - last 24 hr 05/24/24 06:20: WBC 18.6 H D, RBC 3.30 L, Hgb 10.9 L, Hct 34.7 L, MCV 105.3 H, MCH 33.0 H, MCHC 31.3 L, RDW 13.4, Plt Count 217 D, MPV 10.0, Neut % (Auto) 81.9 H, Lymph % (Auto) 10.9, [place] % (Auto) 6.9, Eos % (Auto) 0.0 L, Baso % (Auto) 0.3, Neut # (Auto) 15.2 H, Lymph # (Auto) 2.0, [place] # (Auto) 1.3 H, Eos # (Auto) 0.0, Baso # (Auto) 0.1, Total Counted 100, Neutrophils % (Manual) 87 H, Lymphocytes % (Manual) 10, Monocytes % (Manual) 3, Platelet Estimate Normal, Macrocytosis 2+, Sodium 136, Potassium 4.6, Chloride 96 L, Carbon Dioxide 37 H, Anion Gap 7.6, BUN 39 H D, Creatinine 0.70, Estimated Creat Clear 29, Estimated GFR 81, Est GFR ( Amer) 98, Glucose 106 H D, Calcium 8.2 L, Total Bilirubin 0.4, AST 243 H, ALT 357 H*, Alkaline Phosphatase 91, Total Protein 5.5 L, Albumin 3.2 L D, Globulin 2.3, Albumin/Globulin Ratio 1.4 05/24/24 10:43: Specimen Source [place], O2 % 50, ABG pH 7.33 L, ABG pCO2 63.8 H, ABG pO2 100.6 H, ABG HCO3 33.2 H, ABG Total CO2 35.1 H, ABG O2 Saturation 97, ABG Base Excess 7.3 H, Neptali Test N/a, PEEP 5 05/24/24 13:30: Specimen Source [place], O2 % 40%, ABG pH 7.39, ABG pCO2 61.0 H, ABG pO2 69.5 L, ABG HCO3 36.0 H, ABG Total CO2 37.9 H, ABG O2 Saturation 93, ABG Base Excess 11.0 H, ABG Lactate 1.5, Tidal Volume 12/6 I & O for Last 24 hours: Intake & Output 05/21/24 05/22/24 05/23/24 05/24/24 23:59 23:59 23:59 23:59 Intake Total 1236.030 / 1341.445 1564.994 / 2418.994 Output Total 1350 / 1375 1860 / 1860 Balance -113.970 / -63.970 558.994 / 558.994 Weight 39.009 kg 39 kg Microbiology Reports for the Last 24 Hours: Microbiology 05/23/24 Unknown Blood Blood Culture - Preliminary NO GROWTH AFTER 24 HOURS 05/23/24 11:10 Blood Blood Culture - Preliminary NO GROWTH AFTER 24 HOURS 05/23/24 09:05 Sputum - Endotracheal Tube Aspirate Gram Stain - Final 05/23/24 09:05 Sputum - Endotracheal Tube Aspirate Sputum Culture - Preliminary Constitutional Constitutional: no acute distress Comments: intubated and sedated *Routine HEENT Exam Head: Present normocephalic Eye: Present EOMI and PERRL ENT: Present mucous membranes moist *Routine Neck Exam Neck: Present supple; Absent lymphadenopathy *Routine Respiratory Exam Respiratory: Present CTA bilaterally *Routine Cardiovascular Exam Cardiovascular: Present RRR *Routine Abdominal Exam Abdominal: Present soft and normoactive bowel sounds; Absent tenderness *Routine Extremities Exam Extremities: Absent cyanosis, clubbing or edema *Routine Skin Exam Skin: Present warm; Absent rash Assessment and Plan *Assessment and plan (1) On mechanically assisted ventilation: Status: Acute Category: Medical Code(s): Z99.11 - Dependence on respirator [ventilator] status Plan Patient is a 78-year-old female with a medical history significant for COPD, hypertension, CAD s/p stent who presented to the ED via EMS after she was found to be unresponsive at home. Per daughter who was at bedside, she states patient became more weak, slurring speech over the course of the day at which point she was ultimately found to be unresponsive at home. On arrival, patient was hypotensive, hypothermic, and very minimal breath sounds (GCS) and decision was made to rapid sequence intubate patient. Workup significant for ABG pH 7.31, pCO2 47.4, potassium 5.7, magnesium 1.5, AST/ALT 230/175, troponin 0.2, BNP 99664, TSH low 0.25, T4 normal high 11.1. CT abdomen/pelvis revealed bilateral adrenal gland hyperplasia. CTA chest, head/neck CTA did not find reveal acute findings. ECHO does show increased LV wall thickness, LVEF 55%, normal systolic function. Case discussed with the ED provider and decision was made to admit patient for acute encephalopathy of unknown cause requiring mechanical intubation as patient had very poor breath sounds. #Acute encephalopathy, unknown etiology, resolved #? Anoxic brain injury #Hypotension, resolved #Hypothermia, resolved ? She was reportedly found to be unresponsive with oxygen saturating 20%. Per family, she was normal about 1 days ago. ? She was also hypotensive, and hypothermic on arrival and both resolved with fluid resuscitation and warming blankets. ? Initial workup including CTA chest, head/neck did not reveal acute findings. CT abdomen/pelvis did reveal bilateral adrenal gland hyperplasia. UDS unremarkable. - Patient extubated today, and transitioned to intermittent Bipap with good tolerance. Alert and responding to commands. COnversational. ? TSH low 0.25, T4 high normal 11.1. ? Plan for brain MRI to evaluate for CVA, anoxic brain injury. ? WBC increased to 18 today, started Vancomycin. Continue ceftriaxone, azithromycin for now. #Elevated BNP, troponin ? Initial BNP 15,200, troponin 0.28?0.2. ? No signs of fluid overload at this time. Chest pain-free. EKG does not show acute ischemic findings. - However, ECHO revealed severe RV systolic dysfunction. - Cardiology consulted and following, plan for [facility] tomorrow. #Abnormal thyroid function test ? TSH low 0.25, T4 high normal 11.1 indicating possible primary hyperthyroidism. ? Follow-up thyroid ultrasound. CODE STATUS: Full code DVT prophylaxis: Lovenox 30 mg
[2024-05-25] VITALS (30 sets, daily range): BP systolic 128–185; BP diastolic 73–117; PULSE 74–97; RESP 18–28; TEMP 37–37.6; O2SAT 82–100; BMI 17.4; BMI 17.5
[2024-05-25] MEDS: PIPERCILLIN/TAZO 3.375 GM in 0.9 % SODIUM CHLORIDE 50 ML IV ×3 (00:26→16:56)
[2024-05-25 05:22] LABS: HCV Ab Non Reactive (Non Reactive)
--- NOTE | 2024-05-25 06:05 | PC.NURSE ---
Patient had no acute changes throughout shift. She tolerated wearing her BiPAP while asleep. She is back on her baseline 4L/NC this morning. Adequate urinary output via vance. Heart, lung, and abdominal sounds WNL. NAD otherwise, VSS.
[2024-05-25] MEDS: IPRATROPIUM/ALBUTEROL 3 ML NEB IH ×3 (06:23→18:07)
[2024-05-25] MEDS: BUDESONIDE 0.5MG/2ML NEB 0.5 MG IH (06:23)
[2024-05-25 06:57] LABS: Albumin Level 2.9 g/dl (3.5-5.0); Chloride 93 mmol/L (98-107)
[2024-05-25 06:58] LABS: Potassium 3.7 mmoL/L (3.5-5.1); Sodium 135 mmol/L (136-145)
[2024-05-25 07:00] LABS: Alanine Aminotransferase 235 U/L (12-78); Anion Gap 5.7 mEq/L (5-15); Aspartate Amino Transferase 96 U/L (14-36); Blood Urea Nitrogen 29 mg/dl (7-17); Carbon Dioxide 40 mmol/L (22.0-30.0); Creatinine Clearance Estimated 30 mL/min (50-200); Estimated Glomerular Filt Rate 97 ml/min (>60); GFR (African American) 117 ML/MIN (>60)
--- NOTE | 2024-05-25 07:00 | MR_ITS ---
FINAL REPORT CLINICAL HISTORY: Evaluate for stroke, anoxic brain injury post extubation FINDINGS: Multi planar MR imaging was obtained through the brain without contrast. The midline structures appear intact. There is diffuse atrophy. There is extensive abnormal signal in the periventricular and subcortical white matter bilaterally. There is a tiny focus of abnormal restricted diffusion in the medial left cerebellar hemisphere but there is no corresponding decreased signal on the ADC map images. The visualized paranasal sinuses demonstrate normal signal voids. The seventh and eighth nerve root complexes are intact. IMPRESSION: Diffuse atrophy and extensive changes of chronic microvascular ischemia. No definite evidence of acute ischemia. Reviewed, Interpreted and Dictated by Enzo Harrell MD Transcribed by Nita Nichols Authenticated and [facility]
[2024-05-25 07:01] LABS: Albumin/Globulin Ratio 1.3 (1.1-1.8); Alkaline Phosphatase 98 U/L (38-126); Bilirubin,Total 0.6 mg/dl (0.2-1.3); Calcium 8.2 mg/dl (8.4-10.2); Globulin 2.2 g/dL (1.3-3.2); Glucose 52 mg/dl (74-100); Total Protein,Serum 5.1 g/dl (6.3-8.2)
[2024-05-25 07:31] LABS: Basophils % 0.4 % (0.1-2.0); Eosinophils # 0.1 K/mm3 (0.0-0.4); Eosinophils % 0.7 % (0.1-12.0); Hematocrit 31.2 % (37.0-47.0); Lymphocytes # 1.5 K/mm3 (0.7-4.5); Lymphocytes % 12.5 % (10-50); Mean Corpuscular HGB Conc 30.9 g/dL (31.8-35.4); Mean Corpuscular Hemoglobin 32.6 pg (27.0-31.2); Mean Corpuscular Volume 105.6 fl (81-99); Mean Platelet Volume 8.3 fl (7.4-10.4); Monocytes # 0.7 K/mm3 (0.1-1.0); Monocytes % 5.9 % (1.7-9.3); Neutrophils # 9.8 K/mm3 (1.8-7.8); Neutrophils % 80.6 % (37.0-80.0); Platelet Count 180 K/mm3 (142-424); Red Blood Count 2.95 M/mm3 (4.20-5.40); Red Cell Distribution Width 13.2 % (11.5-17.5); White Blood Count 12.1 K/mm3 (4.8-10.8)
[2024-05-25 07:59] LABS: Hemoglobin 9.5 g/dL (12.2-16.2)
[2024-05-25] MEDS: CLOPIDOGREL 75MG TAB 75 MG PO (08:35)
[2024-05-25] MEDS: ASPIRIN EC 81MG TABLET 81 MG PO (08:35)
[2024-05-25] MEDS: IRBESARTAN 75MG TABLET 75 MG PO (08:36)
[2024-05-25] MEDS: METOPROLOL SUCCINATE XL 25MG TABLET 25 MG PO (08:36)
[2024-05-25] MEDS: ENOXAPARIN 30MG/0.3ML SYRINGE 30 MG SQ (08:36)
[2024-05-25 09:16] LABS: Free T4 (Free Thyroxine) 1.34 ng/dl (0.78-2.19)
[2024-05-25] MEDS: TIOTROPIUM 18MCG/PUFF INHALER 1 CAP IH (09:22)
[2024-05-25] MEDS: FLUTICASONE/SALMETEROL 500/50MCG DISKUS 1 PUFF IH ×2 (09:22→18:07)
[2024-05-25] MEDS: LACTATED RINGERS 1000ML 1,000 ML 75 ML IV (09:52)
--- NOTE | 2024-05-25 10:07 | EXP.PULM.PN ---
Subjective *Date: 05/25/24 *Time: 11:05 Interval history: Patient admits significant improvement in her respiratory status. Pulmonology Exam Inpatient Vital signs and Labs for Last 24 Hours: Temp Pulse Resp BP Pulse Ox O2 Del Method O2 Flow Rate 99.0 F 88 24 149/78 H 94 L Nasal Cannula 3 05/25/24 09:00 05/25/24 09:00 05/25/24 09:00 05/25/24 09:00 05/25/24 09:03 05/25/24 09:17 05/25/24 09:17 FiO2 40 05/25/24 04:00 Laboratory Results - last 24 hr 05/23/24 16:30: Hepatitis C Antibody Non reactive 05/24/24 10:43: Specimen Source A-line, O2 % 50, ABG pH 7.33 L, ABG pCO2 63.8 H, ABG pO2 100.6 H, ABG HCO3 33.2 H, ABG Total CO2 35.1 H, ABG O2 Saturation 97, ABG Base Excess 7.3 H, Neptali Test N/a, PEEP 5 05/24/24 13:30: Specimen Source A line, O2 % 40%, ABG pH 7.39, ABG pCO2 61.0 H, ABG pO2 69.5 L, ABG HCO3 36.0 H, ABG Total CO2 37.9 H, ABG O2 Saturation 93, ABG Base Excess 11.0 H, ABG Lactate 1.5, Tidal Volume 12/6 05/25/24 05:33: WBC 12.1 H D, RBC 2.95 L, Hgb 9.5 L D, Hct 31.2 L, MCV 105.6 H, MCH 32.6 H, MCHC 30.9 L, RDW 13.2, Plt Count 180, MPV 8.3, Neut % (Auto) 80.6 H, Lymph % (Auto) 12.5, [place] % (Auto) 5.9, Eos % (Auto) 0.7, Baso % (Auto) 0.4, Neut # (Auto) 9.8 H, Lymph # (Auto) 1.5, [place] # (Auto) 0.7, Eos # (Auto) 0.1, Baso # (Auto) 0.0, Sodium 135 L, Potassium 3.7, Chloride 93 L, Carbon Dioxide 40 H, Anion Gap 5.7, BUN 29 H D, Creatinine 0.60, Estimated Creat Clear 30, Estimated GFR 97, Est GFR ( Amer) 117, Glucose 52 L D, Calcium 8.2 L, Total Bilirubin 0.6, AST 96 H D, ALT 235 H D, Alkaline Phosphatase 98, Total Protein 5.1 L, Albumin 2.9 L, Globulin 2.2, Albumin/Globulin Ratio 1.3 05/25/24 08:27: Free T4 1.34 Temp Pulse Resp BP Pulse Ox O2 Del Method FiO2 97.9 F 75 18 117/80 97 Mechanical Ventilation 100 05/23/24 12:50 05/23/24 12:50 05/23/24 12:50 05/23/24 12:50 05/23/24 12:50 05/23/24 12:50 05/23/24 10:27 Laboratory Results - last 24 hr 05/23/24 08:57: WBC 9.2, RBC 3.55 L, Hgb 11.7 L, Hct 39.3, MCV 110.9 H, MCH 33.0 H, MCHC 29.8 L, RDW 13.4, Plt Count 302, MPV 8.4, Neut % (Auto) 82.2 H, Lymph % (Auto) 9.9 L, S[place]ent % (Auto) 6.9, Eos % (Auto) 0.4, Baso % (Auto) 0.7, Neut # (Auto) 7.6, Lymph # (Auto) 0.9, [place]ent # (Auto) 0.6, Eos # (Auto) 0.0, Baso # (Auto) 0.1, Sodium 141, Potassium 5.7 H, Chloride 95 L, Carbon Dioxide 25, Anion Gap 26.7 H, BUN 28 H, Creatinine 0.70, Estimated Creat Clear 29, Estimated GFR 81, Est GFR ( Amer) 98, Glucose 57 L, Calcium 9.1, Magnesium 1.5 L, Total Bilirubin 1.3, AST 230 H, ALT 175 H, Alkaline Phosphatase 94, Total Creatine Kinase 85, Troponin I 0.20 H, NT-Pro-B Natriuret Pep 12968 H, Total Protein 6.6, Albumin 4.0, Globulin 2.6, Albumin/Globulin Ratio 1.5, Lipase 89, Salicylates < 1.0 L, Acetaminophen < 10 L, Plasma/Serum Alcohol < 10 05/23/24 09:11: Urine Color Yellow, Urine Appearance Clear, Urine pH 6.0, Ur Specific [place] >= 1.030, Urine Protein 1+ A, Urine Glucose (UA) Negative, Urine Ketones Negative, Urine Blood Negative, Urine Nitrate Negative, Urine Bilirubin 1+ A, Urine Urobilinogen 4.0, Ur Leukocyte Esterase Negative, Urine RBC Occasional, Urine WBC Occasional, Ur Squamous Epith Cells Occasional, Urine Bacteria None, Urine Opiates Screen Negative, Urine Methadone Screen Negative, Ur Barbituates Screen Negative, Ur Phencyclidine Scrn Negative, Ur Amphetamines Screen Negative, U Benzodiazepines Scrn Negative, Urine Cocaine Screen Negative, U Marijuana (THC) Screen Negative 05/23/24 09:42: Specimen Source Artline, O2 % 100%, ABG pH 7.28 L, ABG pCO2 47.3 H, ABG pO2 67.0 L, ABG HCO3 21.5 L, ABG Total CO2 22.9 L, ABG O2 Saturation 89 L, ABG Base Excess -5.3 L, ABG Sodium 138, ABG Potassium 4.6, ABG Chloride 99, ABG Lactate 8.5 H, Vent Rate 18, Tidal Volume 320, PEEP 5, Arterial Blood Potassium 4.6, Arterial Blood Chloride 99 05/23/24 11:10: HIV 1&2 Antibody Rapid Nonreactive 05/23/24 11:25: Specimen Source Karyn, O2 % 100, ABG pH 7.31 L, ABG pCO2 47.4 H, ABG pO2 70.6 L, ABG HCO3 23.4, ABG Total CO2 24.9, ABG O2 Saturation 92, ABG Base Excess -2.8 L, ABG Lactate 4.3 H, Vent Rate 18, Tidal Volume 320, PEEP 10 05/23/24 : TSH 0.25 L, Thyroxine (T4) 11.1 H I & O for Labs for Last 24 Hours: Intake & Output 05/22/24 05/23/24 05/24/24 05/25/24 23:59 23:59 23:59 23:59 Intake Total 1236.030 / 7604.604 6970.994 / 2718.994 818 / 818 Output Total 1350 / 1375 1999 1585 / 1585 Balance -113.970 / -63.970 643.994 / 658.994 -767 / -767 Weight 86 lb 85 lb 15.684 oz 89 lb 4.595 oz Intake & Output 05/20/24 05/21/24 05/22/24 05/23/24 23:59 23:59 23:59 23:59 Output Total 700 / 700 Balance -700 / -700 Weight 86 lb Microbiology Reports for the Last 24 Hours: Microbiology 05/23/24 09:05 Sputum - Endotracheal Tube Aspirate Gram Stain - Final 05/23/24 09:05 Sputum - Endotracheal Tube Aspirate Sputum Culture - Preliminary 05/23/24 Unknown Blood Blood Culture - Preliminary NO GROWTH AFTER 24 HOURS 05/23/24 11:10 Blood Blood Culture - Preliminary NO GROWTH AFTER 24 HOURS Constitutional: Present moderate distress Comment:: Intubated and Sedated Head: Present normocephalic and atraumatic ENT: Present normal exam, normal oropharynx and mucous membranes moist Neck: Present normal inspection and full ROM Respiratory: Present respiratory distress and able to speak in complete sentences; Absent prolonged expiratory phase, wheezes or crackles Cardiac: Present S1/S2, Tachycardia and radial pulses present GI: Present soft and distention; Absent tenderness or guarding Rectal (female): Present deferred (female): Present deferred Skin: Present intact; Absent cyanosis or jaundice Neuro: Present alert, awake and oriented x 3 Extremities: Present normal inspection; Absent clubbing or cyanosis Psychiatric: Present normal affect; Absent suicidal ideation or homicidal ideation Assessment and Plan *Assessment and plan (1) Acute and chronic respiratory failure with hypoxia: Status: Acute Category: Medical Code(s): J96.21 - Acute and chronic respiratory failure with hypoxia (2) On mechanically assisted ventilation: Status: Acute Category: Medical Code(s): Z99.11 - Dependence on respirator [ventilator] status Plan Much of the admission history is obtained from chart review and patient family greater than sedated. Patient today stated that she has not been using her nebulization therapies as recommended as she ran out of treatments 1 to 2 weeks prior to hospital presentation. Ms. Rodríguez is a 78-year-old female greater than [id number] smoking history last month around 1999 because of diagnosis of COPD chronic hypoxic respiratory failure on 3 to 4 L oxygen supplementation at baseline, CAD status post stenting was found to be altered and lethargic when family presented to house this morning and was brought to the ER for further evaluation and management. Patient family states that she was fine yesterday evening before the daughter left to work. Patient upon presentation visitor were found to be hypotensive and hypothermic. Warming blankets applied. Hemodynamics improved after volume resuscitation. No need for vasopressor support. Patient was also given steroids given hypothermia upon presentation pending TSH and T4. Afebrile. Hemodynamically stable. No evidence of leukocytosis. CT chest NO evidence of pulmonary embolism. Diffuse centrilobular emphysematous changes. No Consolidative/airspace disease noted. No effusion/groundglass opacities noted. ABG upon admission mixed metabolic and respiratory acidosis. BNP significantly elevated. Interval update: Patient successfully extubated to BiPAP given concerning for hypercarbic respiratory failure prior to extubation. Has been tolerating BiPAP well overnight. Improving leukocytosis. Chest x-ray 05/24/2022 concerning for new right lower lobe airspace disease. blood cultures no growth so far. Tracheal aspirate gram-positive cocci with 10 to 25 WBC Plan: Antibiotics can be weaned to levofloxacin to complete a total of 5-day course from pulmonary standpoint. Continue home inhalers include Advair 500 along with Spiriva. DuoNebs every 4 hours as needed Incentive spirometry Continue nasal cannula oxygen supplementation to maintain O2 saturation goal of 90% and above No need for BiPAP tonight. Follow-up with [facility] tomorrow morning. # Thank you for involving pulmonary in this patient care. Will continue to follow.
--- NOTE | 2024-05-25 11:39 | HMH.SLDYSPHA ---
Speech & Language Evaluation Speech/Language Dysphagia Evaluation Start: 05/25/24 09:22 Freq: ONCE Status: Active Protocol: Document 05/25/24 11:22 [facility] [email or web address] (Rec: 05/25/24 11:25 [facility] [email or web address] Laptop) Dysphagia Assess/Goals/Plan Assessment Date of Evaluation: 05/25/24 Evaluation Type Initial Certification Assessment/Problems post-extubation protocol per MD order Does Patient Qualify for Service No Qualify/Failure Comment Based on clinical observations made at the bedside, mastication and manipulation of bolus & swallow appear to be WFL, no further skilled speech therapy services are warranted at this time. Recommendations PHYSICIAN CERTIFICATION: The specified therapy services are required, authorized, and reviewed every 30 days. Diet Recommendations Normal Liquid Type Recommendations Normal/Thin SL Swallow Guidelines Alt bite w/sip thru meal, Standard Aspiration Prec. Dysphagia Swallow Precautions/Strategies Sitting Upright (90 deg),Small Bites and Sips,Alternate Liquids/Solids Plan Pt/Guardian verbally ack understanding Yes of dx/prognosis/goals G -code Required No Education Instructions provided Discussed CSE results, diet recommendations, aspiration risk/precautions, and compensatory strategies with pt/her family, nursing, and care management all of which expressed understanding. Pt/Caregiver able to recall information Able to recall/restate Reinforcement needed No Speech & Language HPI History Present Illness Description of Patient Problem Pt extubated 05/24 at 11:25, HYDROPONICS WORKER following post-extubation protocol. Nursing reported she tolerated PO meds well. HYDROPONICS WORKER reviewed chart and obtained following from review, Patient is a 78-year-old female with a medical history significant for COPD, hypertension, CAD s/p stent who presented to the ED via EMS after she was found to be unresponsive at home. Per daughter who was at bedside, she states patient became more weak, slurring speech over the course of the day at which point she was ultimately found to be unresponsive at home. On arrival, patient was hypotensive, hypothermic, and very minimal breath sounds ( GCS) and decision was made to rapid sequence intubate patient. Workup significant for ABG pH 7.31, pCO2 47.4, potassium 5.7, magnesium 1.5, AST/ALT 230/175, troponin 0.2, BNP 14315, TSH low 0.25, T4 normal high 11.1. CT abdomen/ pelvis revealed bilateral adrenal gland hyperplasia. CTA chest, head/neck CTA did not find reveal acute findings . ECHO does show increased LV wall thickness, LVEF 55%, normal systolic function. Case discussed with the ED provider and decision was made to admit patient for acute encephalopathy of unknown cause requiring mechanical intubation. Pt had a recent CXR reporting There is mild airspace opacity at the right base, more evident than previous. Findings probably due to developing pneumonia. Pt/Caregiver Concerns Pt and her family reported no concerns for swallowing or difficulty at meals/with medications prior to admission . Reports of O2 sats baselining between high 80s/ low 90s. Rehab Services Assessed Speech therapy Is this evaluation r/t stroke? No General Information General Current Food Consistancy NPO Dentition Edentulous Oxygen Status Nasal Cannula Patient Orientation Person,Place,Time Ability to Follow Directions Good Communication Ability No Impairment Dysphagia:Food Presentation Evaluation Food Type Pureed,Mechanical Soft,Regular ,Liquid,Pudding Dysphagia Evaluation Summary Pt was seen sitting upright in bed with family present at the bedside. She was A&Ox3 and extensive oral care was provided prior to administering bolus trials. She was given all trials 2-3x to assess for consistency and/ or fatigue. She tolerated all presented bolus trial consistencies well with no overt s/sxs of aspiration. Pt was noted to occassionally hold breath while family was speaking with her and required prompting to breathe. Family reports her O2 sats averaging in high 80s to low 90s in the home environment and that she uses O2 at home. Pt refused to trial regular solids with dentures 2' having no denture glue and so regular solid trials were not attempted. However, she performed well with multiple bites of mechanical soft cookie trials x3. Pt also tolerated thin liquids across a variety of presentations including: ice chips, spoonful of water, open cup/straw sip, and two consecutive sips of a thin liquid from straw and open cup . Across thin liquids, puree, pudding, and mechanical soft trials pt's mastication and manipulation of the bolus, as well as swallowing appear to be WFL. Towards end of trial, family left to go buy denture glue for patient, 2' this and clinical observations, it is recommended that pt be placed on a regular/thin diet during admission at [facility]. HYDROPONICS WORKER will f/u if any concerns arise, but at this time no further skilled speech therapy services are warranted. Stroke Dysphagia Assessment PHYSICIAN CERTIFICATION: I certify the specified therapy services for Luma Rodríguez are required, authorized, and reviewed every 30 days.
--- NOTE | 2024-05-25 11:42 | EXP.CARD.PN ---
Subjective Subjective Date: 05/25/24 Time: 10:00 Principal diagnosis: MOF Interval history: Pt continues to improve. She is extubated and on 3L nasal canula (on 3.5L at home). She denies CP. Feeling near baseline. Exam Data for Last 24 hours Vital signs and Labs for Last 24 Hours: Temp Pulse Resp BP Pulse Ox O2 Del Method O2 Flow Rate 99.0 F 82 26 H 148/84 H 92 L Nasal Cannula 3 05/25/24 09:00 05/25/24 11:15 05/25/24 10:00 05/25/24 10:00 05/25/24 11:15 05/25/24 11:26 05/25/24 11:26 FiO2 40 05/25/24 04:00 Laboratory Results - last 24 hr 05/23/24 16:30: Hepatitis C Antibody Non reactive 05/24/24 13:30: Specimen Source A line, O2 % 40%, ABG pH 7.39, ABG pCO2 61.0 H, ABG pO2 69.5 L, ABG HCO3 36.0 H, ABG Total CO2 37.9 H, ABG O2 Saturation 93, ABG Base Excess 11.0 H, ABG Lactate 1.5, Tidal Volume 12/6 05/25/24 05:33: WBC 12.1 H D, RBC 2.95 L, Hgb 9.5 L D, Hct 31.2 L, MCV 105.6 H, MCH 32.6 H, MCHC 30.9 L, RDW 13.2, Plt Count 180, MPV 8.3, Neut % (Auto) 80.6 H, Lymph % (Auto) 12.5, [place] % (Auto) 5.9, Eos % (Auto) 0.7, Baso % (Auto) 0.4, Neut # (Auto) 9.8 H, Lymph # (Auto) 1.5, [place] # (Auto) 0.7, Eos # (Auto) 0.1, Baso # (Auto) 0.0, Sodium 135 L, Potassium 3.7, Chloride 93 L, Carbon Dioxide 40 H, Anion Gap 5.7, BUN 29 H D, Creatinine 0.60, Estimated Creat Clear 30, Estimated GFR 97, Est GFR ( Amer) 117, Glucose 52 L D, Calcium 8.2 L, Total Bilirubin 0.6, AST 96 H D, ALT 235 H D, Alkaline Phosphatase 98, Total Protein 5.1 L, Albumin 2.9 L, Globulin 2.2, Albumin/Globulin Ratio 1.3 05/25/24 08:27: Free T4 1.34 I & O for Last 24 hours: Intake & Output 05/22/24 05/23/24 05/24/24 05/25/24 23:59 23:59 23:59 23:59 Intake Total 1236.030 / 3481.788 8074.994 / 2718.994 1006 / 1006 Output Total 1350 / 1375 1999 Balance -113.970 / -63.970 643.994 / 658.994 -979 / -979 Weight 86 lb 85 lb 15.684 oz 89 lb 4.595 oz Microbiology Reports for the Last 24 Hours: Microbiology 05/23/24 11:10 Blood Blood Culture - Preliminary NO GROWTH AFTER 48 HOURS 05/23/24 09:05 Sputum - Endotracheal Tube Aspirate Gram Stain - Final 05/23/24 09:05 Sputum - Endotracheal Tube Aspirate Sputum Culture - Preliminary 05/23/24 Unknown Blood Blood Culture - Preliminary NO GROWTH AFTER 24 HOURS Constitutional Constitutional: no acute distress, thin and cooperative *Routine HEENT Exam Eye: Present PERRL *Routine Respiratory Exam Respiratory: Present CTA bilaterally; Absent accessory muscle use, wheezes or crackles *Routine Cardiovascular Exam Cardiovascular: Present RRR, Normal S1 and Normal S2; Absent murmur, gallop or rubs *Routine Abdominal Exam Abdominal: Present soft; Absent tenderness *Routine Extremities Exam Extremities: Present pulses intact; Absent cyanosis or edema *Routine Skin Exam Skin: Present intact; Absent erythema or wounds *Routine Neurological Exam Neurological: Present alert and oriented X3 Routine Psychiatric Exam Psychiatric: Present cooperative Progress Note: A&P Assessment and plan (1) Acute and chronic respiratory failure with hypoxia: Status: Acute (2) On mechanically assisted ventilation: Status: Acute (3) Adrenal hyperplasia: Status: Acute (4) Acidosis, lactic: Status: Acute (5) COPD exacerbation: Status: Acute (6) Cachexia: Status: Acute (7) Multiorgan failure: Status: Acute Assessment and Plan Assessment and Plan for All Diagnoses:: Multiorgan failure - on arrival - O2 20% Temp 90F, Rising Troponin, LFTs, AMS - Broad Differential, workup in process - Consider CV etiology EKG: SR without ischemic changes Trop: 0.[address] Chest: Neg for PE, pos for severe emphsema ECHO: Normal LV function, moderate RV dilation with severe reduction in RV function, moderate RA dilation. - Continue Telemetry Monitoring - UA negative 05/24: Improving on all fronts 05/25: Extubated yesterday, labs and vitals stable. Anoxic Brain Injury - pt found down in position with O2 20% and temp 90F - Lactic 8 - CT head negative for acute findings - 05/24: Patient is awake and responsive - 05/25: MRI Brain pending. Son reports some left facial droop compared to baseline. CAD s/p TRACEY 06/2023 - Trop 0.2 - No recent complaints of CP per family - EKG: SR without ischemia - ECHO: EF normal but now has severe RV dysfunction compared with last year - [facility] 06/2023: LAD stented, RCA mild-moderate prox RCA dz - 05/24 Resume ASA, Plavix, Statin once she can take PO meds - 05/25: Discussed inpatient LHC vs OP LHC/stress. Pt would like to proceed with LHC today. LVH - LVH 1.4cm 06/2023 on ECHO but pt did not f/u for HOCM evaluation - monitor for VT Acute on Chronic Hypoxic Resp Failure - 3.5L/min baseline - O2 20% and Temp 90F on arrival - CT chest neg for acute findings - Nml WBC - 05/25: Pt extubated and on 3L/min Hypotension - fluid resusc in process CV stable, LHC today. Further plans pending results.
--- NOTE | 2024-05-25 11:59 | IR_ITS ---
APPROVED REPORT Patient Location: Inpatient PROCEDURES Left heart catheterization Left ventriculogram Selective coronary angiogram Drug-eluting stent deployment to the proximal dominant right coronary INDICATION Acute non-ST elevation myocardial infarction, New onset right ventricular cardiomyopathy, Coronary artery disease Informed consent was obtained prior to the procedure. COMPLICATIONS NONE Estimated Blood Loss: LESS THAN 10 ML TECHNIQUE One percent lidocaine used to anesthetize the right anterior aspect of the wrist. The right radial artery was accessed via the Seldinger technique. A 6 [place] sheath was placed in the right radial artery. 2.5 mg of Verapamil, 800 mcg of nitroglycerin, 1mg Lidocaine and 5000 U Heparin were given through the arterial sheath. The papa catheter was also used to perform left heart catheterization, left ventriculogram and selective coronary angiogram. At the end of the diagnostic angiogram therapeutic Was administered giving a therapeutic ACT and the guide catheter was placed in the right coronary followed by Choice PT extra-support wire. A 3.5 x 15 mm [place] frontier stent was deployed at 18 taran reducing the stenosis to 0%. CARSON-3 flow was present before and after the procedure. At the end the procedure the apparatus was removed the sheath was removed and hemostasis was achieved using TR banding patient was transferred to the postoperative in stable addition ANGIOGRAPHIC RESULTS The left main artery Normal The left anterior descending artery Has a stent in the proximal to mid segments is widely patent free of in-stent restenosis with excellent proximal distal transitioning The circumflex artery Nondominant with mild luminal irregularities The right coronary artery Large dominant with a proximal hazy 50% stenosis with the distal vessel being widely patent The HARDEN ventriculogram reveals Preserved at 55% The left ventricular end-diastolic pressure 10 to 15 mmHg IMPRESSION Stenosis in the proximal dominant right coronary which is likely the culprit vessel for the acute non-ST elevation myocardial infarction with successful stenting of the LAD reducing lesion to 0% with 1 drug-eluting stent Widely patent stent in the proximal and mid LAD as described above Preserved ejection fraction Normal LVEDP PLAN 1. Dual antiplatelet therapy 2. LDL less than 55 achieved high intensity statin 3. Avoidance of tobacco products 4. Risk factor modification 5. Cardiac rehabilitation 6. Continue treatment for advanced COPD Electronically signed by : Rory Simpson MD 05/25/2024 14:55:10
--- NOTE | 2024-05-25 12:40 | PC.NURSE ---
Addendum entered by Marleny Bender RN 05/25/24 16:00: returned from chemical laboratory scientist at 1520 Addendum entered by Marleny Bender RN 05/25/24 14:22: pt returned from MRI at approx 1312 pt left for chemical laboratory scientist at 1410 Original Note: 1234 pt left floor with radiology staff for MRI
--- NOTE | 2024-05-25 13:37 | HMH.PTEV ---
Physical Therapy Evaluation Rehab PT IP Evaluation Start: 05/25/24 10:35 Freq: ONCE Status: Active Protocol: Document 05/25/24 13:28 CARLOS MANUEL (Rec: 05/25/24 13:37 CARLOS MANUEL [id number]) Subjective/History History History Per H&P: Patient is a 78-year -old female with a medical history significant for COPD, hypertension, CAD s/p stent who presented to the ED via EMS after she was found to be unresponsive at home. Per daughter who was at bedside, she states patient became more weak, slurring speech over the course of the day at which point she was ultimately found to be unresponsive at home. On arrival, patient was hypotensive, hypothermic, and very minimal breath sounds ( GCS) and decision was made to rapid sequence intubate patient. Workup significant for ABG pH 7.31, pCO2 47.4, potassium 5.7, magnesium 1.5, AST/ALT 230/175, troponin 0.2, BNP 75612, TSH low 0.25, T4 normal high 11.1. CT abdomen/ pelvis revealed bilateral adrenal gland hyperplasia. CTA chest, head/neck CTA did not find reveal acute findings . ECHO does show increased LV wall thickness, LVEF 55%, normal systolic function. Case discussed with the ED provider and decision was made to admit patient for acute encephalopathy of unknown cause requiring mechanical intubation Subjective Subjective Pt's daughter in room and clarified history. Pt lives with her daughter and grandchildren in a single- story home with 0 ELIAS. Pt was IND for short distances with ambulation. Pt required her daughter's assistance for cooking, cleaning, and bathing . Pt does not own a RW. Daughter does the driving. Pt has 15/03 care at home. New diagnosis of cancer in past 12 No months? Rehab PT IP Eval Objective Appearance Patient Behavior Appropriate,Cooperative Patient Orientation Person,Place,Situation Difficulty following instructions none Speech Pattern Clear Ambulation Patient Able to Ambulate Yes Ambulation Observation IP General Gait Pattern Observation Narrow Based Gait Ambulation Distance (feet) 15 Ambulation Assistive Device None Ambulation Ability Minimal x 2 (25% assist) Balance Ability to Arise Able, uses arms to help Sitting Balance Steady, safe Standing Balance Unsteady Transfers Bed Transfer Ability Supervision/Stand by Sit to Stand Bed Transfer Ability Contact Guard/Hand Hold Rehab PT IP prob,goals,plan Problems Date of Evaluation: 05/25/24 PT IP Problems Transfers,Gait,Balance,Safety Rehab Potential Rehab Potential Good Equipment Needs Assistive Devices Rolling / Wheeled Walker Plan PT Intervention Plan Transfers,Gait,Balance,Safety, Therapeutic Exercise Other Intervention Plan 1-2 times daily Duration LOS Discharge Goals Bed Transfer Ability Independent Sit to Stand Chair Transfer Ability Independent Ambulation Assistive Device Rolling Walker Ambulation Distance (feet) 20 Discharge Plan PT Discharge Plan Initial physical therapy evaluation performed. Patient presents below baseline at this time in functional mobility, transfers, gait, and strength. Pt would benefit from skilled PT while at [facility] to prevent further functional decline and maximize safety with mobility. Pt safe to d/c home when deemed medically necessary d/t current level of mobility, home set-up, and family support. PT recommending home health PT services to address deficits. Eval Complexity Eval Charge Codes 32384 - High Complexity PHYSICIAN CERTIFICATION: I certify the specified therapy services for Luma Rodríguez are required, authorized, and reviewed every 30 days.
--- NOTE | 2024-05-25 13:50 | HMH.OTEV ---
OT Inpatient Evaluation Rehab OT IP Evaluation Start: 05/25/24 10:35 Freq: ONCE Status: Active Protocol: Document 05/25/24 13:29 [facility] (Rec: 05/25/24 13:50 [facility] [id number]) Rehab OT IP Assessment Subjective History Pt oriented x3 on arrival and agreeable to engage in OT evaluation. Pt admitted to [facility] on 05/23/24 due to acute encephalopathy, GCS less than 3 requiring intubation. Pt history and physical report : Patient is a 78-year-old female with a medical history significant for COPD, hypertension, CAD s/p stent who presented to the ED via EMS after she was found to be unresponsive at home. Per daughter who was at bedside, she states patient became more weak, slurring speech over the course of the day at which point she was ultimately found to be unresponsive at home. On arrival, patient was hypotensive, hypothermic, and very minimal breath sounds ( GCS) and decision was made to rapid sequence intubate patient. Workup significant for ABG pH 7.31, pCO2 47.4, potassium 5.7, magnesium 1.5, AST/ALT 230/175, troponin 0.2, BNP 75300, TSH low 0.25, T4 normal high 11.1. CT abdomen/ pelvis revealed bilateral adrenal gland hyperplasia. CTA chest, head/neck CTA did not find reveal acute findings . ECHO does show increased LV wall thickness, LVEF 55%, normal systolic function. Case discussed with the ED provider and decision was made to admit patient for acute encephalopathy of unknown cause requiring mechanical intubation. Subjective My daughter helps me a lot. Pt's daughter present in room during evaluation. Prior to admission to hospital, pt lived with her daughter and grandchildren. Pt reports that her daughter assists her with bathing, but she is able to dress and toilet independently . Pt is dependent upon daughter for IADLs such as cooking and cleaning. Pt does not have any assistive devices at home for functional transfers and daughter reports that she fatigues quickly. Pt 's daughter reports that she is typically on 4.5L of oxygen . Pt no longer engages in driving as daughter provides transportation. Pt's daughter is home throughout the day and works at night. However, pt's grandchildren are home at night to provide assistance. During evaluation, pt engaged in bed mobility to transition from supine to eob with CGA. Pt then performed sit to stand with min assist. Pt engaged in functional mobility for ~10 feet with min assist. Pt experienced loss of balance twice. Pt demonstrated fair activity tolerance with this task. Pt returned to supine position in bed with min assist. Pt was left resting in bed with call chester and all other needs in reach. Objective Patient Orientation Place,Name,Birthday Right Upper Extremity Gross ROM WFL Left Upper Extremity Gross ROM WFL Bed Mobility bed mobility - supine/sit Assist Level Contact Guard/Hand Hold Transfer Training Sit/Stand Transfer Assist Level Minimal x 1 (25% assist) Decrease in Endurance Yes Rehab OT IP prob,goals,plan Problems Date of Evaluation: 05/25/24 OT IP Problems Bed Mobility,Transfers,Balance ,Self care,Safety Rehab Potential Rehab Potential Good Equipment Needs Assistive Devices Rolling / Wheeled Walker Plan OT intervention Plan Bed Mobility,Transfers,Balance ,Self care,Safety,Therapeutic Exercise OT Plan Frequency Daily Duration LOS Discharge Goals Bed Mobility Ability Standby Assistance Sit to Stand Chair Transfer Ability Contact Guard/Hand Hold Chair Transfer Ability Contact Guard/Hand Hold Chair Transfer Technique Sit to/from Ambulatory Chair Transfer Assistive Devices Rolling Walker Feeding Ability Assist with Tray Set Up Lower Body Dressing Ability Contact Guard Upper Body Dressing Ability Standby Assistance Bathing Ability Maximum Assistance Performing Toilet Hygiene Ability Standby Assistance Overall Commode/Toilet Transfer Ability Standby Assistance Commode/Toilet Transfer Technique Sit to/from Ambulatory Commode/Toilet Transfer Assistive Grab Bars Devices Oral Care Assist Standby Assistance Decrease in Endurance No Discharge Plan OT Discharge Plan Pt will continue to be seen for OT services while at [facility]. Once medically stable, pt could return home living with her daughter and grandchildren with 24/7 assistance. Pt would benefit most from a evaluation to address functional decline. Pt is recommended for a walker to support independence and safety with functional transfers. Continued skilled services are important to improve safety, balance, endurance, ADL independence, and functional transfers to reach [facility]. Eval Complexity Eval Charge Codes 48763 - Moderate Complexity PHYSICIAN CERTIFICATION: I certify the specified therapy services for Luma Rodríguez are required, authorized, and reviewed every 30 days.
[2024-05-25] MEDS: HEPARIN 1,000 UNITS/ML 10ML VIAL (CATH LAB) 10000 UNIT IV ×2 (14:24→14:48)
[2024-05-25] MEDS: VERAPAMIL 2.5MG/ML 2ML VIAL 2.5 MG IV (14:24)
[2024-05-25] MEDS: LIDOCAINE 1% 10ML MDV 20 ML IJ (14:24)
[2024-05-25] MEDS: HEPARIN 1,000 UNITS/500ML NS (CATH LAB) 3000 UNIT IV (14:24)
[2024-05-25] MEDS: 0.9 % SODIUM CHLORIDE 500 ML 25 ML IV (14:24)
[2024-05-25] MEDS: diphenhydrAMINE 50MG/ML VIAL 50 MG IV (14:25)
[2024-05-25] MEDS: NITROGLYCERIN 800MCG/8ML SYR (CATH LAB) 800 MCG IA (14:26)
[2024-05-25] MEDS: FENTANYL 100MCG/2ML VIAL 50 MCG IV (15:04)
[2024-05-25] MEDS: MIDAZOLAM HCL 1MG/1ML 5ML VIAL 1 MG IV (15:04)
[2024-05-25] MEDS: AZITHROMYCIN 500 MG in 0.9 % SODIUM CHLORIDE 250 ML 250 MG IV (15:37)
[2024-05-25] MEDS: IOPAMIDOL-370 (76%);100ML BOTTLE 60 ML IV (16:03)
[2024-05-25 16:07] LABS: CATHL Activated Clotting Time 312 SEC (74-125)
--- NOTE | 2024-05-25 16:13 | PC.NURSE ---
Pt has appeared to have a good day this shift. pt received Speech eval this am, she was approved for regular diet with thin liquids. pt was able to eat a late breakfast before going down with Radiology staff. pt was able to go to MRI for scan which pt tolerated well. pt then went to [facility] for heart cath. pt returned to unit at approx 1530, she tolerated procedure well. pt lung sounds contain faint crackles and scattered rhonchi. bowel sounds are active. pt vance was removed prior to MRI as it was a temp sensing vance that contained metal. pt has had family at bedside throughout the day. nad noted pt is lying in bed with family present. o2 sats are 98% on 3lpm. RR even and non labored.
--- NOTE | 2024-05-25 17:14 | PC.NURSE ---
Addendum entered by Marleny Bender RN 05/25/24 19:15: 1843 radial band removed, area cleaned with chlorhexadine then t/t placed. no hematoma noted Addendum entered by Marleny Bender RN 05/25/24 18:30: 1810 2ml of air removed from radialband. no hematoma or bleeding noted Addendum entered by Marleny Bender RN 05/25/24 18:21: 1725 2ml of air removed from radialband. no hematoma or bleeding noted 1740 2ml of air removed from radialband. no hematoma or bleeding noted 1755 2ml of air removed from radialband. no hematoma or bleeding noted 1810 2ml of air removed from radialband. no hematoma or bleeding noted Original Note: 1655 2ml of air removed from radialband. no hematoma or bleeding noted 1710 2ml of air removed from radialband. no hematoma or bleeding noted
[2024-05-25] MEDS: SODIUM CHLORIDE 0.9% 10ML VIAL 10 ML IV (21:17)
[2024-05-25] MEDS: ATORVASTATIN 40MG TABLET 80 MG PO (21:17)
[2024-05-25] MEDS: PANTOPRAZOLE 40MG VIAL 40 MG IV (21:17)
--- NOTE | 2024-05-25 21:19 | P.PN_ITS ---
Subjective *Date: 05/25/24 *Time: 16:00 Interval history: Patient continues to feel well today. Somnolene after PCI to RCA today. No chest pain, SOB. Exam Data for Last 24 hours Vital signs and Labs for Last 24 Hours: Temp Pulse Resp BP Pulse Ox O2 Del Method O2 Flow Rate 98.8 F 91 H 26 H 181/94 H 94 L Nasal Cannula 4 05/25/24 20:00 05/25/24 19:00 05/25/24 19:00 05/25/24 19:00 05/25/24 19:00 05/25/24 19:00 05/25/24 19:00 FiO2 40 05/25/24 04:00 Laboratory Results - last 24 hr 05/23/24 16:30: Hepatitis C Antibody Non reactive 05/25/24 05:33: WBC 12.1 H D, RBC 2.95 L, Hgb 9.5 L D, Hct 31.2 L, MCV 105.6 H, MCH 32.6 H, MCHC 30.9 L, RDW 13.2, Plt Count 180, MPV 8.3, Neut % (Auto) 80.6 H, Lymph % (Auto) 12.5, [place] % (Auto) 5.9, Eos % (Auto) 0.7, Baso % (Auto) 0.4, Neut # (Auto) 9.8 H, Lymph # (Auto) 1.5, [place] # (Auto) 0.7, Eos # (Auto) 0.1, Baso # (Auto) 0.0, Sodium 135 L, Potassium 3.7, Chloride 93 L, Carbon Dioxide 40 H, Anion Gap 5.7, BUN 29 H D, Creatinine 0.60, Estimated Creat Clear 30, Estimated GFR 97, Est GFR ( Amer) 117, Glucose 52 L D, Calcium 8.2 L, Total Bilirubin 0.6, AST 96 H D, ALT 235 H D, Alkaline Phosphatase 98, Total Protein 5.1 L, Albumin 2.9 L, Globulin 2.2, Albumin/Globulin Ratio 1.3 05/25/24 08:27: Free T4 1.34 05/25/24 14:34: Activated Clotting Time 312 H* I & O for Last 24 hours: Intake & Output 05/22/24 05/23/24 05/24/24 05/25/24 23:59 23:59 23:59 23:59 Intake Total 1236.030 / 0254.878 7197.994 / 2718.994 1633 / 1633 Output Total 1350 / 1375 1999 2385 / 2385 Balance -113.970 / -63.970 643.994 / 658.994 -752 / -752 Weight 39.009 kg 39 kg 40.5 kg Microbiology Reports for the Last 24 Hours: Microbiology 05/23/24 Unknown Blood Blood Culture - Preliminary NO GROWTH AFTER 48 HOURS 05/23/24 11:10 Blood Blood Culture - Preliminary NO GROWTH AFTER 48 HOURS 05/23/24 09:05 Sputum - Endotracheal Tube Aspirate Gram Stain - Final 05/23/24 09:05 Sputum - Endotracheal Tube Aspirate Sputum Culture - Preliminary Constitutional Constitutional: no acute distress *Routine HEENT Exam Head: Present normocephalic Eye: Present EOMI and PERRL ENT: Present mucous membranes moist *Routine Neck Exam Neck: Present supple; Absent lymphadenopathy *Routine Respiratory Exam Respiratory: Present CTA bilaterally *Routine Cardiovascular Exam Cardiovascular: Present RRR *Routine Abdominal Exam Abdominal: Present soft and normoactive bowel sounds; Absent tenderness *Routine Extremities Exam Extremities: Absent cyanosis, clubbing or edema *Routine Skin Exam Skin: Present warm; Absent rash *Routine Neurological Exam Neurological: Present alert and oriented X3 Assessment and Plan *Assessment and plan (1) Coronary artery disease: Status: Chronic Qualifiers: Coronary Disease-Associated Artery/Lesion type: [place] artery [place] vs. transplanted heart: [place] heart Associated angina: without angina Qualified Code(s): I25.10 - Atherosclerotic heart disease of [place] coronary artery without angina pectoris Category: Medical Code(s): I25.10 - Atherosclerotic heart disease of [place] coronary artery without angina pectoris Plan Patient is a 78-year-old female with a medical history significant for COPD, hypertension, CAD s/p stent who presented to the ED via EMS after she was found to be unresponsive at home. Per daughter who was at bedside, she states patient became more weak, slurring speech over the course of the day at which point she was ultimately found to be unresponsive at home. On arrival, patient was hypotensive, hypothermic, and very minimal breath sounds (GCS) and decision was made to rapid sequence intubate patient. Workup significant for ABG pH 7.31, pCO2 47.4, potassium 5.7, magnesium 1.5, AST/ALT 230/175, troponin 0.2, BNP 73987, TSH low 0.25, T4 normal high 11.1. CT abdomen/pelvis revealed bilateral adrenal gland hyperplasia. CTA chest, head/neck CTA did not find reveal acute findings. ECHO does show increased LV wall thickness, LVEF 55%, normal systolic function. Case discussed with the ED provider and decision was made to admit patient for acute encephalopathy of unknown cause requiring mechanical intubation as patient had very poor breath sounds. #Acute encephalopathy, unknown etiology, resolved #? Anoxic brain injury #Community acquired pneumonia #Hypotension, resolved #Hypothermia, resolved ? She was reportedly found to be unresponsive with oxygen saturating 20%. Per family, she was normal about 1 days ago. ? She was also hypotensive, and hypothermic on arrival and both resolved with fluid resuscitation and warming blankets. ? Initial workup including CTA chest, head/neck did not reveal acute findings. CT abdomen/pelvis did reveal bilateral adrenal gland hyperplasia. UDS unremarkable. - Patient extubated 05/24/24, and transitioned to intermittent Bipap with good tolerance. Alert and responding to commands. Conversational. Feels well today. ? MRI did not show acute findings. ? Transitioned to Levofloxicin today, discontinued vancomycin, ceftriaxone, azithromycin. WBC improved to 11 today. - PT/OT consulted, pending recommendations. #Elevated BNP, troponin #Severe RV systolic dysfunction ? Initial BNP 15,200, troponin 0.28?0.2. ? No signs of fluid overload at this time. Chest pain-free. EKG does not show acute ischemic findings. - However, ECHO revealed severe RV systolic dysfunction. - Cardiology consulted and following, PCI today s/p stent to RCA. - aspirin, Plavix, statin. - Continous tele overnight. #Abnormal thyroid function test ? TSH low 0.25, T4 high normal 11.1 indicating possible primary hyperthyroidism. - Free T4 normal, and as such low TSH could be reactive from severe illness on presentation. - Will need repeat TSH in 4 weeks outpatient. ? Follow-up thyroid ultrasound. CODE STATUS: Full code DVT prophylaxis: Lovenox 30 mg
[2024-05-25] MEDS: LEVOFLOXACIN/D5W 750 MG/150 ML 750 MG/150 ML PIGGYBACK 100 MG IV (22:00)
[2024-05-26] VITALS (9 sets, daily range): BP systolic 156–192; BP diastolic 76–113; PULSE 70–86; RESP 16–19; TEMP 36.7–37.8; O2SAT 90–98; BMI 17.5
[2024-05-26] MEDS: PIPERCILLIN/TAZO 3.375 GM in 0.9 % SODIUM CHLORIDE 50 ML IV ×2 (01:32→08:08)
[2024-05-26] MEDS: PHENOL THROAT SPRAY 177 ML BOTTLE MM (02:10)
[2024-05-26] MEDS: IRBESARTAN 75MG TABLET 75 MG PO (05:01)
[2024-05-26] MEDS: METOPROLOL SUCCINATE XL 25MG TABLET 25 MG PO (05:01)
[2024-05-26 06:11] LABS: Basophils # 0.1 K/mm3 (0-0.2); Basophils % 0.7 % (0.1-2.0); Eosinophils # 0.3 K/mm3 (0.0-0.4); Eosinophils % 3.1 % (0.1-12.0); Hematocrit 33.9 % (37.0-47.0); Hemoglobin 10.3 g/dL (12.2-16.2); Lymphocytes # 1.3 K/mm3 (0.7-4.5); Lymphocytes % 12.5 % (10-50); Mean Corpuscular HGB Conc 30.3 g/dL (31.8-35.4); Mean Corpuscular Hemoglobin 32.2 pg (27.0-31.2); Mean Corpuscular Volume 106.2 fl (81-99); Monocytes # 0.7 K/mm3 (0.1-1.0); Monocytes % 6.8 % (1.7-9.3); Neutrophils # 7.9 K/mm3 (1.8-7.8); Neutrophils % 76.8 % (37.0-80.0); Platelet Count 225 K/mm3 (142-424); Red Blood Count 3.19 M/mm3 (4.20-5.40); Red Cell Distribution Width 13.1 % (11.5-17.5); White Blood Count 10.3 K/mm3 (4.8-10.8)
[2024-05-26 06:21] LABS: Albumin Level 3.2 g/dl (3.5-5.0); Chloride 94 mmol/L (98-107); Potassium 3.9 mmoL/L (3.5-5.1); Sodium 137 mmol/L (136-145)
[2024-05-26 06:24] LABS: Alanine Aminotransferase 205 U/L (12-78); Albumin/Globulin Ratio 1.3 (1.1-1.8); Alkaline Phosphatase 88 U/L (38-126); Aspartate Amino Transferase 55 U/L (14-36); Bilirubin,Total 0.6 mg/dl (0.2-1.3); Blood Urea Nitrogen 12 mg/dl (7-17); Creatinine Clearance Estimated 30 mL/min (50-200); Estimated Glomerular Filt Rate 97 ml/min (>60); GFR (African American) 117 ML/MIN (>60); Globulin 2.4 g/dL (1.3-3.2); Total Protein,Serum 5.6 g/dl (6.3-8.2)
[2024-05-26 06:25] LABS: Calcium 8.7 mg/dl (8.4-10.2); Glucose 79 mg/dl (74-100)
[2024-05-26] MEDS: FLUTICASONE/SALMETEROL 500/50MCG DISKUS 1 PUFF IH (06:29)
[2024-05-26] MEDS: IPRATROPIUM/ALBUTEROL 3 ML NEB IH (06:29)
[2024-05-26] MEDS: TIOTROPIUM 18MCG/PUFF INHALER 1 CAP IH (06:29)
[2024-05-26 06:31] LABS: Anion Gap 6.9 mEq/L (5-15); Carbon Dioxide 40 mmol/L (22.0-30.0)
[2024-05-26] MEDS: LABETALOL 20MG/4ML SYRINGE 20 MG IV (06:46)
[2024-05-26] MEDS: LACTATED RINGERS 1000ML 1,000 ML 75 ML IV (06:56)
[2024-05-26] MEDS: CLOPIDOGREL 75MG TAB 75 MG PO (08:09)
[2024-05-26] MEDS: ASPIRIN EC 81MG TABLET 81 MG PO (08:09)
[2024-05-26] MEDS: ACETAMINOPHEN 325MG TAB 650 MG PO (08:09)
[2024-05-26] MEDS: ENOXAPARIN 30MG/0.3ML SYRINGE 30 MG SQ (08:09)
[2024-05-26 08:29] LABS: Lactate Venous 1.1 mmol/L (0.4-2.0); VBG Base Excess 11.6 mmol/L (-2.4-2.3); VBG HCO3 37.5 mmol/L (23-30); VBG Oxygen Saturation 80.2 % (50-70); VBG PH 7.34 mmol/L (7.31-7.41); VBG PO2 44.7 mmol/L (28-40); VBG Total CO2 39.7 mmol/L (23-27)
[2024-05-26 08:36] LABS: VBG PCO2 71.7 mmol/L (35-51)
--- NOTE | 2024-05-26 09:33 | SW/DCPLANNER ---
Addendum entered by Elena Ramon 05/29/24 13:19: [facility] stated that services will start Thursday 05/31 for this patient. Addendum entered by Elena Ramon 05/29/24 09:13: Per [facility] information was never received Wednesday. Patient information/order has been refaxed this AM. Addendum entered by Elena Ramon 05/26/24 13:33: Patient information/order has been faxed to [facility] . Original Note: I spoke w/ this patient regarding plans once medically stable for discharge. PT/OT evaluated patient and recommended home w/ home health services at time of discharge. Patient stated that she resides at home w/ her daughter whom works nights shift. Patient is agreeable to home health services and does not have a preference. Patient also voiced that she will need a rolling walker at time of discharge ([facility]). I will continue to follow up w/ this patient and set up home health services at time of discharge. Discharge date is unknown at this time.
--- NOTE | 2024-05-26 09:54 | EXP.PULM.PN ---
Subjective *Date: 05/26/24 *Time: 11:33 Interval history: No acute respiratory vents overnight. Patient admits improving respiratory status. Continued to complain of cough and productive phlegm. Improving. Pulmonology Exam Inpatient Vital signs and Labs for Last 24 Hours: Temp Pulse Resp BP Pulse Ox O2 Del Method O2 Flow Rate 100.0 F H 76 18 156/76 H 94 L Nasal Cannula 4 05/26/24 08:00 05/26/24 08:00 05/26/24 08:00 05/26/24 08:00 05/26/24 08:00 05/26/24 09:00 05/26/24 09:00 FiO2 40 05/25/24 22:00 Laboratory Results - last 24 hr 05/25/24 14:34: Activated Clotting Time 312 H* 05/26/24 05:57: WBC 10.3, RBC 3.19 L, Hgb 10.3 L, Hct 33.9 L, MCV 106.2 H, MCH 32.2 H, MCHC 30.3 L, RDW 13.1, Plt Count 225, MPV 8.0, Neut % (Auto) 76.8, Lymph % (Auto) 12.5, [place] % (Auto) 6.8, Eos % (Auto) 3.1, Baso % (Auto) 0.7, Neut # (Auto) 7.9 H, Lymph # (Auto) 1.3, [place] # (Auto) 0.7, Eos # (Auto) 0.3, Baso # (Auto) 0.1, Sodium 137, Potassium 3.9, Chloride 94 L, Carbon Dioxide 40 H, Anion Gap 6.9, BUN 12 D, Creatinine 0.60, Estimated Creat Clear 30, Estimated GFR 97, Est GFR ( Amer) 117, Glucose 79, Calcium 8.7, Total Bilirubin 0.6, AST 55 H D, ALT 205 H, Alkaline Phosphatase 88, Total Protein 5.6 L, Albumin 3.2 L D, Globulin 2.4, Albumin/Globulin Ratio 1.3 05/26/24 08:25: VBG pH 7.34, VBG pCO2 71.7 H, VBG pO2 44.7 H, VBG HCO3 37.5 H, VBG Total CO2 39.7 H, VBG O2 Saturation 80.2 H, VBG Base Excess 11.6 H, VBG Lactic Acid 1.1 Temp Pulse Resp BP Pulse Ox O2 Del Method FiO2 97.9 F 75 18 117/80 97 Mechanical Ventilation 100 05/23/24 12:50 05/23/24 12:50 05/23/24 12:50 05/23/24 12:50 05/23/24 12:50 05/23/24 12:50 05/23/24 10:27 Laboratory Results - last 24 hr 05/23/24 08:57: WBC 9.2, RBC 3.55 L, Hgb 11.7 L, Hct 39.3, MCV 110.9 H, MCH 33.0 H, MCHC 29.8 L, RDW 13.4, Plt Count 302, MPV 8.4, Neut % (Auto) 82.2 H, Lymph % (Auto) 9.9 L, [place] % (Auto) 6.9, Eos % (Auto) 0.4, Baso % (Auto) 0.7, Neut # (Auto) 7.6, Lymph # (Auto) 0.9, [place] # (Auto) 0.6, Eos # (Auto) 0.0, Baso # (Auto) 0.1, Sodium 141, Potassium 5.7 H, Chloride 95 L, Carbon Dioxide 25, Anion Gap 26.7 H, BUN 28 H, Creatinine 0.70, Estimated Creat Clear 29, Estimated GFR 81, Est GFR ( Amer) 98, Glucose 57 L, Calcium 9.1, Magnesium 1.5 L, Total Bilirubin 1.3, AST 230 H, ALT 175 H, Alkaline Phosphatase 94, Total Creatine Kinase 85, Troponin I 0.20 H, NT-Pro-B Natriuret Pep 52993 H, Total Protein 6.6, Albumin 4.0, Globulin 2.6, Albumin/Globulin Ratio 1.5, Lipase 89, Salicylates < 1.0 L, Acetaminophen < 10 L, Plasma/Serum Alcohol < 10 05/23/24 09:11: Urine Color Yellow, Urine Appearance Clear, Urine pH 6.0, Ur Specific [place] >= 1.030, Urine Protein 1+ A, Urine Glucose (UA) Negative, Urine Ketones Negative, Urine Blood Negative, Urine Nitrate Negative, Urine Bilirubin 1+ A, Urine Urobilinogen 4.0, Ur Leukocyte Esterase Negative, Urine RBC Occasional, Urine WBC Occasional, Ur Squamous Epith Cells Occasional, Urine Bacteria None, Urine Opiates Screen Negative, Urine Methadone Screen Negative, Ur Barbituates Screen Negative, Ur Phencyclidine Scrn Negative, Ur Amphetamines Screen Negative, U Benzodiazepines Scrn Negative, Urine Cocaine Screen Negative, U Marijuana (THC) Screen Negative 05/23/24 09:42: Specimen Source [place], O2 % 100%, ABG pH 7.28 L, ABG pCO2 47.3 H, ABG pO2 67.0 L, ABG HCO3 21.5 L, ABG Total CO2 22.9 L, ABG O2 Saturation 89 L, ABG Base Excess -5.3 L, ABG Sodium 138, ABG Potassium 4.6, ABG Chloride 99, ABG Lactate 8.5 H, Vent Rate 18, Tidal Volume 320, PEEP 5, Arterial Blood Potassium 4.6, Arterial Blood Chloride 99 05/23/24 11:10: HIV 1&2 Antibody Rapid Nonreactive 05/23/24 11:25: Specimen Source [place], O2 % 100, ABG pH 7.31 L, ABG pCO2 47.4 H, ABG pO2 70.6 L, ABG HCO3 23.4, ABG Total CO2 24.9, ABG O2 Saturation 92, ABG Base Excess -2.8 L, ABG Lactate 4.3 H, Vent Rate 18, Tidal Volume 320, PEEP 10 05/23/24 : TSH 0.25 L, Thyroxine (T4) 11.1 H I & O for Labs for Last 24 Hours: Intake & Output 05/23/24 05/24/24 05/25/24 05/26/24 23:59 23:59 23:59 23:59 Intake Total 1236.030 / 6604.279 4496.994 / 2718.994 1633 / 1783 1313 / 1313 Output Total 1350 / 1375 1999 / 2059 2385 / 2385 0 / 0 Balance -113.970 / -63.970 643.994 / 658.994 -752 / -602 1313 / 1313 Weight 86 lb 85 lb 15.684 oz 89 lb 4.595 oz 89 lb 4.595 oz Intake & Output 05/20/24 05/21/24 05/22/24 05/23/24 23:59 23:59 23:59 23:59 Output Total 700 / 700 Balance -700 / -700 Weight 86 lb Microbiology Reports for the Last 24 Hours: Microbiology 05/23/24 09:05 Sputum - Endotracheal Tube Aspirate Gram Stain - Final 05/23/24 09:05 Sputum - Endotracheal Tube Aspirate Sputum Culture - Preliminary Gram Negative Rods 05/23/24 Unknown Blood Blood Culture - Preliminary NO GROWTH AFTER 48 HOURS 05/23/24 11:10 Blood Blood Culture - Preliminary NO GROWTH AFTER 48 HOURS Constitutional: Present moderate distress Comment:: Intubated and Sedated Head: Present normocephalic and atraumatic ENT: Present normal exam, normal oropharynx and mucous membranes moist Neck: Present normal inspection and full ROM Respiratory: Present respiratory distress, rhonchi, wheezes and able to speak in complete sentences; Absent prolonged expiratory phase or crackles Cardiac: Present S1/S2, Tachycardia and radial pulses present GI: Present soft and distention; Absent tenderness or guarding Rectal (female): Present deferred (female): Present deferred Skin: Present intact; Absent cyanosis or jaundice Neuro: Present alert, awake and oriented x 3 Extremities: Present normal inspection; Absent clubbing or cyanosis Psychiatric: Present normal affect; Absent suicidal ideation or homicidal ideation Assessment and Plan *Assessment and plan (1) Acute and chronic respiratory failure with hypoxia: Status: Acute Category: Medical Code(s): J96.21 - Acute and chronic respiratory failure with hypoxia (2) On mechanically assisted ventilation: Status: Acute Category: Medical Code(s): Z99.11 - Dependence on respirator [ventilator] status (3) Acute on chronic respiratory failure with hypoxia and hypercapnia: Status: Acute Category: Medical Code(s): J96.21 - Acute and chronic respiratory failure with hypoxia; J96.22 - Acute and chronic respiratory failure with hypercapnia (4) Pneumonia: Status: Acute Category: Medical Code(s): J18.9 - Pneumonia, unspecified organism Plan Much of the admission history is obtained from chart review and patient family greater than sedated. Patient stated that she has not been using her nebulization therapies as recommended as she ran out of treatments 1 to 2 weeks prior to hospital presentation. Ms. Rodríguez is a 78-year-old female greater than [id number] smoking history last month around 1999 because of diagnosis of COPD chronic hypoxic respiratory failure on 3 to 4 L oxygen supplementation at baseline, CAD status post stenting was found to be altered and lethargic when family presented to house this morning and was brought to the ER for further evaluation and management. Patient family states that she was fine yesterday evening before the daughter left to work. Patient upon presentation visitor were found to be hypotensive and hypothermic. Warming blankets applied. Hemodynamics improved after volume resuscitation. No need for vasopressor support. Patient was also given steroids given hypothermia upon presentation pending TSH and T4. Afebrile. Hemodynamically stable. No evidence of leukocytosis. CT chest NO evidence of pulmonary embolism. Diffuse centrilobular emphysematous changes. No Consolidative/airspace disease noted. No effusion/groundglass opacities noted. ABG upon admission mixed metabolic and respiratory acidosis. BNP significantly elevated. Patient successfully extubated to BiPAP 05/23/24 given concerning for hypercarbic respiratory failure prior to extubation. Chest x-ray 05/24/2022 concerning for new right lower lobe airspace disease. Interval update: No acute respiratory vents overnight. Stable ox requirements. Worsening hypercarbic respiratory failure overnight off BiPAP. Patient will benefit from BiPAP therapy while asleep given her severe COPD and chronic hypercarbic respiratory failure. Low-grade fevers at 100.0. Continue to receive Zosyn. Improving leukocytosis. Sputum showing gram-negative rods. Auscultation wheezing with rhonchorous breath sounds. Chest x-ray this morning concerning right lower lobe nodular opacity, stable from prior with no worsening. Plan: Antibiotics can be weaned to levofloxacin to complete a total of 7-day course from pulmonary standpoint. Continue home inhalers include Advair 500 along with Spiriva. DuoNebs every 4 hours as needed Continue incentive spirometry Continue nasal cannula oxygen supplementation to maintain O2 saturation goal of 90% and above Continue BiPAP therapy for hypercarbic respiratory failure which is likely from her COPD. Not concerning for sleep apnea at this point of time. BiPAP settings include 6/12 and FiO2 of 35%. Please call pulmonary with any questions or concerns. # Thank you for involving pulmonary in this patient care. Will follow the patient in pulmonary clinic 1 week postdischarge.
--- NOTE | 2024-05-26 09:56 | XR_ITS ---
FINAL REPORT CLINICAL HISTORY: PNM COMPARISON: 05/24/2024 FINDINGS: The patient has been extubated. The heart size is normal. The mediastinum is normal. The lungs are hyperinflated. There are patchy bibasilar airspace infiltrates, more evident than on previous exam. Trace bilateral effusions are noted. The findings are probably due to acute pneumonia or aspiration. There is no pneumothorax. There is no osseous abnormality. IMPRESSION: Probable acute pneumonia or aspiration. Reviewed, Interpreted and Dictated by Enzo Harrell MD Transcribed by Debra Bland Authenticated and [facility]
--- NOTE | 2024-05-26 10:17 | EXP.CARD.PN ---
Subjective Subjective Date: 05/26/24 Time: 09:00 Principal diagnosis: MOF Interval history: LHC yesterday - stent to RCA. Stable overnight No complaints today Exam Data for Last 24 hours Vital signs and Labs for Last 24 Hours: Temp Pulse Resp BP Pulse Ox O2 Del Method O2 Flow Rate 100.0 F H 76 18 156/76 H 94 L Nasal Cannula 4 05/26/24 08:00 05/26/24 08:00 05/26/24 08:00 05/26/24 08:00 05/26/24 08:00 05/26/24 09:00 05/26/24 09:00 FiO2 40 05/25/24 22:00 Laboratory Results - last 24 hr 05/25/24 14:34: Activated Clotting Time 312 H* 05/26/24 05:57: WBC 10.3, RBC 3.19 L, Hgb 10.3 L, Hct 33.9 L, MCV 106.2 H, MCH 32.2 H, MCHC 30.3 L, RDW 13.1, Plt Count 225, MPV 8.0, Neut % (Auto) 76.8, Lymph % (Auto) 12.5, [place] % (Auto) 6.8, Eos % (Auto) 3.1, Baso % (Auto) 0.7, Neut # (Auto) 7.9 H, Lymph # (Auto) 1.3, [place] # (Auto) 0.7, Eos # (Auto) 0.3, Baso # (Auto) 0.1, Sodium 137, Potassium 3.9, Chloride 94 L, Carbon Dioxide 40 H, Anion Gap 6.9, BUN 12 D, Creatinine 0.60, Estimated Creat Clear 30, Estimated GFR 97, Est GFR ( Amer) 117, Glucose 79, Calcium 8.7, Total Bilirubin 0.6, AST 55 H D, ALT 205 H, Alkaline Phosphatase 88, Total Protein 5.6 L, Albumin 3.2 L D, Globulin 2.4, Albumin/Globulin Ratio 1.3 05/26/24 08:25: VBG pH 7.34, VBG pCO2 71.7 H, VBG pO2 44.7 H, VBG HCO3 37.5 H, VBG Total CO2 39.7 H, VBG O2 Saturation 80.2 H, VBG Base Excess 11.6 H, VBG Lactic Acid 1.1 I & O for Last 24 hours: Intake & Output 05/23/24 05/24/24 05/25/24 05/26/24 23:59 23:59 23:59 23:59 Intake Total 1236.030 / 3765.265 7131.994 / 2718.994 1633 / 1783 1313 / 1313 Output Total 1350 / 1375 1999 / 2060 2385 / 2385 0 / 0 Balance -113.970 / -63.970 643.994 / 658.994 -752 / -602 1313 / 1313 Weight 86 lb 85 lb 15.684 oz 89 lb 4.595 oz 89 lb 4.595 oz Microbiology Reports for the Last 24 Hours: Microbiology 05/23/24 09:05 Sputum - Endotracheal Tube Aspirate Gram Stain - Final 05/23/24 09:05 Sputum - Endotracheal Tube Aspirate Sputum Culture - Preliminary Gram Negative Rods 05/23/24 Unknown Blood Blood Culture - Preliminary NO GROWTH AFTER 48 HOURS 05/23/24 11:10 Blood Blood Culture - Preliminary NO GROWTH AFTER 48 HOURS Constitutional Constitutional: no acute distress and cooperative *Routine HEENT Exam Eye: Present PERRL *Routine Respiratory Exam Respiratory: Present CTA bilaterally; Absent accessory muscle use, wheezes or crackles *Routine Cardiovascular Exam Cardiovascular: Present RRR, Normal S1 and Normal S2; Absent murmur, gallop or rubs *Routine Abdominal Exam Abdominal: Present soft; Absent tenderness *Routine Extremities Exam Extremities: Present pulses intact; Absent cyanosis or edema *Routine Skin Exam Skin: Present intact; Absent erythema or wounds *Routine Neurological Exam Neurological: Present alert and oriented X3 Routine Psychiatric Exam Psychiatric: Present cooperative Progress Note: A&P Assessment and plan (1) Non-ST elevation GA (NSTEMI): Status: Acute (2) Acute and chronic respiratory failure with hypoxia: Status: Acute (3) On mechanically assisted ventilation: Status: Acute (4) Adrenal hyperplasia: Status: Acute (5) Acidosis, lactic: Status: Acute (6) COPD exacerbation: Status: Acute (7) Cachexia: Status: Acute (8) Multiorgan failure: Status: Acute Assessment and Plan Assessment and Plan for All Diagnoses:: Multiorgan failure - on arrival - O2 20% Temp 90F, Rising Troponin, LFTs, AMS - Broad Differential, workup in process - Consider CV etiology EKG: SR without ischemic changes Trop: 0.[address] Chest: Neg for PE, pos for severe emphsema ECHO: Normal LV function, moderate RV dilation with severe reduction in RV function, moderate RA dilation. - Continue Telemetry Monitoring - UA negative 05/24: Improving on all fronts 05/25: Extubated yesterday, labs and vitals stable. 05/26: Stable Altered Mental Status - resolved - pt found down in position with O2 20% and temp 90F - Lactic 8 - CT head negative for acute findings - 05/24: Patient is awake and responsive - 05/25: MRI Brain pending. Son reports some left facial droop compared to baseline. - 05/26: MRI - Diffuse atrophy and extesnsive changes of chronic microvascular ischemia. No def evidence of acute ischemia NSTEMI 05/23 - know CAD s/p TRACEY 06/2023 - Trop 0.2 - No recent complaints of CP per family - EKG: SR without ischemia - ECHO: EF normal but now has severe RV dysfunction compared with last year - [facility] 06/2023: LAD stented, RCA mild-moderate prox RCA dz - 05/24 Resume ASA, Plavix, Statin once she can take PO meds - 05/25: Discussed inpatient LHC vs OP LHC/stress. Pt would like to proceed with LHC today. - 05/25: RCA Stented yesterday. Cont DAPT, BB, Statin. LVH - LVH 1.4cm 06/2023 on ECHO but pt did not f/u for HOCM evaluation - monitor for VT - pt needs 2 week monitor at dc - we will f/u OP with cardiac MRI Acute on Chronic Hypoxic Resp Failure - 3.5L/min baseline - O2 20% and Temp 90F on arrival - CT chest neg for acute findings - Nml WBC - 05/25: Pt extubated and on 3L/min Hypotension - fluid resusc in process CV stable for discharge home with current meds. She needs 2 week monitor placed prior to discharge so we can monitor for any arrhythmias at home. She needs office f/u with us in 1-2 weeks.
--- NOTE | 2024-05-26 12:11 | PC.NURSE ---
SRNA notified this RN of elevated 1200 BP of 192/113. hospitalist made aware. hospitalist suggested to monitor pt's bp for now and hold off on PRN medications
[2024-05-26] MEDS: AMLODIPINE 5MG TABLET 5 MG PO (12:50)
--- NOTE | 2024-05-26 13:06 | CARE MANAGER ---
Patient will require a walker in order to ambulate safely.
--- NOTE | 2024-05-26 13:15 | EXP.DC.SUM ---
General Admission date:: 05/23/24 HPI HPI HPI: Patient is a 78-year-old female with a medical history significant for COPD, hypertension, CAD s/p stent who presented to the ED via EMS after she was found to be unresponsive at home. Per daughter who was at bedside, she states patient became more weak, slurring speech over the course of the day at which point she was ultimately found to be unresponsive at home. On arrival, patient was hypotensive, hypothermic, and very minimal breath sounds (GCS) and decision was made to rapid sequence intubate patient. Workup significant for ABG pH 7.31, pCO2 47.4, potassium 5.7, magnesium 1.5, AST/ALT 230/175, troponin 0.2, BNP 06945, TSH low 0.25, T4 normal high 11.1. CT abdomen/pelvis revealed bilateral adrenal gland hyperplasia. CTA chest, head/neck CTA did not find reveal acute findings. ECHO does show increased LV wall thickness, LVEF 55%, normal systolic function. Case discussed with the ED provider and decision was made to admit patient for acute encephalopathy of unknown cause requiring mechanical intubation. Hospital Course Hospital Course Hospital Course: Patient is a 78-year-old female with a medical history significant for COPD, hypertension, CAD s/p stent who presented to the ED via EMS after she was found to be unresponsive at home. Per daughter who was at bedside, she states patient became more weak, slurring speech over the course of the day at which point she was ultimately found to be unresponsive at home. On arrival, patient was hypotensive, hypothermic, and very minimal breath sounds (GCS) and decision was made to rapid sequence intubate patient. Workup significant for ABG pH 7.31, pCO2 47.4, potassium 5.7, magnesium 1.5, AST/ALT 230/175, troponin 0.2, BNP 05611, TSH low 0.25, T4 normal high 11.1. CT abdomen/pelvis revealed bilateral adrenal gland hyperplasia. CTA chest, head/neck CTA did not find reveal acute findings. ECHO does show increased LV wall thickness, LVEF 55%, normal systolic function. Case discussed with the ED provider and decision was made to admit patient for acute encephalopathy of unknown cause requiring mechanical intubation as patient had very poor breath sounds. #Acute metabolic encephalopathy, likely acute on chornic hypercarbic respiratory failure #Community acquired pneumonia #Hypotension, resolved #Hypothermia, resolved ? She was reportedly found to be unresponsive with oxygen saturating 20%. Per family, she was normal about 1 day ago prior to admission. ? She was also hypotensive, and hypothermic on arrival and both resolved with fluid resuscitation and warming blankets. ? Initial workup including CTA chest, head/neck did not reveal acute findings. CT abdomen/pelvis did reveal bilateral adrenal gland hyperplasia. UDS unremarkable. - Patient extubated 05/24/24, and transitioned to intermittent Bipap with good tolerance. Alert and responding to commands. Conversational. Feels well today. ? MRI did not show acute findings including anoxic brain injury. ? Transitioned to Levofloxicin, discontinued vancomycin, ceftriaxone, azithromycin. WBC reolved to 10.3. - PT/OT consulted, recommended home health. Patient ambulating with walker. - Discharged with levofloxicin for 4 more days, and 4L nasal cannula. Set up with home health. - Discharged with BiPap for hypercarbic respiratory failure with plan to do home overnight O2 test tonight. BiPAP settings include 6/12 and FiO2 of 35%. #Bilateral adrenal gland hyperplasia - Seen on CTA abdomen/pelvis. Will follow-up with PCP for further evaluation. #Elevated BNP, troponin #Severe RV systolic dysfunction ? Initial BNP 15,200, troponin 0.28?0.2. ? No signs of fluid overload at this time. Chest pain-free. EKG does not show acute ischemic findings. - However, ECHO revealed severe RV systolic dysfunction. - Cardiology consulted and following, PCI s/p stent to RCA 05/25/24. - Discharged with Aspirin 81mg, Plavix 75mg, atorvastatin 40mg. - Will follow-up with cardiology within 1 week. #Abnormal thyroid function test ? TSH low 0.25, total T4 high normal 11.1 indicating possible primary hyperthyroidism. - Free T4 normal, and as such low TSH could be reactive from severe illness on presentation. - Will need repeat TSH in 4 weeks outpatient. ? Thyroid ultrasound during admission: Bilateral TR 3 nodules less than 1 cm. No follow-up required per TI-RADS criteria. Exam Data for Last 24 hours Vital signs and Labs for Last 24 Hours: Temp Pulse Resp BP Pulse Ox O2 Del Method O2 Flow Rate 99.6 F 75 16 192/113 H 90 L Nasal Cannula 2 05/26/24 12:00 05/26/24 12:00 05/26/24 12:00 05/26/24 12:00 05/26/24 12:00 05/26/24 12:00 05/26/24 12:00 FiO2 40 05/25/24 22:00 Laboratory Results - last 24 hr 05/25/24 14:34: Activated Clotting Time 312 H* 05/26/24 05:57: WBC 10.3, RBC 3.19 L, Hgb 10.3 L, Hct 33.9 L, MCV 106.2 H, MCH 32.2 H, MCHC 30.3 L, RDW 13.1, Plt Count 225, MPV 8.0, Neut % (Auto) 76.8, Lymph % (Auto) 12.5, [place] % (Auto) 6.8, Eos % (Auto) 3.1, Baso % (Auto) 0.7, Neut # (Auto) 7.9 H, Lymph # (Auto) 1.3, [place] # (Auto) 0.7, Eos # (Auto) 0.3, Baso # (Auto) 0.1, Sodium 137, Potassium 3.9, Chloride 94 L, Carbon Dioxide 40 H, Anion Gap 6.9, BUN 12 D, Creatinine 0.60, Estimated Creat Clear 30, Estimated GFR 97, Est GFR ( Amer) 117, Glucose 79, Calcium 8.7, Total Bilirubin 0.6, AST 55 H D, ALT 205 H, Alkaline Phosphatase 88, Total Protein 5.6 L, Albumin 3.2 L D, Globulin 2.4, Albumin/Globulin Ratio 1.3 05/26/24 08:25: VBG pH 7.34, VBG pCO2 71.7 H, VBG pO2 44.7 H, VBG HCO3 37.5 H, VBG Total CO2 39.7 H, VBG O2 Saturation 80.2 H, VBG Base Excess 11.6 H, VBG Lactic Acid 1.1 I & O for Last 24 hours: Intake & Output 05/23/24 05/24/24 05/25/24 05/26/24 23:59 23:59 23:59 23:59 Intake Total 1236.030 / 3852.260 5851.994 / 2718.994 1633 / 1783 1313 / 1313 Output Total 1350 / 1375 1999 / 2059 2385 / 2385 0 / 0 Balance -113.970 / -63.970 643.994 / 658.994 -752 / -602 1313 / 1313 Weight 39.009 kg 39 kg 40.5 kg 40.5 kg Microbiology Reports for the Last 24 Hours: Microbiology 05/23/24 09:05 Sputum - Endotracheal Tube Aspirate Gram Stain - Final 05/23/24 09:05 Sputum - Endotracheal Tube Aspirate Sputum Culture - Preliminary Gram Negative Rods 05/23/24 Unknown Blood Blood Culture - Preliminary NO GROWTH AFTER 48 HOURS 05/23/24 11:10 Blood Blood Culture - Preliminary NO GROWTH AFTER 48 HOURS Constitutional Constitutional: no acute distress Comments: Very pleasant. *Routine HEENT Exam Head: Present normocephalic Eye: Present EOMI and PERRL ENT: Present mucous membranes moist *Routine Neck Exam Neck: Present supple; Absent lymphadenopathy *Routine Respiratory Exam Respiratory: Present CTA bilaterally *Routine Cardiovascular Exam Cardiovascular: Present RRR *Routine Abdominal Exam Abdominal: Present soft and normoactive bowel sounds; Absent tenderness *Routine Extremities Exam Extremities: Absent cyanosis, clubbing or edema *Routine Skin Exam Skin: Present warm; Absent rash *Routine Neurological Exam Neurological: Present alert and oriented X3 Results Data Completed and Pending Labs on day of discharge: Labs from last 24 hours 05/26/24 05/26/24 05/25/24 08:25 05:57 14:34 WBC 10.3 RBC 3.19 L Hgb 10.3 L Hct 33.9 L MCV 106.2 H MCH 32.2 H MCHC 30.3 L RDW 13.1 Plt Count 225 MPV 8.0 Neut % (Auto) 76.8 Lymph % (Auto) 12.5 [place] % (Auto) 6.8 Eos % (Auto) 3.1 Baso % (Auto) 0.7 Neut # (Auto) 7.9 H Lymph # (Auto) 1.3 [place] # (Auto) 0.7 Eos # (Auto) 0.3 Baso # (Auto) 0.1 Activated Clotting Time 312 H* VBG pH 7.34 VBG pCO2 71.7 H VBG pO2 44.7 H VBG HCO3 37.5 H VBG Total CO2 39.7 H VBG O2 Saturation 80.2 H VBG Base Excess 11.6 H VBG Lactic Acid 1.1 Sodium 137 Potassium 3.9 Chloride 94 L Carbon Dioxide 40 H Anion Gap 6.9 BUN 12 D Creatinine 0.60 Estimated Creat Clear 30 Estimated GFR 97 Est GFR ( Amer) 117 Glucose 79 Calcium 8.7 Total Bilirubin 0.6 AST 55 H D ALT 205 H Alkaline Phosphatase 88 Total Protein 5.6 L Albumin 3.2 L D Globulin 2.4 Albumin/Globulin Ratio 1.3 Preliminary micro results at discharge 05/23/24 09:05 Sputum Culture - Preliminary Sputum - Endotracheal Tube Aspirate Gram Negative Rods 05/23/24 Unknown Blood Culture - Preliminary Blood NO GROWTH AFTER 48 HOURS 05/23/24 11:10 Blood Culture - Preliminary Blood NO GROWTH AFTER 48 HOURS DS: Diagnosis Discharge Diagnosis (1) Acute and chronic respiratory failure with hypoxia: Status: Acute Code(s): J96.21 - Acute and chronic respiratory failure with hypoxia (2) On mechanically assisted ventilation: Status: Resolved Code(s): Z99.11 - Dependence on respirator [ventilator] status (3) Acute on chronic respiratory failure with hypoxia and hypercapnia: Status: Resolved Code(s): J96.21 - Acute and chronic respiratory failure with hypoxia; J96.22 - Acute and chronic respiratory failure with hypercapnia (4) Pneumonia: Status: Acute Code(s): J18.9 - Pneumonia, unspecified organism Meds Home Medications and Allergies Home Medications ?Medication ?Instructions ?Recorded ?Confirmed ?Type losartan 50 mg tablet 50 mg PO DAILY High Blood Pressure 03/18/22 05/30/24 History cholecalciferol (vitamin D3) 1,250 1,250 mcg PO WEEKLY Supplement 08/05/22 05/30/24 History mcg (50,000 unit) tablet albuterol sulfate 90 mcg/actuation 2 inh inhalation QIDP PRN 07/17/23 05/30/24 History aerosol inhaler shortness of breath or wheezing aspirin 81 mg chewable tablet 81 mg PO DAILY Heart Disease 07/17/23 05/30/24 History fluticasone 500 mcg-salmeterol 50 1 inh inhalation BIDRT Copd 07/17/23 05/30/24 History mcg/dose blistr powdr for inhalation (Advair Diskus) lorazepam 0.5 mg tablet 0.25 mg (1/2 x 0.5 mg) PO BIDP PRN 07/18/23 05/30/24 Rx Anxiety 3 days #3 tabs umeclidinium 62.5 mcg/actuation 1 inh inhalation DAILY 90 days #90 10/27/23 05/30/24 Rx blister powder for inhalation ea (Incruse Ellipta) clopidogrel 75 mg tablet (Plavix) 75 mg PO DAILY Blood Thinner #30 03/20/24 05/30/24 Rx tabs metoprolol succinate 25 mg 25 mg PO DAILY High Blood Pressure 05/18/24 05/30/24 Rx tablet,extended release 24 hr #90 tabs amlodipine 5 mg tablet 5 mg PO DAILY #30 tabs 05/26/24 05/30/24 Rx atorvastatin 40 mg tablet 40 mg PO HS #30 tabs 05/26/24 05/30/24 Rx clopidogrel 75 mg tablet 75 mg PO DAILY 30 days #30 tabs 05/26/24 05/30/24 Rx ipratropium 0.5 mg-albuterol 3 mg 3 ml inhalation TID shortness of 05/26/24 05/30/24 Rx (2.5 mg base)/3 mL nebulization breath or wheezing #90 mL soln levofloxacin 750 mg tablet 750 mg PO DAILY #4 tabs 05/26/24 05/30/24 Rx albuterol sulfate 90 mcg/actuation 2 inh inhalation QID PRN shortness 05/30/24 05/30/24 Rx aerosol inhaler of breath or wheezing 90 days #8.5 grams fluticasone 500 mcg-salmeterol 50 1 inh inhalation BID #180 ea 05/30/24 05/30/24 Rx mcg/dose blistr powdr for inhalation (Advair Diskus) ipratropium 0.5 mg-albuterol 3 mg 3 ml inhalation QID PRN shortness 05/30/24 05/30/24 Rx (2.5 mg base)/3 mL nebulization of breath or wheezing 90 days #270 soln mL prednisone 20 mg tablet See Rx Instructions PO .COMPLEX 10 05/30/24 05/30/24 Rx days #15 tabs umeclidinium 62.5 mcg/actuation 1 inh inhalation DAILY 90 days #90 05/30/24 05/30/24 Rx blister powder for inhalation ea (Incruse Ellipta) New Prescriptions to Start Prescriptions: amlodipine [place],Mariano atorvastatin [place],Mariano clopidogrel [place],Mariano ipratropium-albuterol [place],Mariano levofloxacin Mariano Fierro Allergies Allergy/AdvReac Type Severity Reaction Status Date / Time No Known Allergies Allergy Verified 05/30/24 10:09 Discharge Plan Disposition Patient Disposition: Home Health Service Condition: Fair Discharge Order Discharge Orders: Discharge Order (Routine); Ordered 05/26/24 Ordered By: Mariano Fierro Follow up Plan Follow up with: Rory Simpson MD [Staff Physician] - 05/30/24 9:15 am (Within 1 week) Kayleigh Sibley MD [Physician] - 06/05/24 1:20 pm Shawn Mata MD [Staff Physician] - 06/02/24 12:00 pm Prescriptions/Medication Reconciliation: New atorvastatin 40 mg Tablet 40 mg PO HS Qty: 30 0RF amlodipine 5 mg Tablet 5 mg PO DAILY Qty: 30 0RF clopidogrel 75 mg Tablet 75 mg PO DAILY 30 Days Qty: 30 0RF levofloxacin 750 mg tablet 750 mg PO DAILY Qty: 4 0RF Continued cholecalciferol (vitamin D3) 1,250 mcg (50,000 unit) tablet 1,250 mcg PO WEEKLY losartan 50 mg tablet 50 mg PO DAILY Incruse Ellipta 62.5 mcg/actuation blister with device 1 inh inhalation DAILY 90 Days Qty: 90 3RF clopidogrel [Plavix] 75 mg tablet 75 mg PO DAILY Qty: 30 5RF metoprolol succinate 25 mg tablet extended release 24 hr 25 mg PO DAILY Qty: 90 1RF fluticasone propion-salmeterol [Advair Diskus] 500-50 mcg/dose blister with device 1 inh IH BIDRT aspirin 81 mg tablet,chewable 81 mg PO DAILY albuterol sulfate 90 mcg/actuation HFA aerosol inhaler 2 inh IH QIDP PRN (Reason: shortness of breath or wheezing) lorazepam 0.5 mg Tablet 0.25 mg PO BIDP PRN (Reason: Anxiety) 3 Days Qty: 3 0RF Changed ipratropium-albuterol 0.5 mg-3 mg(2.5 mg base)/3 mL solution for nebulization 3 ml IH TID Qty: 90 12RF Discontinued atorvastatin 20 mg tablet 20 mg PO DAILY Qty: 30 5RF No Action fluticasone propion-salmeterol [Advair Diskus] 500-50 mcg/dose blister with device 1 inh inhalation BID Qty: 180 2RF Incruse Ellipta 62.5 mcg/actuation blister with device 1 inh inhalation DAILY 90 Days Qty: 90 3RF albuterol sulfate 90 mcg/actuation HFA aerosol inhaler 2 inh inhalation QID PRN (Reason: shortness of breath or wheezing) 90 Days Qty: 8.5 2RF ipratropium-albuterol 0.5 mg-3 mg(2.5 mg base)/3 mL solution for nebulization 3 ml inhalation QID PRN (Reason: shortness of breath or wheezing) 90 Days Qty: 270 2RF prednisone 20 mg tablet See Rx Instructions PO .COMPLEX 10 Days Qty: 15 0RF Rx Instructions: orally; Take 40 mg (2 tabs) daily for 5 days followed by 20 mg (one tab) daily for 5 days and then discontinue. Other Ambulatory Orders: Home Medical Equipment (Routine) Location: None Selected Ordered By: Mariano Fierro Home Medical Equipment (Routine) Location: None Selected Ordered By: Mariano Fierro Problem Reconciliation Problems Reviewed?: Yes Patient Discharge Instructions ACTIVITY: Continue current activity DIET: continue same diet Additional Instructions: Please follow-up with cardiology within 1 week. A BiPAP machine should be delivered to you tomorrow. Someone will come help set that up for you. If you do not get the delivery, please call the hospital as soon as possible. Patient Instructions: DI for Chronic Obstructive Pulmonary Disease, DI for Surgical Site Infection, Ventilator-Associated Pneumonia, Catheter-Associated Urinary Tract Infection Print Language: Swedish Providers Primary Care Provider: Provider,Referral Admit Provider: Mariano Fierro Attending Provider: Mariano Fierro
--- NOTE | 2024-05-30 14:36 | CARE MANAGER ---
Contacted patient related to hospital discharge. She states she is ok. She denies questions or concerns. She is aware of new medications and medication changes. She also is aware of follow up appointments. JUAN F Aguilar
== END 2024-05-26 15:49 | disposition home health service (06) | DRG 208 ==
LOC: ER 12:18 → 2ND 17:05
PROVIDERS: Internal Medicine; Internal Medicine Pulmonary Disease; Admitting Provider Student in an Organized Health Care Education/Training Program; Emergency Provider Emergency Medicine; Visit Provider Student in an Organized Health Care Education/Training Program
DX: G93.41 Metabolic encephalopathy (principal); J96.21 Acute and chronic respiratory failure with hypoxia; J18.9 Pneumonia, unspecified organism; J44.1 Chronic obstructive pulmonary disease with (acute) exacerbation; I42.2 Other hypertrophic cardiomyopathy; R64 Cachexia; Z68.1 Body mass index [BMI] 19.9 or less, adult; Z99.81 Dependence on supplemental oxygen; I25.10 Atherosclerotic heart disease of native coronary artery without angina pectoris; T68.XXXA Hypothermia, initial encounter; N18.30 Chronic kidney disease, stage 3 unspecified; I95.9 Hypotension, unspecified; I12.9 Hypertensive chronic kidney disease with stage 1 through stage 4 chronic kidney disease, or unspecified chronic kidney disease; E27.8 Other specified disorders of adrenal gland; Z73.89 Other problems related to life management difficulty; Z95.5 Presence of coronary angioplasty implant and graft; Z74.01 Bed confinement status; Z79.899 Other long term (current) drug therapy; R40.2432 Glasgow coma scale score 3-8, at arrival to emergency department
CPT/HCPCS: 31500; 94640; 96365; 96366; 96367; 96375; 99285; 36415; 70450; 70496; 70498; 70551; 71045; 71275; 74018; 74177; 76536; 76705; 80051; 80053; 80307; 80320; 80329; 81001; 82550; 82803; 83605; 83690; 83735; 83880; 84436; 84439; 84443; 84484; 85007; 85025; 85027; 85347; 86803; 87040; 87070; 87077; 87186; 87205; 87389; 92610; 93005; 93306; 94003; 94660; 94761; 97163; 97166; 97530; 99152; 99291; 99292; C1725; C1769; C1874; G0480; J0131; J0456; J0696; J1200; J1644; J1650; J1956; J2250; J2543; J2704; J2919; J3010; J3370; J3475; J7050; J7120; J7620; Q9967

== ENCOUNTER 2024-06-02 12:59 | Outpatient (CLI) | payer MEDICARE, OTHER, SELFPAY | END 2024-06-02 23:59 | disposition home or self-care (01) | LOC: RT 13:01 | PROVIDERS: PCP Internal Medicine Adolescent Medicine; Visit Provider Physician Assistant | DX: R55 Syncope and collapse (principal) | CPT/HCPCS: 93270 ==

== ENCOUNTER 2024-07-10 09:51 | Outpatient (CLI) | payer MEDICARE, OTHER, SELFPAY ==
--- NOTE | 2024-07-10 10:05 | MR_ITS ---
APPROVED REPORT [employer] Makeup Artist: CLINICAL INDICATION RV dilation on TTE TECHNIQUE Image Acquisition: Cardiac magnetic resonance (CMR) was performed on Siemens Espree MRI 1.5T scanner. Software platform sequences were performed using the Siemens [employer] MR B19 platform. A set of three-plane, low-resolution, large [id number] localizers were initially acquired. Then axial, coronal, sagittal TrueFISP, as well as axial HASTE images, were obtained. These were followed by gated TrueFISP breathold cinematic sequences obtained in the short axis with 8 mm slices and 2 mm gaps, 2-chamber (vertical long axis), 3-chamber, 4-chamber (horizontal long axis). A bolus of contrast was injected intravenously with first-pass sequences obtained in the short axis and four-chamber planes. After approximately 10 minutes, a TI health assistant sequence was performed to determine the optimal TI time. Using the optimized TI time, delayed contrast enhancement segmented inversion???recovery TurboFLASH sequences were obtained in the short axis, 2-chamber, 3-chamber, and 4-chamber projections. 2D-velocity phase mapping was performed. Functional parameters were calculated by offline analysis on an independent workstation ([employer], [employer] Doctor). Contrast: ProHance??? (Gadoteridol) FINDINGS MORPHOLOGY AND FUNCTION Left ventricle: The left ventricle is normal in size. The indexed left ventricular end-diastolic volume (LVEDVi) is 56 ml/m2 (reference range 57-105 ml/m2 in males, 56-96 ml/m2 in females). Normal left ventricular systolic function is present. There is normal left ventricular wall thickness. There are no regional wall motion abnormalities noted. LVEF is calculated at 68.2% (reference range 57-77%). Right ventricle: The right ventricle is normal in size. The indexed right ventricular end-diastolic volume (RVEDVi) is 50 ml/m2 (reference range 61-121 ml/m2 in males, 48-112 ml/m2 in females). There is mild reduction in right ventricular systolic function. RVEF is calculated at 48.0% (reference range 52-72% in males, 51-71% in females). Atria: The left atrium is normal in size. The maximum indexed left atrial volume is 26 ml/m2 (reference range 26-52 ml/m2 in males, 27-53 ml/m2 in females). The right atrium is normal in size. The maximum indexed right atrial volume is 20 ml/m2 (reference range 18-90 ml/m2). Aorta: The diameter of the aortic annulus is normal, measuring 23 mm (coronal view reference range 21-30 mm in males, 19-27 mm in females). The diameter of the aortic sinus is normal, measuring 33 mm (coronal view reference range 25-42 mm in males, 24-36 mm in females). The diameter of the sinotubular junction is normal, measuring 26 mm (coronal view reference range 18-32 mm in males, 18-28 mm in females). The diameters of the ascending and descending thoracic aorta are normal. Main pulmonary artery: The main pulmonary artery diameter is normal. Pericardium: The pericardial thickness is normal. The pericardial thickness measures 1.0 mm (normal < 4.0 mm). There is no pericardial effusion. VALVES The valvular morphologies in the visualized sequences appear normal. There is no significant valvular stenosis or regurgitation of the mitral, aortic, tricuspid, or pulmonic valve noted visually. Systolic anterior motion of the mitral valve is not visualized. Ratio of pulmonary to systemic flow, Qp:Qs ratio = 1.1 (normal < or = 1.2, hemodynamically significant shunt > 1.5), demonstrating no evidence of hemodynamically significant shunt. TISSUE CHARACTERIZATION Resting Perfusion: Normal myocardial blood flow at rest. No evidence of resting hypoperfusion. Myocardial Fibrosis and/or edema: Normal gadolinium kinetics are present. No evidence of late gadolinium enhancement is noted, consistent with absence of myocardial scarring, infarction, or necrosis. T2-weighted imaging demonstrates no evidence of myocardial edema or inflammation. OTHER No other significant findings are noted. However, this exam is focused on the cardiac structure and function. IMPRESSION Normal LV size with normal LV systolic function. LVEDVi= 56 ml/m2 and LVEF= 68.2%. Normal RV size with mild reduction in RV systolic function. RVEDVi= 50 ml/m2 and RVEF= 48.0%. No atrial enlargement. No CMR evidence of myocardial scarring, infarction, or necrosis. No evidence of myocardial edema or inflammation. Perfusion analysis demonstrates normal blood flow at rest with no evidence of resting hypoperfusion. Ratio of pulmonary to systemic flow, Qp:Qs ratio = 1.1 (normal < or = 1.2, hemodynamically significant shunt > 1.5), demonstrating no evidence of hemodynamically significant shunt. Overall, this CMR demonstrates normal LV systolic function. There is mild reduction in RV function. Findings do not meet CMR criteria for ARVC. No evidence of interatrial shunt. Of note, when directly compared with the RV findings on TTE, the RV function appears to have improved in the interim. COMPARISON None CRITICAL RESULT None COMMUNICATION The above findings were communicated with the patient at the time of her routine outpatient cardiology clinic visit. The findings of this cardiac MR were reviewed, reported, and signed by Layo Hale MD (Synchronous Motor Assembler). Conclusion Electronically signed by : Swetha Hale MD 07/13/2024 00:10:25
[2024-07-10 10:26] LABS: Basophils # 0.1 K/mm3 (0-0.2); Basophils % 1.3 % (0.1-2.0); Eosinophils # 0.2 K/mm3 (0.0-0.4); Eosinophils % 2.5 % (0.1-12.0); Hematocrit 36.1 % (37.0-47.0); Hemoglobin 11.9 g/dL (12.2-16.2); Lymphocytes # 1.7 K/mm3 (0.7-4.5); Lymphocytes % 20.1 % (10-50); Mean Corpuscular Hemoglobin 31.2 pg (27.0-31.2); Mean Corpuscular Volume 94.4 fl (81-99); Mean Platelet Volume 7.9 fl (7.4-10.4); Monocytes # 0.4 K/mm3 (0.1-1.0); Monocytes % 5.1 % (1.7-9.3); Neutrophils # 5.8 K/mm3 (1.8-7.8); Platelet Count 243 K/mm3 (142-424); Red Blood Count 3.82 M/mm3 (4.20-5.40); White Blood Count 8.2 K/mm3 (4.8-10.8)
[2024-07-10 10:35] LABS: Albumin Level 3.8 g/dl (3.5-5.0); Chloride 92 mmol/L (98-107); Potassium 4.4 mmoL/L (3.5-5.1)
[2024-07-10 10:38] LABS: Alanine Aminotransferase 18 U/L (12-78); Albumin/Globulin Ratio 1.6 (1.1-1.8); Blood Urea Nitrogen 17 mg/dl (7-17); Estimated Glomerular Filt Rate 120 ml/min (>60); GFR (African American) 145 ML/MIN (>60); Globulin 2.4 g/dL (1.3-3.2); Total Protein,Serum 6.2 g/dl (6.3-8.2)
[2024-07-10 11:13] LABS: Sodium 136 mmol/L (136-145)
[2024-07-10 11:14] LABS: Thyroid Stimulating Hormone 0.78 uIU/mL (0.465-4.68)
[2024-07-10 11:16] LABS: Alkaline Phosphatase 96 U/L (38-126); Aspartate Amino Transferase 20 U/L (14-36); Bilirubin,Total 0.5 mg/dl (0.2-1.3)
[2024-07-10 11:17] LABS: Calcium 9.2 mg/dl (8.4-10.2); Glucose 121 mg/dl (74-100)
[2024-07-10 11:25] LABS: Anion Gap 11.4 mEq/L (5-15); Carbon Dioxide 37 mmol/L (22.0-30.0)
[2024-07-10] MEDS: GADOTERIDOL INJ 10ML SYRINGE 10 ML IV (12:11)
[2024-07-10] MEDS: 0.9 % SODIUM CHLORIDE 50 ML VIAL IV (12:11)
[2024-07-10] MEDS: SODIUM CHLORIDE 0.9% 10ML SYR (RAD ONLY) 10 ML IV (12:11)
== END 2024-07-10 23:59 | disposition home or self-care (01) ==
LOC: RAD 09:52
PROVIDERS: Nurse Practitioner Family; PCP Internal Medicine Adolescent Medicine; Visit Provider Physician Assistant
DX: I51.7 Cardiomegaly (principal); I10 Essential (primary) hypertension
CPT/HCPCS: 36415; 75561; 80053; 84443; 85025; A9576

== ENCOUNTER 2024-11-10 09:35 | Outpatient (CLI) | payer MEDICARE, OTHER, SELFPAY ==
[2024-11-10 10:25] LABS: Blood Urea Nitrogen 23 mg/dl (7-17); Calcium 8.8 mg/dl (8.4-10.2); Chloride 94 mmol/L (98-107); Estimated Glomerular Filt Rate 120 ml/min (>60); GFR (African American) 145 ML/MIN (>60); Glucose 99 mg/dl (74-100); Sodium 136 mmol/L (136-145)
[2024-11-10 10:28] LABS: Potassium 4.9 mmoL/L (3.5-5.1)
[2024-11-10 10:33] LABS: Anion Gap 9.9 mEq/L (5-15); Carbon Dioxide 37 mmol/L (22.0-30.0)
== END 2024-11-10 23:59 | disposition home or self-care (01) ==
LOC: LAB 09:36
PROVIDERS: PCP Internal Medicine Adolescent Medicine; Visit Provider Internal Medicine
DX: R94.31 Abnormal electrocardiogram [ECG] [EKG] (principal); I25.10 Atherosclerotic heart disease of native coronary artery without angina pectoris; R06.09 Other forms of dyspnea; J43.9 Emphysema, unspecified; I10 Essential (primary) hypertension
CPT/HCPCS: 36415; 80048